=== PATIENT | male | born 1940 | race Caucasian/White ===

== ENCOUNTER → 2016-12-02 | Outpatient (CLI) | payer MEDICARE, OTHER ==
[2016-05-27 18:09] VITALS: BP 147/63
[~2016-12-02] MED LIST: ACET500T68 PO; AMLO5TAB2 PO; ASPI-482 PO; ASPI325T8 PO; ATOR10TA60 PO; CLOP75TA PO; CLOP75TA57 PO; COLON HELPER; DIPH25CA58 PO; DOCU-109 PO; FINA5TAB4 PO; FLUO10TA PO; GABA600T2 PO; GADOBUTROL 10 MMOL/10 ML VIAL IV ONE; HYDR12.53 PO; IRON1TAB30 PO; ISOS60TA2 PO; MULT-658 PO; OMEP40CA5 PO; PYRI100T PO; RANO500T2 PO; TAMS0.4C2 PO; ZOLP10TA4 PO
--- NOTE | 2016-12-02 12:33 | KCIC ---
MRI Cervical Spine Without Contrast History: Cervical and lumbar radiculopathy, involuntary spasms, neuropathy, ACDF, left radiculopathy for one year, chronic neck pain Technique: Multiplanar, multi sequential noncontrast MR imaging was performed of the cervical spine. Comparison: April 16, 2016 Findings: There is motion degradation, limits accurate evaluation of the neural foramina. As seen previously, there has been anterior cervical fusion at C5, C6, C7. Hardware is not accurately evaluated. Cervical vertebral body stature is unchanged, again superior height loss of C5. There is similar mild grade 1 anterior spondylolisthesis C4-5. There is no significant focal marrow edema. There is no new abnormality of the cervical medullary junction. C2-C3: Spinal canal is adequate. Neural foramina are not significantly narrowed. There is left facet degenerative change. C3-C4: There is again severe right and mild left facet degenerative change. There is uncovertebral degenerative change greater on the right. There is buckling of the ligamentum flavum. There is similar minimal posterior disc osteophyte complex. Central canal is borderline 10 mm. There is likely moderate to severe right and at least mild left neural foramina compromise. C4-C5: There is again fairly severe left and moderate right facet degenerative change. There is mild buckling of the ligamentum flavum. Central canal is minimally narrowed to approximately 9 mm. Right neural foramen is adequate, likely baln-jk-mwkdomxz narrowing of the left neural foramen. C5-C6: Spinal canal is adequate. There is bilateral facet hypertrophic change greater on the left. There is likely wirj-ze-mkjavedn narrowing of the left neural foramen, right neural foramen overall adequate. C6-C7: Spinal canal is adequate. Osteophytes again result in at least mild narrowing of the left neural foramen. Right neural foramen is not significantly narrowed. C7-T1: Spinal canal is adequate. There is facet degenerative change. There is likely mild narrowing of the left neural foramen, right neural foramen not significantly narrowed. Impression: 1. Exam is degraded by motion. Findings have not convincingly changed compared with the April 16, 2016 exam. There is mild spinal stenosis C4-5. There is suspected neural foramina compromise greatest on the right at C3-4, to a lesser degree at other levels. There has been anterior cervical fusion C5, C6, C7. Electronically signed by: Jordan Baker MD (12/02/2016 12:30 PM)
--- NOTE | 2016-12-02 13:00 | KCIC ---
MRI Lumbar Spine without contrast History: Cervical lumbar radiculopathy, involuntary spasms, previous surgeries, bilateral radiculopathy, chronic low back pain Technique: Multiplanar, multi sequential noncontrast MR imaging was performed of the lumbar spine. Contrast: None due to patient's renal function Comparison: March 25, 2016 Findings: There again has been multilevel posterolateral fusion L3, L4, L5, S1. Exam does not accurately evaluate integrity of hardware. Lumbar vertebral body stature is maintained. AP alignment is unchanged, similar minimal posterior subluxation of L5 relative S1. There is again fairly advanced degenerative disc disease at L1-2, similar associated endplate edema likely reactive/degenerative in etiology. There is again advanced degenerative disc disease at L4-5 and L5-S1, minimally at L2-3 and L3-4. Conus terminates at L1. There are T2 hyperintense foci of the bilateral kidneys, likely cysts. L1-L2: There is again disc osteophyte complex with superimposed bulge/protrusion greater in the far left lateral recess. There is mild/moderate buckling of the ligamentum flavum and moderate facet hypertrophic change. There is again moderate to severe left lateral recess stenosis, contact of the descending left L2 nerve root. There is mild/moderate narrowing of the central canal and mild right lateral recess stenosis. There is similar moderate to severe left and moderate right neural foramina compromise. L2-L3: There is vfzi-ke-hcdhiyex facet degenerative change and buckling of the ligamentum flavum. There is minimal disc osteophyte complex extending into the inferior neural foramina. There is mild neural foramina compromise bilaterally. There is minimal narrowing of the far right lateral recess as seen previously. L3-L4: There is again right laminectomy defect. There is facet hypertrophic change. Spinal canal is adequate. There is again mild narrowing of the neural foramina bilaterally in part by minimal disc osteophyte complex. L4-L5: There are again laminectomy defects. Posterior osteophytes slightly indent the ventral thecal sac greater in the left lateral recess, contact of the ventral surface descending left L5 nerve root. There is mild left lateral recess stenosis by osteophytes as seen previously. There is suspected mild bilateral neural foramina compromise greater on the left by osteophytes. L5-S1: There is fairly severe facet degenerative change. There is a broad right laminectomy defect. Spinal canal is overall adequate. There is again at least moderate narrowing of the left neural foramen by facet and disc osteophyte complex, also moderate narrowing on the right. Impression: 1. Findings are similar compared with the March 2016 exam. There again has been multilevel posterolateral fusion L3-S1.There is again multilevel lumbar degenerative disc disease, again endplate edema at L1-2 probably reactive/degenerative in etiology. There is again left lateral recess stenosis at L1-2 with contact descending left L2 nerve root, yeiu-kq-swfcipwk narrowing of the central canal at this level. 2. There is multilevel lumbar neural foramina compromise greatest bilaterally at L5-S1 and left greater than right at L1-2. Electronically signed by: Jordan Baker MD (12/02/2016 12:57 PM)
== END | disposition home or self-care (01) ==
LOC: KCIC MRI 10:29
PROVIDERS: ATTEND Neurological Surgery
DX: M51.36 Other intervertebral disc degeneration, lumbar region (principal); M25.78 Osteophyte, vertebrae; M48.06 Spinal stenosis, lumbar region
CPT/HCPCS: 72141; 72148; 82565

== ENCOUNTER → 2017-01-02 | Outpatient (CLI) | payer MEDICARE, OTHER ==
[2016-05-27 18:09] VITALS: BP 147/63
[~2017-01-02] MED LIST changes: -GADOBUTROL 10 MMOL/10 ML VIAL IV ONE; +IOHEXOL 180 MG/ML 10 ML VIAL. ONE; +methylPREDNISolone ACETATE 40 MG/ML VIAL. ONE; +methylPREDNISolone ACETATE 80 MG/ML VIAL. ONE
--- NOTE | 2017-01-03 01:22 | PAIN ---
DATE OF SERVICE: 01/02/2017 DIAGNOSES: 1. Lumbar radiculopathy with lumbar post-laminectomy syndrome. 2. Cervical radiculopathy with post-cervical laminectomy syndrome. 3. Right hip joint pain with osteoarthritis. HISTORY OF PRESENT ILLNESS: The patient is a 76-year-old male who returns for followup status post evaluation and holding his Plavix by clearance from his risk officer. He has been off of it for 10 days now by his reports. He reports significant pain still in low back, bilateral lower extremities, radiating anywhere from a 3-4 on a scale 10, currently is 3 today, worse with activity, standing, walking. It is a tingling pain that is becoming more constant and aching in the low back and lower extremity as well as the posterior gluteus, posterior thighs to the knees and the lower legs, occasionally in the calves bilaterally. The patient reports it awakens him at least twice at night. He is only sleeping about 3 hours at times. He has to reposition and get out of bed, and take pain medication to get some sleep. The patient reports no new motor or sensory deficits, no new bowel or bladder incontinence or other complaints. PHYSICAL EXAMINATION: VITAL SIGNS: Blood pressure is 120/68, pulse 67, respirations 18, temperature 97.4 degrees Fahrenheit, height is 5 feet 8 inches, weight is 189 pounds. GENERAL: The patient is awake, alert, oriented, appropriate, very pleasant demeanor. HEENT: Head shows normocephalic, atraumatic. Extraocular movements are intact, symmetrical. Oral cavity, mucous membranes are moist and pink. Dentition is intact. NECK: Shows anterior throat supple without palpable lymphadenopathy noted. Swallow reflex is symmetrical. CHEST: Shows normal on inspection. Breath sounds are clear to auscultation bilaterally. HEART: Shows S1 and S2 clear. ABDOMEN: Soft, nontender, nondistended. No palpable organomegaly, no rebound or guarding demonstrated. BACK: Shows spine grossly in midline with well-healed surgical scarring noted. The patient's lumbar paraspinous muscle shows some moderate tenderness to palpation, but only diffusely in the lower lumbar distribution. The patient shows good rotational motion with some limitation with extension, but not secondary to pain. No tenderness over the sacrum or sacroiliac regions. Lower extremities show deep tendon reflexes at 1+ in the patellar and tendo calcaneus tendons. Motor exam is strong with 5/5 dorsiflexion and extension as well as quadriceps and hamstring flexion equal. Peripheral pulses are 1+ and no edema bilaterally. Options were discussed with the patient and the patient's old chart was reviewed as his current medication regimen updated. Current review of systems updated today as well. I would like to proceed with a caudal approach epidural steroid injection. Risks were again discussed including, but not limited to bleeding, infection, possibility of epidural hematoma, subsequent neurologic compromise, dural puncture, headaches, spinal cord and/or nerve damage, side effects of steroid medication and poor results regarding pain control. The patient understands and wishes to proceed. The patient will return to clinic in approximately 2 weeks for followup, was counseled on return appointment, activity level and side effects to be aware of. The patient will start his Plavix again tonight as instructed with his risk officer and will follow up as scheduled. DIAGNOSES: Lumbar radiculopathy with post-lumbar laminectomy syndrome. PROCEDURE: Caudal approach epidural steroid injection using C-arm fluoroscopic guidance under sterile prep and drape using local anesthetic. Medications injected is 120 mg Depo-Medrol plus 10 mL of preservative-free normal saline and 2 mL Isovue for contrast. CONDITION AT DISCHARGE: Stable. The patient tolerated procedure well, had no complications. MARTIN RAMSAY MD DR: FARRAH/edmundo JOB#: [id number] / [id number]
== END | disposition home or self-care (01) ==
LOC: PNCL 09:27
PROVIDERS: ATTEND Anesthesiology
DX: M54.16 Radiculopathy, lumbar region (principal); M54.12 Radiculopathy, cervical region; M96.1 Postlaminectomy syndrome, not elsewhere classified; M16.11 Unilateral primary osteoarthritis, right hip; I25.10 Atherosclerotic heart disease of native coronary artery without angina pectoris; E78.00 Pure hypercholesterolemia, unspecified; I10 Essential (primary) hypertension; Z86.69 Personal history of other diseases of the nervous system and sense organs; Z86.14 Personal history of Methicillin resistant Staphylococcus aureus infection; Z88.6 Allergy status to analgesic agent
CPT/HCPCS: 62323; J1030; J1040

== ENCOUNTER → 2017-01-30 | Outpatient (CLI) | payer MEDICARE ==
[2016-05-27 18:09] VITALS: BP 147/63
--- NOTE | 2017-01-30 11:42 | PAIN ---
DATE OF SERVICE: 01/30/2017 PROGRESS NOTE FOR PAIN CLINIC DIAGNOSES: 1. Lumbar radiculopathy with post-lumbar laminectomy syndrome. 2. Cervical radiculopathy with post-cervical laminectomy syndrome. 3. Right hip joint pain with primary osteoarthritis, right hip joint. HISTORY OF PRESENT ILLNESS: The patient is a 76-year-old male who returns for followup status post caudal approach epidural steroid injection x 1, reports no significant improvement after the injection. Reports still significant pain in the low back, bilateral lower extremities, worse on the right than the left, radiating in to the posterior gluteus, posterior thighs, posterior lower legs, tingling, constant, aching, rates it as a 5 on a scale of 10 at its worse. Currently, a 3 on a scale of 10, which is at its least ____ average. The patient reports it is worse with walking, standing, change in positions, waking up from sleep about every 3-4 hours, has to reposition or take pain medication, get out of bed because of the pain. Also the right hip, he is scheduled to have a right total hip replacement in about 2 weeks. The patient reports he is off his Plavix now for 7 days, reports no new motor or sensory deficits, no new bowel or bladder incontinence or other complaints. PHYSICAL EXAMINATION: VITAL SIGNS: The patient's blood pressure is 141/78, pulse 61, respirations are 18, temperature is 98.1 degrees Fahrenheit. Height is 5 feet 8 inches, weighs 192 pounds. GENERAL: The patient is awake, alert, oriented, appropriate, very pleasant demeanor. HEENT: Head shows normocephalic, atraumatic. Extraocular movements are intact and symmetrical. Oral cavity, mucous membranes are moist and pink. Dentition is intact. NECK: Shows anterior throat is supple without palpable lymphadenopathy noted. Swallow reflex is symmetrical. CHEST: Shows normal on inspection. Breath sounds are clear to auscultation bilaterally. HEART: Shows S1 and S2 clear. No murmurs auscultated. ABDOMEN: Obese, soft, nontender, nondistended. BACK: Shows spine grossly in the midline. Flattening of lumbar lordotic curvature is noted with significant surgical scarring noted. The patient shows significant tenderness with palpation throughout the middle and lower distribution of paraspinous musculature with some limitation of motion both laterally as well as extension and flexion, but without significant pain, just limited rotation secondary to previous surgery. EXTREMITIES: Lower extremities show deep tendon reflexes 1+ in the patellar and tendo calcaneus tendons are equal. Motor exam is strong with 5/5 dorsiflexion, extension, quadriceps and hamstring flexion and symmetrical. Peripheral pulses are 1+ posterior tibial and equal bilaterally. Options were discussed with the patient and the patient's old chart was reviewed as his current medication regimen updated. Current review of systems updated today as well and we will proceed with the second in the series caudal epidural steroid injection with fluoroscopic guidance. Risks were again discussed including, but not limited to, bleeding, infection, possibility of epidural hematoma, subsequent neurologic compromise, dural puncture, headaches, spinal cord and/or nerve damage, side effects of steroid medication and poor results regarding pain control. The patient understands and wishes to proceed. The patient will return to clinic in approximately 2 weeks for followup. He was counseled to return appointment, activity level and side effects to be aware of. DIAGNOSES: Lumbar radiculopathy with post-lumbar laminectomy syndrome. PROCEDURE: Caudal approach epidural steroid injection using C-arm fluoroscopic guidance under sterile prep and drape using local anesthetic. MEDICATIONS INJECTED: A total of 120 mg Depo-Medrol plus 10 mL of preservative-free normal saline and 2 mL of Isovue for contrast. CONDITION AT DISCHARGE: Stable. The patient tolerated procedure well, had no complications. MARTIN RAMSAY MD DR: FARRAH/edmundo JOB#: [id number] / [id number]
== END | disposition home or self-care (01) ==
LOC: PNCL 09:20
PROVIDERS: ATTEND Anesthesiology
DX: M54.16 Radiculopathy, lumbar region (principal); M96.1 Postlaminectomy syndrome, not elsewhere classified; M54.12 Radiculopathy, cervical region; M16.11 Unilateral primary osteoarthritis, right hip; I25.10 Atherosclerotic heart disease of native coronary artery without angina pectoris; E78.00 Pure hypercholesterolemia, unspecified; I10 Essential (primary) hypertension; Z86.69 Personal history of other diseases of the nervous system and sense organs; Z86.14 Personal history of Methicillin resistant Staphylococcus aureus infection; Z88.8 Allergy status to other drugs, medicaments and biological substances
CPT/HCPCS: 62323; J1030; J1040

== ENCOUNTER 2017-03-27 12:18 | Emergency (ER) | payer MEDICARE ==
[~2017-03-27] VITALS: Ht 172.7 cm; Wt 86.2 kg
[~2017-03-27 12:18] MED LIST changes: -IOHEXOL 180 MG/ML 10 ML VIAL. ONE; -methylPREDNISolone ACETATE 40 MG/ML VIAL. ONE; -methylPREDNISolone ACETATE 80 MG/ML VIAL. ONE
[2017-03-27 13:05] VITALS: BP 162/79
[2017-03-27] MEDS ORDERED: ONDA4TAB12 PO (13:39)
[2017-03-27] MEDS ORDERED: PRED20TA PO (13:39)
--- NOTE | 2017-03-27 13:39 | PHYS DOC ---
Past Medical History Past Medical History: CAD, Hypertension, Other Additional Past Medical Histor: peripheral neuropathy, meningitis Past Surgical History: Coronary Bypass Surgery, Other Additional Past Surgical Histo: several back surgeries Alcohol Use: None Drug Use: None Adult General Chief Complaint Chief Complaint: KNEE PAIN HPI HPI Patient is a 76 year old male who presents ambulatory to the ED, using a cane, with the complaint of right knee pain. Patient states he had a right hip replacement about 6 weeks ago, done by Dr. Bradley Alvarez at [facility] orthopedics. He was back about 10 days ago for a checkup and a hip x-ray. They said his hip looked good. At that time his knee was hurting so he asked if they could x-ray his knee also. They told him he has arthritis in both of his knees, right greater than left. Since then, his pain has become progressively worse. His pain starts just above the knee and goes down the anteromedial aspect of his lower leg, and stops just above the medial malleolus. He does not have any pain or other sensation anywhere in his foot. He has not injured the knee. It does hurt worse when he weight bears and for that reason he's been using a cane which does help. He has been having some therapy for his hip. Patient states he has had 3 back surgeries, the last one was a lumbar fusion, in 2011. He does not have chronic radiculopathy pain. He does have a history of "neuropathy" in his feet. Orthopedics Dr. Contreras PCP Dr. Doug Mathew Review of Systems Review of Systems Constitutional: Denies fever or chills [] Musculoskeletal: Denies back pain or joint pain other than the right knee/leg pain as described in history of present illness Integument: Denies rash or skin lesions [] Allergies Allergies Allergies Coded Allergies Type Severity Reaction Last Updated Verified hydromorphone Allergy Mild combative 10/15/13 Yes Physical Exam Physical Exam Constitutional: Well developed, well nourished, no acute distress, non-toxic appearance. Alert, mentating normally, warm and dry. HENT: Normocephalic, atraumatic, bilateral external ears normal, nose normal. [] Eyes: conjunctiva normal, no discharge. [] Neck: Normal range of motion, no stridor. [] Skin: Warm, dry, no erythema, no rash. [] Extremities: No tenderness, no cyanosis, no clubbing, ROM intact, no edema. Right knee normal in appearance. No tenderness to palpation. No joint effusion, no swelling, no redness, no warmth. Right lower leg normal in appearance. No skin color change or skin abnormality. The calf is soft and nontender. There is trace pitting edema bilaterally pretibial and ankle. It is equal bilaterally. The patient describes the pain distribution as starting just above the patella and traveling down the anteromedial leg and ending an inch or 2 above the medial malleolus. There is some hyperesthesia to light touch just above the medial malleolus but no decreased or increased sensation anywhere else. She was able to actively lift his right leg off the bed and actively flex and extend at the knee repeatedly and states that is not causing any increase in pain or other symptoms. Neurologic: Alert and oriented X 3, normal motor function, no focal deficits noted. Dorsiflexion and plantar flexion of the great toes 5 over 5 without difficulty. EKG EKG [] Radiology/Procedures Radiology/Procedures [] Course & Med Decision Making Course & Med Decision Making Pertinent Labs and Imaging studies reviewed. (See chart for details) 76-year-old male presents with 10 days to 2 weeks of right leg pain that he initially complained of as right knee pain. I don't believe it's the knee joint that is painful. His knee joint is normal to inspection, nontender, not red or warm, and he has very normal and vigorous range of motion of his right knee without any complaint whatsoever. Due to the nature of the pain and the distribution, I believe it is radicular pain. I discussed this with the patient. We will treat for possible radiculopathy with a week long course of prednisone. The patient believes he was on prednisone once before, he can't remember for what, and thinks that it made him nauseated. We will try to mitigate this by swelling at the dose and to twice a day dosing, have him take it with meals, and I wrote him for some when necessary Zofran. He does have an appointment to see Dr. Contreras on Thursday for this complaint and I encouraged him to keep that appointment and see what he has to say about my theory. See instructions for plan. [] Dragon Disclaimer Dragon Disclaimer This electronic medical record was generated, in whole or in part, using a voice recognition dictation system. Departure Departure Impression: Primary Impression: Right leg pain Additional Impression: Radiculopathy of leg Disposition: 01 HOME, SELF-CARE Condition: STABLE Referrals: DOUG MATHEW MD (PCP) Patient Instructions: Radicular Pain Additional Instructions: As we discussed, I believe your pain is most likely nerve pain. We will try treating with 1 week of prednisone, which is an anti-inflammatory. Because you have had nausea with prednisone in the past, we will split the dose into 2 doses daily, one every 12 hours. Take the medication with a meal. I have prescribed a nausea medicine for you to have on hand in case it is needed. Follow-up as planned with Dr. Contreras for recheck and his opinion. Scripts Ondansetron (ONDANSETRON ODT) 4 Mg Tab.rapdis 1 TAB PO PRN Q6-8HRS for NAUSEA, #10 TAB Prov: LAST ROGERS MD 03/27/17 Prednisone (PREDNISONE) 20 Mg Tablet 20 MG PO BID for leg pain, pinched nerve for 7 Days, #14 TAB Prov: LAST ROGERS MD 03/27/17 Problem Qualifiers LAST ROGERS MD Mar 27, 2017 13:39
== END 2017-03-27 14:20 | disposition home or self-care (01) ==
LOC: ER 12:18
DX: M54.10 Radiculopathy, site unspecified (principal); M79.604 Pain in right leg; M25.561 Pain in right knee; I10 Essential (primary) hypertension; I25.10 Atherosclerotic heart disease of native coronary artery without angina pectoris; Z95.1 Presence of aortocoronary bypass graft; Z88.6 Allergy status to analgesic agent
CPT/HCPCS: 99283

== ENCOUNTER → 2017-04-07 | Outpatient (CLI) | payer MEDICARE ==
[2017-03-27 13:05] VITALS: BP 162/79
[~2017-04-07] MED LIST changes: +ONDA4TAB12 PO; +PRED20TA PO
--- NOTE | 2017-04-07 13:22 | KCIC ---
MR of the right knee Indication: Pain since March 18. No injury. Pain with weightbearing. Technique: The standard multiplanar sequences are obtained. Findings: Medial meniscus:Intact. Lateral meniscus: Intact. Anterior cruciate ligament: Intact Posterior cruciate ligament: Intact Medial collateral ligament: Intact. Iliotibial band: Intact. Posterolateral structures: Fibular collateral ligament, biceps tendon and popliteus tendon are intact. Extensor mechanism: Intact. Fluid: Trace joint fluid. Articular cartilage -patellofemoral joint: Severe chondromalacia at the weightbearing medial femoral condyle. -medial compartment: Severe chondromalacia at the medial femoral condyle. -lateral compartment:Intact Bones: No significant lesion or acute fracture. Soft tissue: Mild soft tissue edema. Impression: 1. No meniscal tear or internal derangement. 2. Severe primary osteoarthritis. Electronically signed by: Josué Salazar MD (04/07/2017 1:19 PM) [facility]
== END | disposition home or self-care (01) ==
LOC: KCIC MRI 11:55
PROVIDERS: ATTEND Orthopaedic Surgery
DX: M17.11 Unilateral primary osteoarthritis, right knee (principal); M94.261 Chondromalacia, right knee; Z98.890 Other specified postprocedural states
CPT/HCPCS: 73721

== ENCOUNTER → 2017-07-20 | Outpatient (CLI) | payer MEDICARE ==
[2017-07-20 09:19] LABS: ADD MAN DIFF? NO
[2017-07-20 09:32] LABS: BASO % 1 % (0-3); EOS # 0.2 x10^3/uL (0.0-0.7); EOS % 3 % (0-3); HEMATOCRIT 38.3 % (39.0-53.0); HEMOGLOBIN 12.6 g/dL (13.0-17.5); LYMPH # 1.2 x10^3/uL (1.0-4.8); LYMPH % 24 % (24-48); MEAN CORPUSCULAR HEMOGLOBIN 27 pg (25-35); MEAN CORPUSCULAR HGB CONC 33 g/dL (31-37); MEAN CORPUSCULAR VOLUME 83 fL (79-100); MONO # 0.5 x10^3/uL (0.0-1.1); MONO % 9 % (0-9); NEUT # 3.1 x10^3uL (1.8-7.7); NEUT % 63 % (31-73); PLATELET COUNT 192 x10^3/uL (140-400); RED BLOOD COUNT 4.63 x10^6/uL (4.30-5.70); RED CELL DISTRIBUTION WIDTH 23.6 % (11.5-14.5)
[2017-07-20 09:36] LABS: PARTIAL THROMBOPLASTIN TIME 29 SEC (24-38); PROTHROMBIN TIME PATIENT 12.8 SEC (11.7-14.0)
[2017-07-20 09:52] LABS: ALBUMIN 3.5 g/dL (3.4-5.0); ANION GAP 8 (6-14); BLOOD UREA NITROGEN 21 mg/dL (8-26); CALCIUM 9.6 mg/dL (8.5-10.1); CARBON DIOXIDE 32 mmol/L (21-32); CHLORIDE 103 mmol/L (98-107); CREATININE 1.6 mg/dL (0.7-1.3); GLUCOSE 120 mg/dL (70-99); POTASSIUM 4.2 mmol/L (3.5-5.1); SODIUM 143 mmol/L (136-145)
[2017-07-20 10:57] LABS: SEDIMENTATION RATE 5 (0-15)
[2017-07-20 11:43] LABS: ANISOCYTOSIS PRESENT; PLATELET CLUMP PRESENT; PLT ESTIMATE ADEQUATE (ADEQUATE)
[2017-07-20 14:00] LABS: BILIRUBIN,URINE NEGATIVE (NEG); CLARITY,URINE CLEAR; COLOR,URINE AMBER; GLUCOSE,URINE NEGATIVE (NEG); NITRITE,URINE NEGATIVE (NEG); PROTEIN,URINE 100 mg/dL (NEG-TRACE); UROBILINOGEN,URINE 0.2 mg/dL (0.2 mg/dL)
[2017-07-20 14:14] LABS: BACTERIA,URINE 0 /HPF (0-FEW); HYALINE CASTS, URINE MANY /HPF; RBC,URINE OCC /HPF (0-2)
[2017-07-20 22:13] LABS: MRSA BY PCR Negative (Negative)
== END | disposition home or self-care (01) ==
LOC: SURGPAT 13:33
DX: Z01.818 Encounter for other preprocedural examination (principal); M17.11 Unilateral primary osteoarthritis, right knee; I25.10 Atherosclerotic heart disease of native coronary artery without angina pectoris
CPT/HCPCS: 36415; 80048; 81001; 82040; 82306; 85025; 85610; 85651; 85730; 87086; 87641; 93005

== ENCOUNTER 2017-09-01 08:23 | Inpatient (IN) | payer MEDICARE ==
[~2017-09-01 08:23] MED LIST changes: -ACET500T68 PO; -AMLO5TAB2 PO; -ASPI-482 PO; -ASPI325T8 PO; -ATOR10TA60 PO; +CELECOXIB 200 MG CAPSULE. PO; -CLOP75TA PO; -CLOP75TA57 PO; -COLON HELPER; -DIPH25CA58 PO; -DOCU-109 PO; -FINA5TAB4 PO; -FLUO10TA PO; -GABA600T2 PO; -HYDR12.53 PO; -IRON1TAB30 PO; -ISOS60TA2 PO; +LIDOCAINE 1% PF 2 ML VIAL. ID; -MULT-658 PO; -OMEP40CA5 PO; -ONDA4TAB12 PO; +ONDANSETRON PF 4 MG/2 ML VIAL. IV; -PRED20TA PO; -PYRI100T PO; -RANO500T2 PO; -TAMS0.4C2 PO; -ZOLP10TA4 PO; +fentaNYL PF VIAL 100 MCG/2 ML VIAL IV
[2017-09-01] MEDS: IV RINGERS,LACTATED 1000ML 1,000 ML IV (09:23)
[2017-09-01] MEDS: ACETAMINOPHEN 500 MG TABLET PO (09:34)
[2017-09-01] MEDS ORDERED: LIDOCAINE 1% PF 5 ML VIAL. (09:51)
[2017-09-01] MEDS ORDERED: PROPOFOL 20 ML IV (09:51)
[2017-09-01] MEDS ORDERED: DEXAMETHASONE SOD PHOS 20 MG/5 ML VIAL. (09:51)
[2017-09-01] MEDS ORDERED: FAMOTIDINE 20 MG/2 ML VIAL (09:51)
[2017-09-01] MEDS ORDERED: ROCURONIUM 50 MG/5 ML VIAL. (09:51)
[2017-09-01] MEDS ORDERED: fentaNYL PF VIAL 100 MCG/2 ML VIAL (09:51)
[2017-09-01] MEDS ORDERED: ONDANSETRON PF 4 MG/2 ML VIAL. (09:51)
[2017-09-01] MEDS ORDERED: GLYCOPYRROLATE 1 MG/5 ML VIAL. (10:56)
[2017-09-01] MEDS: TRANEXAMIC ACID 1,000 MG in IV NS 50ML -- 1ST BAG INJ (11:08)
[2017-09-01] MEDS: TOBRAMYCIN POWDER 1.2 GM VIAL. (11:16)
[2017-09-01] MEDS: VANCOMYCIN 1 GM VIAL. (11:16)
[2017-09-01] MEDS ORDERED: hydrALAZINE 20 MG/ML VIAL. (11:24)
[2017-09-01] MEDS: MORPHINE SULFATE 5 MG, KETOROLAC 30 MG, ROPIVacaine 0.5% PF 60 ML, EPINEPHrine 0.5 MG i... INT ART (11:25)
[2017-09-01] MEDS: TRANEXAMIC ACID 1,000 MG in IV NS 50ML -- 2ND BAG INJ (12:00)
[2017-09-01] MEDS ORDERED: NEOSTIGMINE 10 MG/10 ML VIAL. (12:09)
[2017-09-01] MEDS ORDERED: DESFLURANE 61 TO 120 MINUTES IH (12:32)
[2017-09-01] MEDS: PROCHLORPERAZINE 10 MG/2 ML VIAL. IV (12:57)
[2017-09-01] MEDS: fentaNYL PF VIAL 100 MCG/2 ML VIAL IV ×2 (12:57→13:14)
[2017-09-01] MEDS ORDERED: fentaNYL PF VIAL 100 MCG/2 ML VIAL IV (13:00)
[2017-09-01] MEDS ORDERED: traMADol 50 MG TABLET PO ×2 (13:00)
[2017-09-01] MEDS ORDERED: oxyCODONE/APAP 7.5/325 1 TAB TABLET PO (13:00)
[2017-09-01] MEDS ORDERED: 0.9 % SODIUM CHLORIDE 10 ML DISP.SYRIN. IV (13:00)
[2017-09-01] MEDS ORDERED: CALCIUM CARBONATE 500 MG TAB.CHEW PO (13:00)
[2017-09-01] MEDS ORDERED: PROCHLORPERAZINE 5 MG TABLET. PO (13:00)
[2017-09-01] MEDS ORDERED: METOCLOPRAMIDE HCL 10 MG/2 ML VIAL. IV (13:00)
[2017-09-01] MEDS ORDERED: diphenhydrAMINE 50 MG/ML VIAL IV (13:00)
[2017-09-01] MEDS ORDERED: DEXTROSE 50% 25 GM / 50ML DISP.SYRIN. IV (13:00)
[2017-09-01] MEDS ORDERED: PROCHLORPERAZINE 10 MG/2 ML VIAL. IV (13:00)
[2017-09-01] MEDS: FERROUS SULFATE 325 MG TABLET. PO (17:09)
[2017-09-01] MEDS: IV DEXTROSE 5 %-0.45 % NACL 1,000 ML IV (17:11)
[2017-09-01] MEDS: KETOROLAC 30 MG, BUPIVACAINE MPF 0.25% 20 ML, EPINEPHrine 0.5 MG in TOTAL VOLUME SYRING... INT ART (17:20)
[2017-09-01] MEDS: ASPIRIN ENTERIC COATED 325 MG TABLET.DR. PO (21:12)
[2017-09-01] MEDS: TAMSULOSIN 0.4 MG CAP.ER.24H. PO (21:12)
[2017-09-01] MEDS: GABAPENTIN 300 MG CAPSULE. PO (21:13)
[2017-09-01] MEDS: RANOLAZINE 500 MG TAB.ER.12H PO (21:15)
[2017-09-01] MEDS: ZOLPIDEM 5 MG TABLET. PO (21:15)
[2017-09-02] MEDS: ACETAMINOPHEN 325 MG TABLET. PO ×2 (02:37→11:37)
[2017-09-02] MEDS: KETOROLAC 30 MG, BUPIVACAINE MPF 0.25% 20 ML, EPINEPHrine 0.5 MG in TOTAL VOLUME SYRING... INT ART (05:22)
[2017-09-02 05:49] LABS: HEMATOCRIT 33.6 % (39.0-53.0); HEMOGLOBIN 11.2 g/dL (13.0-17.5); MEAN CORPUSCULAR HGB CONC 33 g/dL (31-37)
[2017-09-02] MEDS: PANTOPRAZOLE 40 MG TABLET.DR. PO (07:02)
[2017-09-02] MEDS: FLUoxetine HCL 20 MG CAPSULE PO (08:10)
[2017-09-02] MEDS: GABAPENTIN 300 MG CAPSULE. PO ×2 (08:10→21:09)
[2017-09-02] MEDS: ATORVASTATIN CALCIUM 10 MG TABLET. PO (08:10)
[2017-09-02] MEDS: RANOLAZINE 500 MG TAB.ER.12H PO ×2 (08:13→21:09)
[2017-09-02] MEDS: ISOSORBIDE MONONITRATE ER 30 MG TAB.ER.24H PO (08:14)
[2017-09-02] MEDS: CELECOXIB 100 MG CAPSULE. PO (08:14)
[2017-09-02] MEDS: FINASTERIDE 5 MG TABLET. PO (08:14)
[2017-09-02] MEDS: CLOPIDOGREL BISULFATE 75 MG TABLET PO (08:14)
[2017-09-02] MEDS: ASPIRIN ENTERIC COATED 325 MG TABLET.DR. PO ×2 (08:14→21:09)
[2017-09-02] MEDS: SENNOSIDES/DOCUSATE 8.6/50MG TABLET. PO (08:14)
[2017-09-02] MEDS: MULTIVITAMIN with MINERAL TABLET. PO (08:14)
[2017-09-02] MEDS: FERROUS SULFATE 325 MG TABLET. PO ×2 (08:14→17:04)
[2017-09-02] MEDS: amLODIPine BESYLATE 5 MG TABLET PO (08:15)
[2017-09-02] MEDS: POLYETHYLENE GLYCOL 3350 17 GM PACKET. PO (08:18)
[2017-09-02] MEDS ORDERED: CELECOXIB 200 MG CAPSULE. PO (09:00)
[2017-09-02] MEDS ORDERED: BISACODYL 10 MG SUPP.RECT. PR (16:00)
[2017-09-02] MEDS: HYDROcodone/APAP 7.5/325MG 1 TAB TABLET PO ×2 (17:04→21:11)
[2017-09-02] MEDS: MAGNESIUM HYDROXIDE 2,400 MG/30 ML ORAL.SUSP. PO (20:16)
[2017-09-02] MEDS: TAMSULOSIN 0.4 MG CAP.ER.24H. PO (21:09)
[2017-09-03] MEDS: ZOLPIDEM 5 MG TABLET. PO ×2 (00:06→21:17)
[2017-09-03 06:09] LABS: HEMATOCRIT 30.7 % (39.0-53.0); HEMOGLOBIN 10.2 g/dL (13.0-17.5); MEAN CORPUSCULAR HGB CONC 33 g/dL (31-37)
[2017-09-03 06:24] LABS: ANION GAP 6 (6-14); BLOOD UREA NITROGEN 24 mg/dL (8-26); CALCIUM 8.4 mg/dL (8.5-10.1); CARBON DIOXIDE 31 mmol/L (21-32); CHLORIDE 104 mmol/L (98-107); CREATININE 1.7 mg/dL (0.7-1.3); GFR 39.2; GLUCOSE 121 mg/dL (70-99); POTASSIUM 4.4 mmol/L (3.5-5.1); SODIUM 141 mmol/L (136-145)
[2017-09-03] MEDS: PANTOPRAZOLE 40 MG TABLET.DR. PO (07:19)
[2017-09-03] MEDS: HYDROcodone/APAP 10/325 1 TAB TABLET PO (07:23)
[2017-09-03] MEDS: POLYETHYLENE GLYCOL 3350 17 GM PACKET. PO (08:35)
[2017-09-03] MEDS: CELECOXIB 100 MG CAPSULE. PO (08:36)
[2017-09-03] MEDS: ASPIRIN ENTERIC COATED 325 MG TABLET.DR. PO ×2 (08:36→21:06)
[2017-09-03] MEDS: SENNOSIDES/DOCUSATE 8.6/50MG TABLET. PO (08:36)
[2017-09-03] MEDS: CLOPIDOGREL BISULFATE 75 MG TABLET PO (08:36)
[2017-09-03] MEDS: FINASTERIDE 5 MG TABLET. PO (08:36)
[2017-09-03] MEDS: FERROUS SULFATE 325 MG TABLET. PO ×2 (08:36→17:08)
[2017-09-03] MEDS: FLUoxetine HCL 20 MG CAPSULE PO (08:36)
[2017-09-03] MEDS: GABAPENTIN 300 MG CAPSULE. PO ×2 (08:36→21:06)
[2017-09-03] MEDS: MULTIVITAMIN with MINERAL TABLET. PO (08:36)
[2017-09-03] MEDS: ATORVASTATIN CALCIUM 10 MG TABLET. PO (08:36)
[2017-09-03] MEDS: ISOSORBIDE MONONITRATE ER 30 MG TAB.ER.24H PO (08:41)
[2017-09-03] MEDS: RANOLAZINE 500 MG TAB.ER.12H PO ×2 (08:41→21:07)
[2017-09-03] MEDS: oxyCODONE/APAP 5/325 1 TAB TABLET PO ×2 (10:06→14:42)
[2017-09-03] MEDS: amLODIPine BESYLATE 5 MG TABLET PO (12:40)
[2017-09-03] MEDS: TAMSULOSIN 0.4 MG CAP.ER.24H. PO (21:06)
[2017-09-03] MEDS: HYDROcodone/APAP 7.5/325MG 1 TAB TABLET PO (21:17)
[2017-09-04] MEDS: HYDROcodone/APAP 7.5/325MG 1 TAB TABLET PO ×4 (04:39→16:10)
[2017-09-04] MEDS: PANTOPRAZOLE 40 MG TABLET.DR. PO (07:13)
[2017-09-04 07:19] LABS: HEMATOCRIT 30.7 % (39.0-53.0); HEMOGLOBIN 10.3 g/dL (13.0-17.5); MEAN CORPUSCULAR HGB CONC 34 g/dL (31-37)
[2017-09-04] MEDS: MULTIVITAMIN with MINERAL TABLET. PO (08:18)
[2017-09-04] MEDS: GABAPENTIN 300 MG CAPSULE. PO (08:18)
[2017-09-04] MEDS: CLOPIDOGREL BISULFATE 75 MG TABLET PO (08:18)
[2017-09-04] MEDS: SENNOSIDES/DOCUSATE 8.6/50MG TABLET. PO (08:19)
[2017-09-04] MEDS: FLUoxetine HCL 20 MG CAPSULE PO (08:19)
[2017-09-04] MEDS: ATORVASTATIN CALCIUM 10 MG TABLET. PO (08:19)
[2017-09-04] MEDS: ASPIRIN ENTERIC COATED 325 MG TABLET.DR. PO (08:19)
[2017-09-04] MEDS: FERROUS SULFATE 325 MG TABLET. PO (08:19)
[2017-09-04] MEDS: POLYETHYLENE GLYCOL 3350 17 GM PACKET. PO (08:19)
[2017-09-04] MEDS: FINASTERIDE 5 MG TABLET. PO (08:19)
[2017-09-04] MEDS: amLODIPine BESYLATE 5 MG TABLET PO (09:00)
[2017-09-04] MEDS: ISOSORBIDE MONONITRATE ER 30 MG TAB.ER.24H PO (09:00)
[2017-09-04] MEDS: RANOLAZINE 500 MG TAB.ER.12H PO (09:00)
== END 2017-09-04 16:30 | disposition home health service (06) | DRG 470 ==
LOC: OPSVCIP 08:23 → 4 SOUTHEST 14:25
PROC: 0SRC0J9 Replacement of Right Knee Joint with Synthetic Substitute, Cemented, Open Approach (ICD-10-PCS; principal; 2017-09-01 10:41)
DX: M17.11 Unilateral primary osteoarthritis, right knee (principal); G62.9 Polyneuropathy, unspecified; I10 Essential (primary) hypertension; I25.10 Atherosclerotic heart disease of native coronary artery without angina pectoris; M54.5 Low back pain; N40.0 Benign prostatic hyperplasia without lower urinary tract symptoms; Z96.641 Presence of right artificial hip joint; Z95.1 Presence of aortocoronary bypass graft; Z88.8 Allergy status to other drugs, medicaments and biological substances
CPT/HCPCS: 36415; 73560; 80048; 85014; 85018; 86850; 86900; 86901; 88305; 88311; 97110-GO; 97116-GP; 97150-GP; 97162-GP; 97165-GO; 97530-GP; 97535-GO; C1713; J0171; J0360; J0690; J0780; J1100; J1885; J2270; J2405; J2704; J2710; J2795; J3010; J3260; J3370; J3490; J7030; J7120; S0028

== ENCOUNTER 2017-09-15 11:17 | Inpatient (IN) | payer MEDICARE ==
[2017-09-15 12:03] LABS: ADD MAN DIFF? NO
[2017-09-15 12:11] LABS: BASO # 0.1 x10^3/uL (0.0-0.2); BASO % 1 % (0-3); EOS # 0.1 x10^3/uL (0.0-0.7); EOS % 1 % (0-3); HEMATOCRIT 29.6 % (39.0-53.0); HEMOGLOBIN 9.7 g/dL (13.0-17.5); LYMPH # 1.1 x10^3/uL (1.0-4.8); LYMPH % 13 % (24-48); MEAN CORPUSCULAR HEMOGLOBIN 29 pg (25-35); MEAN CORPUSCULAR HGB CONC 33 g/dL (31-37); MEAN CORPUSCULAR VOLUME 88 fL (79-100); MONO # 0.6 x10^3/uL (0.0-1.1); MONO % 7 % (0-9); NEUT # 6.6 x10^3uL (1.8-7.7); NEUT % 79 % (31-73); PLATELET COUNT 428 x10^3/uL (140-400); RED BLOOD COUNT 3.37 x10^6/uL (4.30-5.70); RED CELL DISTRIBUTION WIDTH 15.8 % (11.5-14.5); WHITE BLOOD COUNT 8.4 x10^3/uL (4.0-11.0)
[2017-09-15 12:17] LABS: ANION GAP 8 (6-14); BLOOD UREA NITROGEN 38 mg/dL (8-26); BUN/CREATININE RATIO 17 (6-20); CALCIUM 9.1 mg/dL (8.5-10.1); CARBON DIOXIDE 29 mmol/L (21-32); CHLORIDE 106 mmol/L (98-107); CREATININE 2.3 mg/dL (0.7-1.3); GFR 27.6; GLUCOSE 140 mg/dL (70-99); POTASSIUM 4.3 mmol/L (3.5-5.1); SODIUM 143 mmol/L (136-145)
[2017-09-15 12:23] LABS: ALBUMIN 2.7 g/dL (3.4-5.0); ALBUMIN/GLOBULIN RATIO 0.9 (1.0-1.7); ALK PHOS 64 U/L (46-116); ALT (SGPT) 12 U/L (16-63); AST (SGOT) 17 U/L (15-37); MAGNESIUM 2.2 mg/dL (1.8-2.4); TOTAL BILIRUBIN 0.5 mg/dL (0.2-1.0); TOTAL PROTEIN 5.7 g/dL (6.4-8.2)
[2017-09-15 12:27] LABS: TROPONINI 0.084 ng/mL (0.000-0.055)
[2017-09-15 12:29] LABS: NT-PRO BNP 2433 pg/mL (0-449)
[2017-09-15] MEDS ORDERED: ONDANSETRON PF 4 MG/2 ML VIAL. IV (15:30)
[2017-09-15] MEDS: IV NORMAL SALINE 500ML BAG 500 ML IV (16:00)
[2017-09-15] MEDS: IV NORMAL SALINE 1000ML BAG 1,000 ML IV (16:45)
[2017-09-15 19:16] LABS: TROPONINI 0.069 ng/mL (0.000-0.055)
[2017-09-15] MEDS: ATORVASTATIN CALCIUM 10 MG TABLET. PO (20:23)
[2017-09-15] MEDS: TAMSULOSIN 0.4 MG CAP.ER.24H. PO (20:23)
[2017-09-15] MEDS: ACETAMINOPHEN 325 MG TABLET. PO (20:23)
[2017-09-15] MEDS: GABAPENTIN 300 MG CAPSULE. PO (20:23)
[2017-09-15 22:49] LABS: TROPONINI 0.063 ng/mL (0.000-0.055)
[2017-09-16 05:16] LABS: ADD MAN DIFF? NO
[2017-09-16 05:35] LABS: ANION GAP 8 (6-14); BLOOD UREA NITROGEN 34 mg/dL (8-26); CALCIUM 8.6 mg/dL (8.5-10.1); CARBON DIOXIDE 29 mmol/L (21-32); CHLORIDE 108 mmol/L (98-107); GFR 32.5; GLUCOSE 115 mg/dL (70-99); POTASSIUM 3.7 mmol/L (3.5-5.1); SODIUM 145 mmol/L (136-145)
[2017-09-16 05:42] LABS: BASO # 0.1 x10^3/uL (0.0-0.2); BASO % 1 % (0-3); EOS # 0.1 x10^3/uL (0.0-0.7); EOS % 2 % (0-3); HEMATOCRIT 27.9 % (39.0-53.0); HEMOGLOBIN 9.2 g/dL (13.0-17.5); LYMPH # 1.4 x10^3/uL (1.0-4.8); LYMPH % 22 % (24-48); MEAN CORPUSCULAR HEMOGLOBIN 29 pg (25-35); MEAN CORPUSCULAR HGB CONC 33 g/dL (31-37); MEAN CORPUSCULAR VOLUME 87 fL (79-100); MONO # 0.5 x10^3/uL (0.0-1.1); MONO % 9 % (0-9); NEUT # 4.1 x10^3uL (1.8-7.7); NEUT % 66 % (31-73); PLATELET COUNT 398 x10^3/uL (140-400); RED BLOOD COUNT 3.19 x10^6/uL (4.30-5.70); RED CELL DISTRIBUTION WIDTH 15.2 % (11.5-14.5); WHITE BLOOD COUNT 6.1 x10^3/uL (4.0-11.0)
[2017-09-16] MEDS: ACETAMINOPHEN 325 MG TABLET. PO ×2 (05:54→13:11)
[2017-09-16] MEDS ORDERED: BENZOCAINE/MENTHOL LOZENGE. PO (09:00)
[2017-09-16] MEDS: POLYETHYLENE GLYCOL 3350 17 GM PACKET. PO (09:00)
[2017-09-16] MEDS ORDERED: LIDOCAINE 2% VISCOUS 15 ML SOLUTION. SWSW (09:00)
[2017-09-16] MEDS: CLOPIDOGREL BISULFATE 75 MG TABLET PO (09:06)
[2017-09-16] MEDS: GABAPENTIN 300 MG CAPSULE. PO (09:06)
[2017-09-16] MEDS: PANTOPRAZOLE 40 MG TABLET.DR. PO (09:06)
[2017-09-16] MEDS: PYRIDOXINE 50 MG TABLET. PO (09:06)
[2017-09-16] MEDS: FLUoxetine HCL 20 MG CAPSULE PO (09:06)
[2017-09-16] MEDS: ASCORBIC ACID 500 MG TABLET PO (09:06)
[2017-09-16] MEDS: FINASTERIDE 5 MG TABLET. PO (09:07)
[2017-09-16] MEDS: CYANOCOBALAMIN (VITAMIN B-12) 1,000 MCG TABLET. PO (09:07)
[2017-09-16] MEDS: ASPIRIN 325 MG TABLET PO (09:07)
[2017-09-16] MEDS: MULTIVITAMIN with MINERAL TABLET. PO (09:07)
[2017-09-16] MEDS: FERROUS SULFATE 325 MG TABLET. PO (09:14)
[2017-09-16] MEDS: NYSTATIN 100,000 UNITS/ML 5 ML ORAL.SUSP. SWSW ×2 (09:14→13:11)
== END 2017-09-16 16:30 | disposition home or self-care (01) | DRG 683 ==
LOC: ER 11:17 → 2 SOUTH 12:35
DX: N17.9 Acute kidney failure, unspecified (principal); I13.0 Hypertensive heart and chronic kidney disease with heart failure and stage 1 through stage 4 chronic kidney disease, or unspecified chronic kidney disease; G62.9 Polyneuropathy, unspecified; I95.9 Hypotension, unspecified; I50.9 Heart failure, unspecified; E86.0 Dehydration; F03.90 Unspecified dementia, unspecified severity, without behavioral disturbance, psychotic disturbance, mood disturbance, and anxiety; G47.30 Sleep apnea, unspecified; I25.10 Atherosclerotic heart disease of native coronary artery without angina pectoris; I95.1 Orthostatic hypotension; K21.9 Gastro-esophageal reflux disease without esophagitis; N18.3 Chronic kidney disease, stage 3 (moderate); Z96.649 Presence of unspecified artificial hip joint; Z96.651 Presence of right artificial knee joint; N40.1 Benign prostatic hyperplasia with lower urinary tract symptoms; R33.8 Other retention of urine; E78.5 Hyperlipidemia, unspecified; G47.00 Insomnia, unspecified; F32.9 Major depressive disorder, single episode, unspecified; Z95.5 Presence of coronary angioplasty implant and graft; Z95.1 Presence of aortocoronary bypass graft; Z86.61 Personal history of infections of the central nervous system
CPT/HCPCS: 36415; 71045; 80048; 80053; 83735; 83880; 84484; 85025; 87040; 93005; 99285; 99285-25; J7030

== ENCOUNTER → 2017-11-23 | Outpatient (CLI) | payer MEDICARE ==
[2017-11-23] MEDS: ZOLPIDEM 5 MG TABLET. PO (22:26)
[2017-11-24] MEDS: OXYMETAZOLINE 0.05% NASAL SPRAY 30ML BOTTLE. NS (01:30)
== END | disposition home or self-care (01) ==
LOC: RT 18:21
DX: G47.33 Obstructive sleep apnea (adult) (pediatric) (principal); I13.0 Hypertensive heart and chronic kidney disease with heart failure and stage 1 through stage 4 chronic kidney disease, or unspecified chronic kidney disease; I50.9 Heart failure, unspecified; N18.3 Chronic kidney disease, stage 3 (moderate); E78.5 Hyperlipidemia, unspecified
CPT/HCPCS: 95810

== ENCOUNTER → 2017-12-23 | Outpatient (CLI) | payer MEDICARE ==
[2017-12-23 08:53] LABS: ISTAT CREATININE 1.5 mg/dL (0.7-1.3)
== END | disposition home or self-care (01) ==
LOC: KCIC MRI 08:13
DX: M51.16 Intervertebral disc disorders with radiculopathy, lumbar region (principal); M48.061 Spinal stenosis, lumbar region without neurogenic claudication; M25.78 Osteophyte, vertebrae; I13.0 Hypertensive heart and chronic kidney disease with heart failure and stage 1 through stage 4 chronic kidney disease, or unspecified chronic kidney disease; I50.9 Heart failure, unspecified; N18.3 Chronic kidney disease, stage 3 (moderate); E78.5 Hyperlipidemia, unspecified; E78.00 Pure hypercholesterolemia, unspecified; Z79.01 Long term (current) use of anticoagulants
CPT/HCPCS: 72148; 82565

== ENCOUNTER → 2018-01-19 | Outpatient (CLI) | payer MEDICARE ==
[2017-09-16 14:56] VITALS: BP 132/53
[~2018-01-19] MED LIST changes: +ACET500T68 PO; +AMLO5TAB2 PO; +ASCO500T2 PO; +ASPI-482 PO; +ASPI325T8 PO; +ATOR10TA60 PO; +CELE200C PO; -CELECOXIB 200 MG CAPSULE. PO; +CLOP75TA PO; +CLOP75TA57 PO; +COLON HELPER; +CYAN10005 PO; +DIPH25CA58 PO; +DIPH50CA25 PO; +DOCU-109 PO; +FERR325T14 PO; +FINA5TAB4 PO; +FLUO10TA PO; +FURO20TA3 PO; +GABA600T2 PO; +HYDR-2762 PO; +HYDR12.53 PO; +IRON1TAB30 PO; +ISOS60TA2 PO; -LIDOCAINE 1% PF 2 ML VIAL. ID; +MIRT15TA3 PO; +MULT-658 PO; +OMEP40CA5 PO; +ONDA4TAB12 PO; -ONDANSETRON PF 4 MG/2 ML VIAL. IV; +POLY17PO29 PO; +POTA20TA82 PO; +PRED20TA PO; +PYRI100T PO; +RANO500T2 PO; +SENN1TAB70 PO; +TAMS0.4C2 PO; +ZOLP10TA4 PO; -fentaNYL PF VIAL 100 MCG/2 ML VIAL IV
[2018-01-19 14:19] LABS: BASO # 0.1 x10^3/uL (0.0-0.2); BASO % 1 % (0-3); EOS # 0.2 x10^3/uL (0.0-0.7); EOS % 3 % (0-3); HEMATOCRIT 37.2 % (39.0-53.0); HEMOGLOBIN 12.6 g/dL (13.0-17.5); LYMPH # 1.5 x10^3/uL (1.0-4.8); LYMPH % 26 % (24-48); MEAN CORPUSCULAR HEMOGLOBIN 30 pg (25-35); MEAN CORPUSCULAR HGB CONC 34 g/dL (31-37); MEAN CORPUSCULAR VOLUME 89 fL (79-100); MONO # 0.6 x10^3/uL (0.0-1.1); MONO % 10 % (0-9); NEUT # 3.4 x10^3uL (1.8-7.7); NEUT % 60 % (31-73); PLATELET COUNT 184 x10^3/uL (140-400); RED CELL DISTRIBUTION WIDTH 13.6 % (11.5-14.5); WHITE BLOOD COUNT 5.7 x10^3/uL (4.0-11.0)
[2018-01-19 14:33] LABS: ALBUMIN 3.5 g/dL (3.4-5.0); ALBUMIN/GLOBULIN RATIO 1.2 (1.0-1.7); CALCIUM 8.6 mg/dL (8.5-10.1); GFR 32.4; POTASSIUM 4.6 mmol/L (3.5-5.1); TOTAL BILIRUBIN 0.4 mg/dL (0.2-1.0); TOTAL PROTEIN 6.4 g/dL (6.4-8.2)
--- NOTE | 2018-01-20 15:07 | PREOP HP ---
DATE OF SERVICE: 01/19/2018 Humberto Conrad RN dictating for Dr. Ramirez Alcantar. HISTORY OF PRESENT ILLNESS: The patient is a pleasant 77-year-old who has developed increasing lower back pain, which is more severe on the right side with right posterior thigh and leg weakness and a left posterior thigh pain. The problems he state has been ongoing for years with regard to pain in his lower back, but has become much worse recently. He says he now has a constant 4/10 pain. Lifting and walking increases his pain. If he walks for any distance, he has difficulty and must sit. He takes Aleve and gabapentin. He was in physical therapy last summer as well as had epidural steroid injections recently, which have not given him lasting relief. PAST MEDICAL HISTORY: Arthritis, heart disease, hypertension, MRSA infection, ulcers, headaches, peripheral neuropathy. PAST SURGICAL HISTORY: Previous lumbar surgeries, ACDF, CABG x 6 in 2000, sinus surgery in 2010. FAMILY HISTORY: The patient has a family history of cancer, heart disease and hypertension. SOCIAL HISTORY: The patient is retired and . He has a past history of smoking more than 40 years ago. He would smoke 1 pack per day. He denies alcohol consumption. ALLERGIES: HE HAS ALLERGIES TO DILAUDID. CURRENT MEDICATIONS: Iron, centrum silver, gabapentin, Ambien, clopidogrel, tamsulosin, amlodipine, fluoxetine, omeprazole, isosorbide, vitamin B6, cream, atorvastatin and Aleve. REVIEW OF SYSTEMS: A 12-point review of systems was obtained and is noncontributory except for that mentioned above. PHYSICAL EXAMINATION: NEUROSURGERY EXAMINATION: GENERAL APPEARANCE: Alert, pleasant, in no acute distress. HEAD: Normocephalic, atraumatic. SKIN: Warm and dry. Well-healed lumbar incision. MUSCULOSKELETAL: Lumbar paraspinal muscle bulk is normal, restricted range of motion of lumbar spine, [id number] tenderness of lower lumbar spine with palpation, normal range of motion of the lower extremities bilaterally. EXTREMITIES: No clubbing, cyanosis, or edema. NEUROLOGIC: Alert and oriented x 3, normal recent and remote memory. Strength 5/5 in bilateral lower extremities, sensory was intact to light touch in bilateral lower extremities except for diffuse decrease in sensation involving both of his legs and feet, reflexes are trace and symmetric in the lower extremities bilaterally, negative straight leg raising bilaterally, forward stooped antalgic gait. IMAGING: Reviewed. I reviewed a recent lumbar MRI scan. On that study, he has instrumented fusion which extends from L3-S1 is again visualized. Importantly at L1-L2, he has developed moderately severe lumbar spinal stenosis, which is increased when compared to previous images. 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 PLAN: I believe the stenosis at L1-L2 is contributing to his overall pain. The problem has been a progressive one. My recommendation at this point is that he has failed conservative measures including epidural steroid injections and physical therapy, is to recommend a bilateral lumbar microdecompression at this level. I spoke with him about the surgery and the risks involved. I explained the rationale for surgery. He understands. He would like to go ahead. We will make the arrangements. RAMIREZ ALCANTAR MD DR: LUCERO/edmundo JOB#: [id number] / [id number]
== END | disposition home or self-care (01) ==
LOC: SURGPAT 13:19
PROVIDERS: ATTEND Neurological Surgery
DX: Z01.818 Encounter for other preprocedural examination (principal); M48.062 Spinal stenosis, lumbar region with neurogenic claudication; I13.0 Hypertensive heart and chronic kidney disease with heart failure and stage 1 through stage 4 chronic kidney disease, or unspecified chronic kidney disease; I50.9 Heart failure, unspecified; N18.3 Chronic kidney disease, stage 3 (moderate); E78.5 Hyperlipidemia, unspecified; E78.00 Pure hypercholesterolemia, unspecified; K21.9 Gastro-esophageal reflux disease without esophagitis; Z79.01 Long term (current) use of anticoagulants; Z96.651 Presence of right artificial knee joint; Z96.641 Presence of right artificial hip joint; Z95.5 Presence of coronary angioplasty implant and graft; Z87.891 Personal history of nicotine dependence; Z68.35 Body mass index [BMI] 35.0-35.9, adult
CPT/HCPCS: 36415; 80053; 85025; 87641

== ENCOUNTER → 2018-01-22 | Day surgery (SDC) | payer MEDICARE ==
[~2018-01-22] VITALS: Ht 165.1 cm; Wt 81.2 kg
[~2018-01-22] MED LIST changes: +ACETAMINOPHEN 325 MG TABLET. PO PRN; +BACITRACIN 50,000 UNIT in IV NORMAL SALINE 1000ML BAG 1,000 ML IRR ONE; +BUPIVAC MPF-EPI 0.5%-1:200000 30 ML VIAL. INJ ONE; +DEXAMETHASONE SOD PHOS 20 MG/5 ML VIAL. ONE; +GELATIN SPONGE SIZE 100. ONE; +GLYCOPYRROLATE 1 MG/5 ML VIAL. ONE; +IV RINGERS,LACTATED 1000ML 1,000 ML IV SCH; +KETOROLAC 60 MG/2 ML INJ FOR OR. ONE; +LIDOCAINE 1% PF 2 ML VIAL. ID PRN; +LIDOCAINE 2% PF Vial for OR 5 ML VIAL. ONE; +MORPHINE SULFATE 2 MG/ML VIAL. IV PRN; +NEOSTIGMINE METHYLSULFATE 5 MG/5 ML SYRINGE. ONE; +ONDANSETRON PF 4 MG/2 ML VIAL. IV PRN; +PHENYLEPHRINE 10 MG/ML VIAL. ONE; +PROCHLORPERAZINE 10 MG/2 ML VIAL. IV PRN; +PROPOFOL 20 ML IV ONE; +PROPOFOL 50 ML IV ONE; +REMIFENTANIL 2 MG VIAL. IV ONE; +ROCURONIUM 50 MG/5 ML VIAL. ONE; +SUCCINYLCHOLINE 200 MG/10 ML VIAL. ONE; +THROMBIN TOPICAL 20,000 UNIT SPRAY.SYRN KIT TP ONE; +ceFAZolin 2GM PREMIX 2 GM/50 ML BAG IV ONE; +ePHEDrine PF IN SALINE 50 MG/5 ML DISP.SYRIN IV ONE; +fentaNYL PF VIAL 100 MCG/2 ML VIAL IV PRN; +fentaNYL PF VIAL 100 MCG/2 ML VIAL ONE
--- NOTE | 2018-01-22 07:02 | PREOP HP ---
DATE OF SERVICE: 01/22/2018 HISTORY OF PRESENT ILLNESS: The patient is a pleasant 77-year-old who has developed increasing lower back pain, which is more severe on the right side with right posterior thigh and leg weakness and a left posterior thigh pain. The problems have been ongoing for years with regard to pain in his lower back, but has become much worse recently. He says he now has a constant 4/10 pain. Lifting and walking increases his pain. If he walks for any distance, he has difficulty and must sit. He takes Aleve and gabapentin. He was in physical therapy last summer as well as had epidural steroid injections recently, which have not given him lasting relief. PAST MEDICAL HISTORY: Arthritis, heart disease, hypertension, MRSA infection, ulcers, headaches, peripheral neuropathy. PAST SURGICAL HISTORY: Previous lumbar surgeries, ACDF, CABG x 6 in 2000, sinus surgery in 2010. FAMILY HISTORY: The patient has a family history of cancer, heart disease and hypertension. SOCIAL HISTORY: The patient is retired and . He has a past history of smoking more than 40 years ago. He would smoke 1 pack per day. He denies alcohol consumption. ALLERGIES: HE HAS ALLERGIES TO DILAUDID. CURRENT MEDICATIONS: Iron, centrum silver, gabapentin, Ambien, clopidogrel, tamsulosin, amlodipine, fluoxetine, omeprazole, isosorbide, vitamin B6, atorvastatin and Aleve. REVIEW OF SYSTEMS: A 12-point review of systems was obtained and is noncontributory except for that mentioned above. PHYSICAL EXAMINATION: NEUROSURGERY EXAMINATION: GENERAL APPEARANCE: Alert, pleasant, in no acute distress. HEAD: Normocephalic, atraumatic. SKIN: Warm and dry. Well-healed lumbar incision. MUSCULOSKELETAL: Lumbar paraspinal muscle bulk is normal, restricted range of motion of lumbar spine, [id number] tenderness of lower lumbar spine with palpation, normal range of motion of the lower extremities bilaterally. EXTREMITIES: No clubbing, cyanosis, or edema. NEUROLOGIC: Alert and oriented x 3, normal recent and remote memory. Strength 5/5 in bilateral lower extremities, sensory was intact to light touch in bilateral lower extremities except for diffuse decrease in sensation involving both of his legs and feet, reflexes are trace and symmetric in the lower extremities bilaterally, negative straight leg raising bilaterally, forward stooped antalgic gait. IMAGING: I reviewed a recent lumbar MRI scan. On that study, he has instrumented fusion which extends from L3-S1 which is again visualized. Importantly at L1-L2, he has developed moderately severe lumbar spinal stenosis, which is increased when compared to previous images. ASSESSMENT/PLAN: I believe the stenosis at L1-L2 is contributing to his overall pain. The problem has been a progressive one. My recommendation at this point is that he has failed conservative measures including epidural steroid injections and physical therapy, is a bilateral lumbar microdecompression at this level. I spoke with him about the surgery and the risks involved. I explained the rationale for surgery. He understands. He would like to go ahead. We will make the arrangements. JEANETH ALCANTAR MD DR: LUCERO/edmundo JOB#: [id number] / [id number] TAURUS
--- NOTE | 2018-01-22 11:53 | DISCH ---
DISCHARGE INSTRUCTIONS Condition on Discharge Condition on Discharge: Stable Activity After Discharge Activity Instructions for Disc: Activity as tolerated, Avoid exertion Other activity instructions: no driving for a week Bathing Instructions: Shower-keep dressing dry Lifting Instructions after Dis: No heavy lifting, No pulling or pushing, Do not lift >10 pounds Exercise Instruction after Dis: Progress as tolerated Driving Instructions after Dis: Other, see below Diet after Discharge Diet after Discharge: Cardiac Wound Incision Care Wound/Incision Care: Ice to area for comfort Other wound/incision instructi: may remove dressing in 48 hrs if dry then may shower, no soaking Checks after Discharge Checks after discharge: Check blood press - daily, Check your Temp as needed, Weigh Yourself Daily Contacting the DRJulieth after DC Call your doctor for: Concerns you may have Follow-Up Follow up with: Dr. Alcantar's nurse in 2 weeks [phone] JEANETH ALCANTAR MD Jan 22, 2018 11:53
[2018-01-22] MEDS: fentaNYL PF VIAL 100 MCG/2 ML VIAL IV PRN ×2 (12:07→13:10)
[2018-01-22 13:14] VITALS: BP 141/67
--- NOTE | 2018-01-27 09:13 | PATHOLOGY ---
[facility] Accession Number: [id number] . 01 Material submitted: . LUMBAR DECOMPRESSION AND DISC . 01 Clinical history: . Lumbar stenosis with neurogenic claudication . 02 Diagnosis: Segments of fibrocartilaginous, fibroadipose, and skeletal muscle tissue and bone, lumbar decompression and disc: - Degenerative changes of fibrocartilaginous tissue. (JPM:elpidio; 01/26/2018) QMS/01/26/2018 . 02 Comment: There is no evidence of an acute inflammatory process or malignancy. . 02 Electronically signed: . William Robledo MD, Pathologist NPI- [id number] . 01 Gross description: . The specimen is received in formalin, labeled "Mann Puri and lumbar decompression and disc", are multiple irregular fragments of jimenez rubbery gritty tissue admixed with bone measuring 3.2 x 2.7 x 1.0 cm in aggregate. [employer] sections are submitted in A1 after decalcification. ([facility]; 01/22/2018) SHS/SHS . 02 Pathologist provided ICD-10: M51.36 . 02 CPT . 144298, [id number] Performed at: [facility] [address], [place] [id number] MD Raheem Etienne MD Phone: [phone] Performed at: 02 [facility] [address], [place] [id number] MD William Robledo MD Phone: [phone]
--- NOTE | 2018-02-01 17:02 | OP ---
DATE OF SURGERY: 01/22/2018 PREOPERATIVE DIAGNOSIS: Lumbar spinal stenosis, L1-L2. POSTOPERATIVE DIAGNOSIS: Lumbar spinal stenosis, L1-L2. OPERATION PERFORMED: Bilateral hemilaminotomies L1-L2 with decompression of dura and nerve root along with lumbar microdiskectomy, left L1-L2. The operation was done with EMG monitoring, fluoroscopy, microscopic dissection. SURGEON: Ramirez Alcantar M.D. DISPENSING OPTICIAN: RAO Rene assisted with the surgery. She assisted with the decompression as well as the closure. OPERATIVE INDICATIONS: The patient is a very pleasant 77-year-old man who has undergone a number of surgeries on his spine in the past. He has an instrumented fusion, which extends from L3 through the sacrum. Recently, he has noted increasing lower back pain along with pains in his lower extremities and feelings of weakness in his legs, combined with unsteadiness. On imaging studies, he had the above-mentioned findings with stenosis at L1-L2, which appears to have progressed when compared to previous images and I recommended bilateral lumbar micro hemilaminotomies. I spoke with him about the surgery and the risks. He understood and he wished to go ahead. DESCRIPTION OF PROCEDURE: Following general endotracheal anesthesia, the patient was positioned prone on the Matthew table. His lumbar region was prepped and draped in standard fashion. TYRELL hose and AV impulse boots were applied for DVT prophylaxis. Microscope was draped. Fluoroscopy was draped and brought into the field. Monitoring was established. Ancef 2 grams was given less than 1 hour prior to the initiation of the surgery. Using fluoroscopic guidance, an incision was made over the L1-L2 interspace that was taken down through skin and subcutaneous tissue, reflected the paraspinal muscles and placed the [place] micro disc retractor. I began on the right side and burred down a very generous hemilaminotomy. I trimmed away thickened ligamentum flavum. I gently reflected the dura and nerve root medially and palpated the disc, which was flat, no discectomy was warranted. I did perform a generous partial foraminotomy and fully decompressed the right side. I then went to the left side in a similar fashion, created an exposure. I burred down a very generous hemilaminotomy again using the microscope with microscopic technique. Again, I performed a generous partial foraminotomy. When I retracted the dura and nerve root medially, there was significant disc bulging and I incised the annulus and ligament and performed a discectomy with pituitary rongeurs. A portion of the disc was calcified and portions were softer and as I worked, I was able to obtain an excellent decompression of the entire region. Following this, I irrigated copiously with antibiotic solution. I did use small amounts of bone wax for any bone bleeding as well as the bipolar cautery where necessary. I irrigated and closed the wound in layers with absorbable suture after obtaining perfect hemostasis. The skin was closed with 4-0 subcuticular stitch. The operation went very well and the patient was awakened uneventfully. I was quite pleased with the surgery. RAMIREZ ALCANTAR MD DR: LUCERO/edmundo JOB#: [id number] / [id number] TAURUS
== END | disposition home or self-care (01) ==
LOC: SURG 06:56
PROVIDERS: ATTEND Neurological Surgery
DX: M48.061 Spinal stenosis, lumbar region without neurogenic claudication (principal); M51.36 Other intervertebral disc degeneration, lumbar region; I11.9 Hypertensive heart disease without heart failure; Z86.14 Personal history of Methicillin resistant Staphylococcus aureus infection; G62.9 Polyneuropathy, unspecified; Z98.1 Arthrodesis status; Z95.1 Presence of aortocoronary bypass graft; M19.90 Unspecified osteoarthritis, unspecified site; Z98.890 Other specified postprocedural states; Z82.49 Family history of ischemic heart disease and other diseases of the circulatory system; Z88.5 Allergy status to narcotic agent; Z87.891 Personal history of nicotine dependence; Z79.899 Other long term (current) drug therapy
CPT/HCPCS: 63030; 88304; 88311; 97162; 97530; G8978; G8979; G8980; J0330; J0690; J1100; J1885; J2001; J2704; J2710; J3010; J3490; J7030; 76000; A7015; J2270

== ENCOUNTER → 2018-08-04 | Outpatient (CLI) | payer MEDICARE ==
[2018-01-22 13:14] VITALS: BP 141/67
[~2018-08-04] MED LIST changes: -ACETAMINOPHEN 325 MG TABLET. PO PRN; +AMLO5TAB10 PO; -AMLO5TAB2 PO; -BACITRACIN 50,000 UNIT in IV NORMAL SALINE 1000ML BAG 1,000 ML IRR ONE; -BUPIVAC MPF-EPI 0.5%-1:200000 30 ML VIAL. INJ ONE; +CYAN-25 PO; -CYAN10005 PO; -DEXAMETHASONE SOD PHOS 20 MG/5 ML VIAL. ONE; -GABA600T2 PO; +GABA600T7 PO; -GELATIN SPONGE SIZE 100. ONE; -GLYCOPYRROLATE 1 MG/5 ML VIAL. ONE; -HYDR-2762 PO; +HYDR-2765 PO; -HYDR12.53 PO; +HYDR12.575 PO; -IV RINGERS,LACTATED 1000ML 1,000 ML IV SCH; -KETOROLAC 60 MG/2 ML INJ FOR OR. ONE; -LIDOCAINE 1% PF 2 ML VIAL. ID PRN; -LIDOCAINE 2% PF Vial for OR 5 ML VIAL. ONE; -MORPHINE SULFATE 2 MG/ML VIAL. IV PRN; -NEOSTIGMINE METHYLSULFATE 5 MG/5 ML SYRINGE. ONE; -ONDANSETRON PF 4 MG/2 ML VIAL. IV PRN; -PHENYLEPHRINE 10 MG/ML VIAL. ONE; -PROCHLORPERAZINE 10 MG/2 ML VIAL. IV PRN; -PROPOFOL 20 ML IV ONE; -PROPOFOL 50 ML IV ONE; -REMIFENTANIL 2 MG VIAL. IV ONE; -ROCURONIUM 50 MG/5 ML VIAL. ONE; -SUCCINYLCHOLINE 200 MG/10 ML VIAL. ONE; -THROMBIN TOPICAL 20,000 UNIT SPRAY.SYRN KIT TP ONE; -ceFAZolin 2GM PREMIX 2 GM/50 ML BAG IV ONE; -ePHEDrine PF IN SALINE 50 MG/5 ML DISP.SYRIN IV ONE; -fentaNYL PF VIAL 100 MCG/2 ML VIAL IV PRN; -fentaNYL PF VIAL 100 MCG/2 ML VIAL ONE
--- NOTE | 2018-08-04 11:23 | RAD ---
Left clavicle, 2 views, 08/04/2018: HISTORY: Fall, pain The bony structures are demineralized. There is a nondisplaced fracture of the distal clavicle. Left shoulder, 3 views, 08/04/2018: No additional fracture or dislocation is identified. There is mild degenerative change at the glenohumeral articulation. A surgical plate and screws is evident in the lower cervical spine. IMPRESSION: 1. Demineralization. 2. Mild degenerative change at the left shoulder. 3. Nondisplaced distal left clavicular fracture. Electronically signed by: Agus Estrada MD (08/04/2018 11:20 AM) [facility]
--- NOTE | 2018-08-04 11:23 | RAD ---
Left clavicle, 2 views, 08/04/2018: HISTORY: Fall, pain The bony structures are demineralized. There is a nondisplaced fracture of the distal clavicle. Left shoulder, 3 views, 08/04/2018: No additional fracture or dislocation is identified. There is mild degenerative change at the glenohumeral articulation. A surgical plate and screws is evident in the lower cervical spine. IMPRESSION: 1. Demineralization. 2. Mild degenerative change at the left shoulder. 3. Nondisplaced distal left clavicular fracture. Electronically signed by: Agus Estrada MD (08/04/2018 11:20 AM) [facility]
== END | disposition home or self-care (01) ==
LOC: RAD 09:53
PROVIDERS: ATTEND Family Medicine
DX: S42.035A Nondisplaced fracture of lateral end of left clavicle, initial encounter for closed fracture (principal); M19.012 Primary osteoarthritis, left shoulder; W06.XXXA Fall from bed, initial encounter; Y93.89 Activity, other specified; Y92.89 Other specified places as the place of occurrence of the external cause; Y99.8 Other external cause status
CPT/HCPCS: 73000; 73030

== ENCOUNTER 2019-07-21 06:38 | Inpatient (IN) | payer MEDICARE ==
[~2019-07-21] VITALS: Ht 172.7 cm; Wt 85.3 kg
[2019-07-21] VITALS (8 sets, daily range): BP systolic 113–162; BP diastolic 69–87
[~2019-07-21 06:38] MED LIST changes: +OMEP40CA45 PO; -OMEP40CA5 PO; +POTA20TA4 PO; -POTA20TA82 PO; -PYRI100T PO; +PYRI100T9 PO
[2019-07-21] MEDS ORDERED: IPRATRPIUM/ALBUTEROL 0.5/2.5MG 3 ML NEBU. NEB ONE (07:00)
[2019-07-21] MEDS ORDERED: ASPIRIN CHEWABLE 81 MG TABLET. PO ONE (07:00)
[2019-07-21 07:30] LABS: BASO # 0.1 x10^3/uL (0.0-0.2); BASO % 1 % (0-3); EOS # 0.2 x10^3/uL (0.0-0.7); EOS % 2 % (0-3); HEMATOCRIT 35.3 % (39.0-53.0); HEMOGLOBIN 11.4 g/dL (13.0-17.5); LYMPH # 1.1 x10^3/uL (1.0-4.8); LYMPH % 14 % (24-48); MEAN CORPUSCULAR HEMOGLOBIN 28 pg (25-35); MEAN CORPUSCULAR HGB CONC 32 g/dL (31-37); MEAN CORPUSCULAR VOLUME 85 fL (79-100); MONO # 0.6 x10^3/uL (0.0-1.1); MONO % 8 % (0-9); NEUT # 5.9 x10^3/uL (1.8-7.7); NEUT % 75 % (31-73); PLATELET COUNT 203 x10^3/uL (140-400); RED BLOOD COUNT 4.15 x10^6/uL (4.30-5.70); RED CELL DISTRIBUTION WIDTH 14.5 % (11.5-14.5); WHITE BLOOD COUNT 7.9 x10^3/uL (4.0-11.0)
--- NOTE | 2019-07-21 07:36 | RAD ---
EXAM: PORTABLE CHEST 1V INDICATION: Shortness of breath. TECHNIQUE: Single AP view COMPARISON: 09/15/2017 FINDINGS: ACDF surgical changes in the lower cervical spine and post CABG surgical changes are redemonstrated. Heart size is borderline enlarged The great vessels appear unremarkable. There is no hilar or mediastinal mass. Lungs show interval decrease in volume with ill-defined opacities in the peripheral inferior lungs. Blunting of right costophrenic angle is newly present, possibly reflecting small pleural effusion. There are no significant osseous abnormalities. IMPRESSION: Findings suspicious for developing CHF. Electronically signed by: Paul Valerio MD (07/21/2019 7:33 AM) [facility]
[2019-07-21 07:37] LABS: CALCIUM 9.4 mg/dL (8.5-10.1); CREATININE 1.9 mg/dL (0.7-1.3); GFR 34.3; POTASSIUM 4.6 mmol/L (3.5-5.1)
[2019-07-21 07:41] LABS: BASE EXCESS ABG 1 mmol/L (-3-3); HCO3 ABG 26 mmol/L (21-28); PCO2 ABG 44 mmHg (35-46); PO2 ABG 60 mmHg (65-108); SAT O2 ABG 90 % (92-99)
[2019-07-21 07:43] LABS: FIO2 ABG 32
[2019-07-21 07:43] LABS: ALBUMIN 3.8 g/dL (3.4-5.0); ALBUMIN/GLOBULIN RATIO 1.4 (1.0-1.7); MAGNESIUM 2.5 mg/dL (1.8-2.4); TOTAL BILIRUBIN 0.6 mg/dL (0.2-1.0); TOTAL PROTEIN 6.5 g/dL (6.4-8.2)
--- NOTE | 2019-07-21 07:44 | PHYS DOC ---
Past Medical History Past Medical History: CAD, Hypertension, Renal Disease, Other Additional Past Medical Histor: peripheral neuropathy, meningitis, sleep apnea,urinary retention Past Surgical History: Angioplasty, Coronary Bypass Surgery, Hip Replacement, Knee Replacement, Other Additional Past Surgical Histo: several back surgeries,HEMORRHOID,SINUS,NECK,CARDIAC STENTS Smoking Status: Former Smoker Alcohol Use: None Drug Use: None Adult General Chief Complaint Chief Complaint: SHORTNESS OF BREATH [facility] HPI Patient is a 78 year old male with history of hypertension, dyslipidemia, coronary artery disease status post CABG, CHF on nightly home oxygen, peripheral vascular disease, meningitis, sleep apnea who presents with complaint of shortness of breath. Patient complaining of intermittent episodes of exertional shortness of breath and chest tightness for the last 2 weeks that usually last about 20 minutes and repeated several times a day and gradually getting worse. Patient states the pain is in bilateral chest and radiated to bilateral shoulder and rated his pain one or 2/10. Patient complaining of increasing dry cough and generalized weakness without fever, nausea and vomiting, diarrhea and constipation, urinary symptom. Patient had to increase his home oxygen from 2 L to 3 L and had O2 sats of 86% on 3 L of oxygen at arrival to ER. Review of Systems Review of Systems Constitutional: Denies fever or chills [] Eyes: Denies change in visual acuity, redness, or eye pain [] HENT: Denies nasal congestion or sore throat [] Respiratory: Reports cough and shortness of breath Cardiovascular: No additional information not addressed in HPI [] GI: Denies abdominal pain, nausea, vomiting, bloody stools or diarrhea [] : Denies dysuria or hematuria [] Musculoskeletal: Denies back pain or joint pain [] Integument: Denies rash or skin lesions [] Neurologic: Denies headache, focal weakness or sensory changes [] Endocrine: Denies polyuria or polydipsia [] All other systems were reviewed and found to be within normal limits, except as documented in this note. Current Medications Current Medications Current Medications Medications (Trade) Dose Ordered Sig/Holden Start Time Stop Time Status Last Admin Dose Admin Albuterol/ Ipratropium (Duoneb) 3 ml 1X ONCE 07/21/19 07:00 07/21/19 07:01 DC 07/21/19 07:26 3 ML Aspirin (Children'S Aspirin) 324 mg 1X ONCE 07/21/19 07:00 07/21/19 07:01 DC 07/21/19 08:23 324 MG Furosemide (Lasix) 20 mg 1X ONCE 07/21/19 08:15 07/21/19 08:18 DC 07/21/19 08:24 20 MG Allergies Allergies Allergies Coded Allergies Type Severity Reaction Last Updated Verified hydromorphone Adverse Reaction Mild combative 01/22/18 Yes Physical Exam Physical Exam Constitutional: Well developed, well nourished, mild distress, non-toxic appearance. [] HENT: Normocephalic, atraumatic, moist oral mucosa. Eyes: PERRLA, EOMI, conjunctiva normal, no discharge. [] Neck: Normal range of motion, no tenderness, supple, no stridor. [] Cardiovascular:Heart rate regular rhythm, heart murmur is present.[] Lungs & Thorax: No respiratory distress, bibasilar rales with expiratory wheezing . Abdomen: Bowel sounds normal, soft, no tenderness, no masses, no pulsatile masses. [] Skin: Warm, dry, no erythema, no rash. [] Back: No tenderness, no CVA tenderness. [] Extremities: No tenderness, no cyanosis, no clubbing, ROM intact, no edema. [] Neurologic: Alert and oriented X 3, no focal deficits noted. [] Psychologic: Affect normal, judgement normal, mood normal. [] Current Patient Data Vital Signs Vital Signs Date Time Temp Pulse Resp B/P (MAP) Pulse Ox O2 Delivery O2 Flow Rate FiO2 07/21/19 07:47 64 18 168/77 (107) 93 Nasal Cannula 3.0 07/21/19 06:40 97.7 97.7 Lab Values Laboratory Tests Test 07/21/19 06:40 07/21/19 07:42 07/21/19 07:59 White Blood Count 7.9 x10^3/uL (4.0-11.0) Red Blood Count 4.15 x10^6/uL (4.30-5.70) L Hemoglobin 11.4 g/dL (13.0-17.5) L Hematocrit 35.3 % (39.0-53.0) L Mean Corpuscular Volume 85 fL (79-100) Mean Corpuscular Hemoglobin 28 pg (25-35) Mean Corpuscular Hemoglobin Concent 32 g/dL (31-37) Red Cell Distribution Width 14.5 % (11.5-14.5) Platelet Count 203 x10^3/uL (140-400) Neutrophils (%) (Auto) 75 % (31-73) H Lymphocytes (%) (Auto) 14 % (24-48) L Monocytes (%) (Auto) 8 % (0-9) Eosinophils (%) (Auto) 2 % (0-3) Basophils (%) (Auto) 1 % (0-3) Neutrophils # (Auto) 5.9 x10^3/uL (1.8-7.7) Lymphocytes # (Auto) 1.1 x10^3/uL (1.0-4.8) Monocytes # (Auto) 0.6 x10^3/uL (0.0-1.1) Eosinophils # (Auto) 0.2 x10^3/uL (0.0-0.7) Basophils # (Auto) 0.1 x10^3/uL (0.0-0.2) Prothrombin Time 12.8 SEC (11.7-14.0) Prothrombin Time INR 1.0 (0.8-1.1) D-Dimer (Tracy) 0.82 ug/mlFEU (0.00-0.50) H Sodium Level 144 mmol/L (136-145) Potassium Level 4.6 mmol/L (3.5-5.1) Chloride Level 105 mmol/L (98-107) Carbon Dioxide Level 30 mmol/L (21-32) Anion Gap 9 (6-14) Blood Urea Nitrogen 34 mg/dL (8-26) H Creatinine 1.9 mg/dL (0.7-1.3) H Estimated GFR (Cockcroft-Gault) 34.3 BUN/Creatinine Ratio 18 (6-20) Glucose Level 125 mg/dL (70-99) H Lactic Acid Level 0.8 mmol/L (0.4-2.0) Calcium Level 9.4 mg/dL (8.5-10.1) Magnesium Level 2.5 mg/dL (1.8-2.4) H Total Bilirubin 0.6 mg/dL (0.2-1.0) Aspartate Amino Transferase (AST) 25 U/L (15-37) Alanine Aminotransferase (ALT) 19 U/L (16-63) Alkaline Phosphatase 79 U/L (46-116) Creatine Kinase 79 U/L (39-308) Troponin I Quantitative 0.201 ng/mL (0.000-0.055) FW-Ivv-F-Type Natriuretic Peptide 3849 pg/mL (0-449) H Total Protein 6.5 g/dL (6.4-8.2) Albumin 3.8 g/dL (3.4-5.0) Albumin/Globulin Ratio 1.4 (1.0-1.7) Triglycerides Level 90 mg/dL (0-150) Cholesterol Level 152 mg/dL (0-200) LDL Cholesterol, Calculated 72 mg/dL (0-100) VLDL Cholesterol, Calculated 18 mg/dL (0-40) Non-HDL Cholesterol Calculated 90 mg/dL (0-129) HDL Cholesterol 62 mg/dL (40-60) H Cholesterol/HDL Ratio 2.5 Lipase 185 U/L (73-393) O2 Saturation 90 % (92-99) L Arterial Blood pH 7.39 (7.35-7.45) Arterial Blood pCO2 at Patient Temp 44 mmHg (35-46) Arterial Blood pO2 at Patient Temp 60 mmHg (65-108) L Arterial Blood HCO3 26 mmol/L (21-28) Arterial Blood Base Excess 1 mmol/L (-3-3) FiO2 32 Influenza Type A Antigen Positive (NEGATIVE) Influenza Type B Antigen Positive (NEGATIVE) Laboratory Tests 07/21/19 06:40 Laboratory Tests 07/21/19 06:40 EKG EKG EKG interpreted by me. EKG at 0638 showed normal sinus rhythm at rate of 64, normal ND and QT intervals, no acute ST and T-wave elevation. Radiology/Procedures Radiology/Procedures [facility] [address] [place], [place] [id number] IMAGING REPORT Signed PATIENT: STALIN SUAREZ ACCOUNT: [id number] : 1940 LOCATION: ER AGE: 78 SEX: M EXAM STATUS: REG ER ORD. PHYSICIAN: AJ FRANKLIN MD REASON: shortness of breath PROCEDURE: PORTABLE CHEST 1V EXAM: PORTABLE CHEST 1V INDICATION: Shortness of breath. TECHNIQUE: Single AP view COMPARISON: 09/15/2017 FINDINGS: ACDF surgical changes in the lower cervical spine and post CABG surgical changes are redemonstrated. Heart size is borderline enlarged The great vessels appear unremarkable. There is no hilar or mediastinal mass. Lungs show interval decrease in volume with ill-defined opacities in the peripheral inferior lungs. Blunting of right costophrenic angle is newly present, possibly reflecting small pleural effusion. There are no significant osseous abnormalities. IMPRESSION: Findings suspicious for developing CHF. Electronically signed by: Анна Valerio MD (07/21/2019 7:33 AM) [facility] DICTATED and SIGNED BY: АННА VALERIO MD DATE: 07/21/1913 Course & Med Decision Making Course & Med Decision Making Pertinent Labs and Imaging studies reviewed. (See chart for details) Evaluation of patient in ER showed 78-year-old male patient with complaining of generalized weakness and intermittent shortness of breath for 2 weeks that getting worse for the last few days. Patient had O2 sats of 86% on 2 L of oxygen at arrival to ER and improved with 4 L of oxygen. Patient did not have fever or hypotension old tachycardia. Patient had positive flu a and flu B and on-call infectious disease doctor Dr Gaytan consulted at 0850 and recommended respiratory viral panel and starting Tamiflu.Patient requiring admission for further evaluation and treatment. Discussed with Dr. Murphy who is in agreement with admission. Discussed findings and plan with patient and family, who acknowledge understanding and agreement. Dragon Disclaimer Dragon Disclaimer This electronic medical record was generated, in whole or in part, using a voice recognition dictation system. Departure Departure Impression: Primary Impression: Acute exacerbation of CHF (congestive heart failure) Additional Impressions: Renal insufficiency Elevated troponin Chronic anemia Hypoxia Dyspnea Influenza A Influenza B Disposition: ADMITTED INPATIENT (at 0 835) Admitting Physician: Jordan Murphy (accepted admission at 0 834) Condition: GUARDED Referrals: LAVONNE MATHEW MD (PCP) Problem Qualifiers Primary Impression: Acute exacerbation of CHF (congestive heart failure) Heart failure type: unspecified Qualified Codes: I50.9 - Heart failure, unspecified Additional Impressions: Dyspnea Dyspnea type: unspecified Qualified Codes: R06.00 - Dyspnea, unspecified AJ FRANKLIN MD Jul 21, 2019 07:44
[2019-07-21 07:46] LABS: PROTHROMBIN TIME PATIENT 12.8 SEC (11.7-14.0)
--- NOTE | 2019-07-21 08:01 | EKG ---
[facility] [address] [place] [address] Test Date: 2019-07-21 Test Time: 06:46:05 Pat Name: STALIN SUAREZ Department: Room: Gender: M Scaffold Worker: : 1940 Requested By: AJ FRANKLIN Order Number: [id number] Reading MD: Measurements Intervals [place] Rate: 64 P: 38 WA: 166 QRS: 26 QRSD: 82 T: 38 QT: 408 QTc: 425 Interpretive Statements SINUS RHYTHM NO SPECIFIC ECG ABNORMALITIES RI6.01 No previous ECG available for comparison
[2019-07-21] MEDS ORDERED: FUROSEMIDE 20 MG/2 ML VIAL. IVP ONE (08:15)
[2019-07-21 08:39] LABS: INFLUENZA A PATIENT POSITIVE (NEGATIVE)
[2019-07-21 08:40] LABS: INFLUENZA B PATIENT POSITIVE (NEGATIVE)
[2019-07-21] MEDS ORDERED: OSELTAMIVIR 75 MG CAPSULE PO SCH (09:00)
--- NOTE | 2019-07-21 10:27 | PDOC2 ---
CARDIAC CONSULT DATE OF CONSULT Date of Consult DATE: 07/21/19 TIME: 10:13 REASON FOR CONSULT Reason for Consult: CHF REFERRING PHYSICIAN Referring Physician: Pepe SOURCE Source: Chart review, Patient HISTORY OF PRESENT ILLNESS HISTORY OF PRESENT ILLNESS This is a pleasant 78 yo male admitted for complains of chest pain and SOA. Reports that he has been having some neck and jaw discomfort in the last month and was told that this maybe his neck as he has cervical stenosis and had fusion in the past. The discomfort is more to the right and is actually tender to right neck region along the cervical lymph node chain. No difficulty or pain with swallowing. In addition he also has intermittent shoulder discomfort. No coughing, fever or chills. Upon further check he was noted with flu A and B but has not been having cold symptoms and no mylagia. He does feel tired. Although no recent falls or any injury. He has been feeling midchest tightness in the last 2 weeks as well as exertional dyspnea. To add also with indigestion feeling. Denies any palpitations. Reports that at times his chest tightness last for 30 minutes before getting better. He does take his cardiac meds as he has hx of CAD and CBAG and stenting in the past. He does not take anymore ranxea. [facility] and has seen Dr. Gonzáles about 2-3 months ago. He denies any recent MPI but his told me that he has had stress test last yr. He could not understand where he got the flu. Presently his SOA is better which is the primary reason he came in. No leg edema. PAST MEDICAL HISTORY Past Medical History Cardiovascular: CAD, CHF, HTN, DE, HLP Pulmonary: Bronchitis, respiratory failure with previously Intubated, COPD? CENTRAL NERVOUS SYSTEM: Dementia, Peripheral neuropathy, meningitis GI: GERD MSK: OA, low back pain, cervical stenosis Rheumatologic: No pertinent hx Infectious disease: MRSA ENT: sinusitis, cataract Renal/: Chronic renal insuff, BPH Endocrine: No pertinent hx Dermatology: No pertinent hx PAST SURGICAL HISTORY Past Surgical History: CABG (2000), Cataract Removal, Total hip replacement, Total knee replacement, Other (PCI stent placement; oral and sinus surgery; low back fusion) FAMILY HISTORY Family History noncontributory SOCIAL HISTORY Smoke: Quit ALCOHOL: none Drugs: None Lives: with Family CURRENT MEDICATIONS CURRENT MEDICATIONS Current Medications Medications (Trade) Dose Ordered Sig/Holden Route PRN Reason Start Time Stop Time Status Last Admin Dose Admin Aspirin (Children'S Aspirin) 324 mg 1X ONCE PO 07/21/19 07:00 07/21/19 07:01 DC 07/21/19 08:23 Albuterol/ Ipratropium (Duoneb) 3 ml 1X ONCE NEB 07/21/19 07:00 07/21/19 07:01 DC 07/21/19 07:26 Furosemide (Lasix) 20 mg 1X ONCE IVP 07/21/19 08:15 07/21/19 08:18 DC 07/21/19 08:24 ALLERGIES ALLERGIES: Coded Allergies: hydromorphone (Verified Adverse Reaction, Mild, combative, 01/22/18) ROS Review of System 14 point ROS evlaluated with pertinent positives noted per HPI PHYSICAL EXAM General: Alert, Oriented X3, Cooperative, No acute distress HEENT: Atraumatic, Mucous membr. moist/pink Lungs: Other (basilar crackles with faint wheeze through out. ) Heart: Regular rate (SR), Normal S1, Normal S2, Other (3/6 systolic murmur to JORGE LUIS border) Abdomen: Soft, No tenderness Extremities: No cyanosis, No edema Skin: No breakdown, No significant lesion Neuro: Normal speech, Sensation intact Psych/Mental Status: Mental status NL, Mood NL MUSCULOSKELETAL: Osteoarthritic changes both hands VITALS/I&O VITALS/I&O: Vital Signs Date Time Temp Pulse Resp B/P (MAP) Pulse Ox O2 Delivery O2 Flow Rate FiO2 07/21/19 09:17 68 18 170/78 (108) 94 Nasal Cannula 3.0 07/21/19 06:40 97.7 97.7 LABS Lab: Laboratory Tests Test 07/21/19 06:40 07/21/19 07:42 07/21/19 07:59 White Blood Count 7.9 x10^3/uL (4.0-11.0) Red Blood Count 4.15 x10^6/uL (4.30-5.70) L Hemoglobin 11.4 g/dL (13.0-17.5) L Hematocrit 35.3 % (39.0-53.0) L Mean Corpuscular Volume 85 fL (79-100) Mean Corpuscular Hemoglobin 28 pg (25-35) Mean Corpuscular Hemoglobin Concent 32 g/dL (31-37) Red Cell Distribution Width 14.5 % (11.5-14.5) Platelet Count 203 x10^3/uL (140-400) Neutrophils (%) (Auto) 75 % (31-73) H Lymphocytes (%) (Auto) 14 % (24-48) L Monocytes (%) (Auto) 8 % (0-9) Eosinophils (%) (Auto) 2 % (0-3) Basophils (%) (Auto) 1 % (0-3) Neutrophils # (Auto) 5.9 x10^3/uL (1.8-7.7) Lymphocytes # (Auto) 1.1 x10^3/uL (1.0-4.8) Monocytes # (Auto) 0.6 x10^3/uL (0.0-1.1) Eosinophils # (Auto) 0.2 x10^3/uL (0.0-0.7) Basophils # (Auto) 0.1 x10^3/uL (0.0-0.2) Prothrombin Time 12.8 SEC (11.7-14.0) Prothrombin Time INR 1.0 (0.8-1.1) D-Dimer (Tracy) 0.82 ug/mlFEU (0.00-0.50) H Sodium Level 144 mmol/L (136-145) Potassium Level 4.6 mmol/L (3.5-5.1) Chloride Level 105 mmol/L (98-107) Carbon Dioxide Level 30 mmol/L (21-32) Anion Gap 9 (6-14) Blood Urea Nitrogen 34 mg/dL (8-26) H Creatinine 1.9 mg/dL (0.7-1.3) H Estimated GFR (Cockcroft-Gault) 34.3 BUN/Creatinine Ratio 18 (6-20) Glucose Level 125 mg/dL (70-99) H Lactic Acid Level 0.8 mmol/L (0.4-2.0) Calcium Level 9.4 mg/dL (8.5-10.1) Magnesium Level 2.5 mg/dL (1.8-2.4) H Total Bilirubin 0.6 mg/dL (0.2-1.0) Aspartate Amino Transferase (AST) 25 U/L (15-37) Alanine Aminotransferase (ALT) 19 U/L (16-63) Alkaline Phosphatase 79 U/L (46-116) Creatine Kinase 79 U/L (39-308) Troponin I Quantitative 0.201 ng/mL (0.000-0.055) XA-Gzk-X-Type Natriuretic Peptide 3849 pg/mL (0-449) H Total Protein 6.5 g/dL (6.4-8.2) Albumin 3.8 g/dL (3.4-5.0) Albumin/Globulin Ratio 1.4 (1.0-1.7) Lipase 185 U/L (73-393) O2 Saturation 90 % (92-99) L Arterial Blood pH 7.39 (7.35-7.45) Arterial Blood pCO2 at Patient Temp 44 mmHg (35-46) Arterial Blood pO2 at Patient Temp 60 mmHg (65-108) L Arterial Blood HCO3 26 mmol/L (21-28) Arterial Blood Base Excess 1 mmol/L (-3-3) FiO2 32 Influenza Type A Antigen Positive (NEGATIVE) Influenza Type B Antigen Positive (NEGATIVE) Laboratory Tests 07/21/19 06:40 Laboratory Tests 07/21/19 06:40 ECHOCARDIOGRAM ECHOCARDIOGRAM <Conclusion> There is moderate concentric left ventricular hypertrophy. The left ventricular systolic function is mildly decreased and the ejection fraction is 45%. Transmitral Doppler flow pattern is Grade II-pseudonormal filling dynamics. The right ventricle is mildly dilated. The left atrium is mildly dilated. The right atrium size is normal. The aortic valve is mildly thickened. The mitral valve is mildly thickened. Doppler and Color-flow revealed mild mitral regurgitation. Doppler and Color Flow revealed trace tricuspid regurgitation. The pulmonic valve is not well visualized. Doppler and Color Flow revealed mild pulmonic valvular regurgitation. There is no evidence of significant pericardial effusion. DATE: 09/08/171854 HEART CATH HEART CATH Findings: Coronaries: Left main has about 50% area of stenosis. The LAD is 100% occluded in the midsegment. The circumflex has diffuse 90% disease and the obtuse marginal is 100% occluded no distal circumflex was actually seen and it is a very small vessel. The RCA has an ulcerated plaque in proximal and there is diffuse 40-99% disease below that point to the distal part of the RCA. Saphenous vein graft to the obtuse marginal is 100% occluded. Saphenous vein graft to the LAD is open and normal. Saphenous vein graft to the distal RCA is large and has a proximal 70% stenosis and a tendon 80% stenosis and distal to that there is a rupture plaque with a flap that is occluding about 90% of the graft. Ventriculogram: The left ventricular function is normal with a global ejection fractionestimated to be about 60%. After this was evaluated I decided to proceed with stenting of the graft to the RCA. The patient received a loading dose of Plavix, received a bolus of Aggrastat and started on a drip and also received a bolus of heparin and was started on a drip. A guiding catheter was then utilized to engage the ostium of the saphenous vein graft to the RCA and a guidewire was advanced all the way to the distal part of the graft and into the chenega RCA. Following that a 4.0 mm x 23 mm drug-eluting stent was advanced over the guidewire to the distal lesion with a flap to cover that area and then the stent was deployed high-pressure inflations were done in that area. Another 4.0 mm x 23 mm drug-eluting stent was advanced over the guidewire and placed just proximal to the previous stent with about a 2 mm overlapping. The stent was deployed and multiple high-pressure inflations were then done. Views were then done and then I could see that the graft is now open with excellent flow to the stent work covering all of the lesion areas and the patient was not having any chest pain and in stable condition. ACT's were checked and the sheath was pulled and an Angio-Seal collagen plug was placed after which appeared to be no active bleeding. The patient was transferred to his room in satisfactory condition after tolerating the procedure rather well. Conclusion This patient had significant disease of the graft to the RCA and also has diffuse disease of the chenega coronaries. I stented the graft to the RCA and I would recommend medical treatment for the patient depending on his progression we will then decide what changes need to be made to the medications. I would like to give the patient at least 24 hours of IV anticoagulation with the Aggrastat and heparin. Patient will be started on Ranexa 500 mg by mouth twice a day DATE: 05/26/16 3225 ASSESSMENT/PLAN ASSESSMENT/PLAN 1. FLU A and B 2. Acute on chronic diastolic CHF 3. BARRY vs underlying CKD3: unclear baseline. 4. Elevated troponin: peaked at 0.2. EKG SR without acute changes. underlying ischemia could not be ruled out. 5. CAD: past CABG with stent to graft to RCA in 2016 6. HTN: labile 7. HLP 8. Chest pain: concerning for unstable angina features Recommendations 1. O2 to titrate 2. TTE 3. Tamiflu 4. Lasix therapy. Monitor renal function 5. Restart home norvasc and imdur. Also resume home ASA and plavix. and statin. Hydralazine IV PRN. 6. Will request cardiac records and labs and possible stress test from last yr at the OR. 7. Ultimately he may need a LHC given his symptomatology and significant risk factors after sufficient flu therapy. TAHMINA LINDO APRN Jul 21, 2019 10:27
[2019-07-21 11:23] LABS: CHOLESTEROL/HDL RATIO 2.5
[2019-07-21] MEDS: OSELTAMIVIR 30 MG CAPSULE PO SCH ×2 (12:01→20:46)
[2019-07-21] MEDS ORDERED: hydrALAZINE 20 MG/ML VIAL. IVP PRN (12:45)
--- NOTE | 2019-07-21 12:48 | EKG ---
[facility] [address] [place] [address] Test Date: 2019-07-21 Test Time: 12:42:41 Pat Name: STALIN SUAREZ Department: Room: 108 1 Gender: M Network Program Manager: CAMILLE : 1940 Requested By: TAHMINA LINDO Order Number: [id number] Reading MD: Measurements Intervals [place] Rate: 102 P: [place]: QRS: 40 QRSD: 76 T: 30 QT: 282 QTc: 371 Interpretive Statements IRREGULAR RHYTHM, NO P-WAVE FOUND NO SPECIFIC ECG ABNORMALITIES RI6.02 Compared to ECG 09/15/2017 11:50:07 Sinus rhythm no longer present
[2019-07-21] MEDS: ASPIRIN ENTERIC COATED 81 MG TABLET.DR. PO SCH (13:00)
--- NOTE | 2019-07-21 13:05 | NUR ---
aspirin 81mg nonadministered because patient received 324 mg aspirin today 07/21/19 in the emergency room.
--- NOTE | 2019-07-21 13:12 | CARD ---
MR#: [id number] Date of Study: 07/21/2019 Ordering Physician: TAHMINA LINDO, Referring Physician: TAHMINA LINDO, Tech: Serena Veliz APPROVED REPORT EXAM: Two-dimensional and M-mode echocardiogram with Doppler and color Doppler. Other Information Quality : AverageHR: 117bpm INDICATION Dyspnea Cardiac Disease: CAD Chest Pain Congestive Heart Failure RISK FACTORS Hypertension Hyperlipidemia 2D DIMENSIONS Left Atrium(2D)3.6 (1.6-4.0cm)IVSd1.2 (0.7-1.1cm) Aortic Root(2D)3.1 (2.0-3.7cm)LVDd5.1 (3.9-5.9cm) LVOT Diameter2.2 (1.8-2.4cm)PWd1.2 (0.7-1.1cm) LVDs2.8 (2.5-4.0cm)FS (%) 44.4 % SV93.7 ml Aortic Valve AoV Peak Simon.185.1cm/sAoV VTI32.7cm AO Peak GR.13.7mmHgLVOT VTI 17.95cm AO Mean GR.8mmHg Mitral Valve MV E Peak Gr.108mmHgMV E Mean Gr.2mmHg TDI Lateral E' P. V9.62cm/sMedial E' P. V8.15cm/s Tricuspid Valve TR P. Gatldjkv887en/sRAP [id number] TR Peak Gr.69onQsSSEN25tiAm LEFT VENTRICLE The left ventricle is normal size. There is mild concentric left ventricular hypertrophy. The systoli c function is mildly impaired. The Ejection Fraction is 45-50%. There is mild global hypokinesis of t he left ventricle. Diastology indeterminate. RIGHT VENTRICLE The right ventricle is normal size. There is normal right ventricular wall thickness. The right ventr icular systolic function is normal. ATRIA The left atrium is mildly dilated. The right atrium size is normal. The interatrial septum is intact with no evidence for an atrial septal defect or patent foramen ovale as noted on 2-D or Doppler imagi ng. AORTIC VALVE The aortic valve is calcified but opens well. Doppler and Color Flow revealed no significant aortic r egurgitation. There is no significant aortic valvular stenosis. MITRAL VALVE The mitral valve is mildly thickened. There is no evidence of mitral valve prolapse. There is no mitr al valve stenosis. Doppler and Color-flow revealed trace to mild mitral regurgitation. TRICUSPID VALVE The tricuspid valve is normal in structure and function. Doppler and Color Flow revealed mild tricusp id regurgitation with an estimated PAP of 46 mmHg. There is no tricuspid valve stenosis. PULMONIC VALVE The pulmonic valve is not well visualized. Doppler and Color Flow revealed trace pulmonic valvular re gurgitation. GREAT VESSELS The aortic root is normal in size. The IVC is dilated and collapses >50% with inspiration. PERICARDIAL EFFUSION There is a trace circumferential pericardial effusion with no hemodynamic significance. Critical Notification Critical Value: No <Conclusion> The left ventricle is normal size. The systolic function is mildly impaired. The Ejection Fraction is 45-50%. There is mild global hypokinesis of the left ventricle. There is mild concentric left ventricular hypertrophy. Doppler and Color Flow revealed no significant aortic regurgitation. There is no significant aortic valvular stenosis. Doppler and Color-flow revealed trace to mild mitral regurgitation. Doppler and Color Flow revealed mild tricuspid regurgitation with an estimated PAP of 46 mmHg. Signed by : Enoc Avelar MD Electronically Approved : 07/21/2019 13:12:35
[2019-07-21] MEDS: CLOPIDOGREL BISULFATE 75 MG TABLET PO SCH (13:59)
[2019-07-21] MEDS: amLODIPine BESYLATE 10 MG TABLET PO SCH (14:01)
[2019-07-21] MEDS: ISOSORBIDE MONONITRATE ER 30 MG TAB.ER.24H PO SCH (14:01)
[2019-07-21] MEDS: ATORVASTATIN CALCIUM 10 MG TABLET. PO SCH (14:02)
--- NOTE | 2019-07-21 19:30 | NUR ---
Assessment completed vss poc explained pt denied pain at time of assessment call light in reach will resume care and continue to monitor pt.
--- NOTE | 2019-07-21 19:47 | HP ---
ADMIT DATE: 07/21/2019 CHIEF COMPLAINT AND HISTORY OF PRESENT ILLNESS: This 78-year-old white male, patient of Dr. Doug Renner, presented to the Emergency Room on the morning of admission due to shortness of breath. The patient states he has had at least 2 weeks of a dry cough with increasing shortness of breath. The patient had increased his home oxygen from 2-3 liters and had O2 sats of 86% on 3 liters of oxygen on arrival to the Emergency Room. He has had some pain in both sides of his chest radiating into his shoulders. He complains of generalized weakness. Denies fevers, chills, sweats. The patient in the Emergency Room was positive for influenza A and influenza B, was felt to have an exacerbation of congestive heart failure. In addition ____ Tamiflu as well as Cardiology consultation. I saw him in the Emergency Room on the morning of admission. PAST MEDICAL HISTORY: Extensive includes coronary artery disease, renal disease, hypertension, meningitis, peripheral neuropathy, sleep apnea, urinary retention. PAST SURGICAL HISTORY: Remarkable for hip replacement, knee replacement, CABG, several back surgeries, hemorrhoid surgery and ____ neck surgery. SOCIAL HISTORY: He is a former smoker, does not use alcohol or drugs. FAMILY HISTORY: Noncontributory. ALLERGIES: INCLUDE HYDROMORPHONE. MEDICATIONS: Listed on the computer and have been addressed. REVIEW OF SYSTEMS: As mentioned in history of present illness. LABORATORY DATA: Initial laboratory is remarkable for some fairly unremarkable CBC, pO2 of 60 on 32% FiO2 with abnormal CO2 and pH. INR is normal. D-dimer is slightly elevated at 0.82. Chemistries reveal an elevated troponin in the 0.2 range, but has fallen since admission and Cardiology has been consulted. BUN is 34, creatinine 1.9. BNP was 3849. Imaging in the Emergency Room included a chest x-ray with findings showing suspicious for congestive heart failure. IMPRESSION: 1. Acute exacerbation of congestive heart failure. 2. Elevated troponin. 3. Renal insufficiency. 4. Chronic anemia. 5. Acute hypoxic respiratory failure. 6. Shortness of breath. 7. Positive influenza A and B. PLAN: The patient has been admitted. Cardiology has been consulted. ID has also been consulted because of the positive A and B. I am also going to ask Pulmonary to see him in addition and the patient will be monitored, managed and treated appropriately. TIMOTEO RAO MD DR: Eduard JOB#: [id number] / [id number]
--- NOTE | 2019-07-21 21:01 | CONS ---
DATE OF CONSULTATION: 07/21/2019 REFERRING PHYSICIAN: Jordan Murphy M.D. REASON FOR CONSULTATION: Influenza A and B. HISTORY OF PRESENT ILLNESS: An 78-year-old male with history of hypertension; hyperlipidemia; coronary artery disease, status post coronary artery bypass graft; DJD; peripheral vascular disease; CHF; sleep apnea, presented with complaints of worsening shortness of breath over the last couple of days. Certainly, he had chest tightness last night, which lasted about 20 minutes and gradually got worse. He also had pain in the chest going up both shoulders. He had dry cough, generalized weakness, had associated headache. No fevers, chills, nausea, vomiting, diarrhea, constipation, or urinary symptoms. His O2 needs from home went up from 2 liters to 3 liters. He was hypoxic in the ER at 86%. Influenza screen was positive for influenza A and B, repeat was also positive for influenza A and B. White count was normal. Creatinine was high at 1.9 with normal lactate and lipase. Troponin was elevated. BNP was around 4000. Chest x-ray showed changes suggestive of developing CHF. Echocardiogram done this morning showed ejection fraction of 45-50%, mild global hypokinesis, mild concentric left ventricular hypertrophy. No significant valvular stenosis. The patient was started on Tamiflu. The patient has been admitted to ICU, started on diuresis. ID consult has been requested for further evaluation and treatment. The patient feels tired, shortness of breath has improved. He denies any fevers, chills, or chest pain. Still has headache. He has dry cough. He denies any sick contact. PAST MEDICAL HISTORY: Coronary artery disease, status post bypass; CHF; hypertension; NH; hyperlipidemia; COPD; bronchitis; history of respiratory failure; dementia; peripheral neuropathy; history of meningitis; GERD; low back pain; cervical stenosis; history of MRSA; sinusitis; cataracts; chronic renal insufficiency; and BPH. PAST SURGICAL HISTORY: CABG; cataract surgery; total hip replacement; total knee replacement, both on the right side; PCI; oral and sinus surgery; and low back fusion. FAMILY HISTORY: As per HPI. SOCIAL HISTORY: Quit smoking. ETOH: None. No drugs. Lives with . No sick contact. CURRENT MEDICATIONS: Tamiflu. Other medications reviewed in medication list. ALLERGIES: HYDROMORPHONE. REVIEW OF SYSTEMS: Negative except for above in HPI. PHYSICAL EXAMINATION: VITAL SIGNS: Temperature 97.7, pulse 115, respiratory rate 18, blood pressure 132/85, and oxygen saturation 94% on 3 L by nasal cannula. GENERAL: Alert, oriented x 3 male in no acute distress, pleasant, cooperative. HEENT: Normocephalic, atraumatic, anicteric. No oropharyngeal exudate. No pharyngeal erythema. NECK: Supple. LUNGS: Decreased breath sounds at the bases. HEART: S1, S2. ABDOMEN: Soft, nontender, nondistended. EXTREMITIES: No edema, no cyanosis. DERMATOLOGIC: Warm, dry. No generalized rash. NEUROLOGIC: Alert and oriented x 3, grossly nonfocal. PSYCHIATRIC: Cooperative, appropriate mood and affect. MUSCULOSKELETAL: Changes of DJD. Previous scars over right knee and hip, well healed. LABORATORY DATA: WBC 7.9, hemoglobin 11.4, hematocrit 35.3, platelets 203, neutrophils 75, and troponin 2.01. BNP 3849. Sodium 144, potassium 4.6, chloride 105, bicarbonate 30, BUN 34, creatinine 1.9, glucose 125, and magnesium 2.5. Lactate normal. LFTs within normal limits. Influenza A and B serology is positive by screen done twice per ER. IMAGING: Chest x-ray finding suggestive of early CHF. IMPRESSION: 1. Influenza A and B on rapid screen. Could be false negative. RVP pending 2. Acute hypoxic respiratory failure from congestive heart failure. 3. Elevated troponin and BNP. 4. Coronary artery disease, status post coronary artery bypass graft and stent. 5. Acute kidney injury with underlying chronic kidney disease. 6. Chest pain. Await routine workup for ruling out unstable angina. 7. History of degenerative joint disease. RECOMMENDATIONS: 1. Continue Tamiflu. 2. Follow up labs and cultures. 3. Supportive care. 4. Cardiology is evaluating the patient. Thank you for consulting Infectious Disease to participate in this patient's care. If you have any questions, do not hesitate to contact me. Critical care time spent 35 minutes. VLAD ALEMAN MD DR: EDUARDO/edmundo JOB#: [id number] / [id number] TAURUS
--- NOTE | 2019-07-21 21:44 | NUR ---
Call placed to cardiology re:Pt in afib with no noted history.
--- NOTE | 2019-07-21 22:27 | NUR ---
Call placed to Dr.Appl chew sleep aide.
[2019-07-21] MEDS ORDERED: diphenhydrAMINE HCL 25 MG CAPSULE PO PRN (22:45)
[2019-07-21] MEDS ORDERED: ACETAMINOPHEN 500 MG TABLET PO PRN (22:45)
--- NOTE | 2019-07-22 00:45 | NUR ---
Pt converted to SR at 0025 will continue to monitor pt.
[2019-07-22 02:54] VITALS: BP 155/76
[2019-07-22 07:00] VITALS: BP 167/74
[2019-07-22] MEDS: ISOSORBIDE MONONITRATE ER 30 MG TAB.ER.24H PO SCH (08:33)
[2019-07-22] MEDS: CLOPIDOGREL BISULFATE 75 MG TABLET PO SCH (08:33)
[2019-07-22] MEDS: ASPIRIN ENTERIC COATED 81 MG TABLET.DR. PO SCH (08:34)
[2019-07-22] MEDS: OSELTAMIVIR 30 MG CAPSULE PO SCH ×2 (08:34→20:53)
[2019-07-22] MEDS: amLODIPine BESYLATE 10 MG TABLET PO SCH (08:34)
--- NOTE | 2019-07-22 08:35 | PDOC ---
Infectious Disease Note Subjective: Subjective pt feels better no f/c/n/v/d/chestpain some headache,sore throat some sob and cough but not worse ambulating in hallway Vital Signs: Vital Signs Vital Signs Date Time Temp Pulse Resp B/P (MAP) Pulse Ox O2 Delivery O2 Flow Rate FiO2 07/22/19 07:00 97.4 68 18 167/74 (105) 92 Room Air 97.4 07/21/19 22:23 2.0 Physical Exam: PHYSICAL EXAM GENERAL: Alert, oriented x 3 male in no acute distress, pleasant, cooperative. HEENT: Normocephalic, atraumatic, anicteric. No oropharyngeal exudate. No pharyngeal erythema. NECK: Supple. LUNGS: Decreased breath sounds at the bases. HEART: S1, S2. ABDOMEN: Soft, nontender, nondistended. EXTREMITIES: No edema, no cyanosis. DERMATOLOGIC: Warm, dry. No generalized rash. NEUROLOGIC: Alert and oriented x 3, grossly nonfocal. PSYCHIATRIC: Cooperative, appropriate mood and affect. MUSCULOSKELETAL: Changes of DJD. Previous scars over right knee and hip, well healed. Medications: Inpatient Meds: Current Medications Medications (Trade) Dose Ordered Sig/Holden Start Time Stop Time Status Last Admin Dose Admin Acetaminophen (Tylenol) 500 mg PRN QHS PRN 07/21/19 22:45 07/21/19 22:56 500 MG Albuterol/ Ipratropium (Duoneb) 3 ml 1X ONCE 07/21/19 07:00 07/21/19 07:01 DC 07/21/19 07:26 3 ML Amlodipine Besylate (Norvasc) 10 mg DAILY 07/21/19 13:00 07/21/19 14:01 10 MG Aspirin (Children'S Aspirin) 324 mg 1X ONCE 07/21/19 07:00 07/21/19 07:01 DC 07/21/19 08:23 324 MG Aspirin (Ecotrin) 81 mg DAILYWBKFT 07/21/19 13:00 Atorvastatin Calcium (Lipitor) 10 mg DAILY 07/21/19 13:00 07/21/19 14:02 10 MG Clopidogrel Bisulfate (Plavix) 75 mg DAILY 07/21/19 13:00 07/21/19 13:59 75 MG Diphenhydramine HCl (Benadryl) 25 mg PRN QHS PRN 07/21/19 22:45 07/21/19 22:56 25 MG Furosemide (Lasix) 20 mg 1X ONCE 07/21/19 08:15 07/21/19 08:18 DC 07/21/19 08:24 20 MG Hydralazine HCl (Apresoline Inj) 10 mg PRN Q4HRS PRN 07/21/19 12:45 Isosorbide Mononitrate (Imdur) 60 mg DAILY 07/21/19 13:00 07/21/19 14:01 60 MG Oseltamivir Phosphate (Tamiflu) 30 mg BID 07/21/19 10:00 07/26/19 09:59 07/21/19 20:46 30 MG Labs: Lab Laboratory Tests Test 07/21/19 11:35 07/21/19 14:40 Troponin I Quantitative 0.165 ng/mL (0.000-0.055) 0.163 ng/mL (0.000-0.055) Objective: Assessment: 1. Influenza A and B on rapid screen. Could be false positive 2. Acute hypoxic respiratory failure likely from congestive heart failure. 3. Elevated troponin and BNP. 4. Coronary artery disease, status post coronary artery bypass graft and stent. 5. Acute kidney injury with underlying chronic kidney disease. 6. Chest pain. Await routine workup for ruling out unstable angina. 7. History of degenerative joint disease. Plan: Plan of Care Continue Tamiflu. Follow up labs and cultures. Supportive care. VLAD ALEMAN MD Jul 22, 2019 08:35
[2019-07-22] MEDS: ATORVASTATIN CALCIUM 10 MG TABLET. PO SCH (08:38)
--- NOTE | 2019-07-22 09:46 | NUR ---
IP: Pt is influenza + requiring droplet precautions for 7 days and 24 hours without a fever, whichever is longest.
[2019-07-22 11:00] VITALS: BP 123/67
[2019-07-22] MEDS ORDERED: FUROSEMIDE 40 MG/4 ML VIAL. IVP ONE (11:00)
--- NOTE | 2019-07-22 11:32 | CONS ---
DATE OF CONSULTATION: PULMONARY CONSULTATION ATTENDING PHYSICIAN: Jordan Murphy MD REASON FOR CONSULTATION: Dyspnea. HISTORY OF PRESENT ILLNESS: The patient is an 78-year-old male who has no significant tobacco history. He came into the hospital with shortness of breath. He had a mild dry cough. No chest pain. No headaches, no nausea, vomiting or diarrhea. He uses oxygen at nighttime. His saturations were 86% on 3 liters. The patient was seen in the Emergency Room, a chest x-ray was performed, which showed evidence of interstitial infiltrates and small right pleural effusion, favoring congestive heart failure. The patient did not complain of any fever and he has been afebrile since in the hospital, however. His influenza screen was positive for both influenza A and B. His EF is 45% and he has hypokinesis of left ventricle. I have been asked to see him for further evaluation. PAST MEDICAL HISTORY: History of extensive coronary artery disease, history of renal disease, history of hypertension, meningitis, peripheral neuropathy, sleep apnea and urinary retention. PAST SURGICAL HISTORY: Remarkable for hip replacement, knee replacement, CABG and several back surgeries. SOCIAL HISTORY: He states he does not smoke cigarettes and does not drink alcohol. FAMILY HISTORY: Noncontributory to lungs. ALLERGIES: HYDROMORPHONE. MEDICATIONS: Reviewed as listed in the MRAD. REVIEW OF SYSTEMS: Twelve-point system obtained. Pertinent positives discussed in my history of present illness, otherwise noncontributory. All systems that were negative were reviewed as well. PHYSICAL EXAMINATION: VITAL SIGNS: Reviewed. Blood pressure stable, pulse ox 96% on room air. NECK: Supple. LUNGS: With slightly diminished breath sounds at right base. CARDIOVASCULAR: With a regular rate. ABDOMEN: Soft, nontender. EXTREMITIES: With no pitting edema. LABORATORY DATA: Labs are reviewed. ABGs with a pH of 7.39, pCO2 of 44 and pO2 of 60 on 32% FiO2. His troponin is 0.2. His BUN is 34 and creatinine of 0.9. ProBNP is 3849. IMPRESSION: 1. Acute hypoxic respiratory failure, likely secondary to acute on chronic systolic heart failure. 2. Abnormal chest x-ray with prominent interstitial markings, suggesting interstitial edema. 3. Influenza A and B positive, but no fever and no significant cough. Clinically less likely influenza pneumonia. 4. No significant tobacco history. 5. Chronic kidney disease. 6. Mildly elevated troponin level. RECOMMENDATIONS: 1. Continue with present oxygen, with gradual wean to keep saturation 92 and above. 2. Would recommend p.r.n. Lasix and watching renal function closely. 3. Once he clinically feels better, follow up chest x-ray. 4. Continue isolation for influenza. 5. Continue Tamiflu. 6. Follow cardiology recommendations. 7. Discussed with RN and we will follow along with you. KHRIS UMANZOR MD DR: YOVANNY/edmundo JOB#: [id number] / [id number]
[2019-07-22] MEDS ORDERED: HYDROcodone/APAP 7.5/325MG 1 TAB TABLET PO PRN (11:45)
[2019-07-22 11:52] LABS: CALCIUM 8.8 mg/dL (8.5-10.1); CREATININE 1.8 mg/dL (0.7-1.3); GFR 36.5; MAGNESIUM 2.3 mg/dL (1.8-2.4); POTASSIUM 4.3 mmol/L (3.5-5.1)
[2019-07-22] MEDS: GABAPENTIN 300 MG CAPSULE. PO SCH ×2 (12:05→20:53)
[2019-07-22] MEDS: FLUoxetine HCL 20 MG CAPSULE PO SCH (12:06)
[2019-07-22] MEDS: PYRIDOXINE 50 MG TABLET. PO SCH (12:06)
[2019-07-22] MEDS: CYANOCOBALAMIN (VITAMIN B-12) 1,000 MCG TABLET. PO SCH (12:06)
[2019-07-22] MEDS: PANTOPRAZOLE 40 MG TABLET.DR. PO SCH (12:06)
[2019-07-22] MEDS: FINASTERIDE 5 MG TABLET. PO SCH (12:06)
[2019-07-22] MEDS: ASCORBIC ACID 500 MG TABLET PO SCH (12:06)
[2019-07-22] MEDS: POTASSIUM CHLORIDE 20 MEQ TABLET.ER. PO SCH ×2 (12:07→17:29)
[2019-07-22] MEDS ORDERED: DOCUSATE SODIUM 100 MG CAPSULE. PO PRN (13:00)
[2019-07-22] MEDS ORDERED: POLYETHYLENE GLYCOL 3350 17 GM PACKET. PO PRN (13:00)
[2019-07-22] MEDS ORDERED: POLYETHYLENE GLYCOL 3350 17 GM PACKET. PO SCH (13:00)
[2019-07-22] MEDS ORDERED: DOCUSATE SODIUM 100 MG CAPSULE. PO SCH (13:00)
--- NOTE | 2019-07-22 13:25 | PDOC ---
CARDIO Progress Notes Date and Time Date of Service 07/22/2019 Time of Evaluation 1300 Subjective Subjective: No Chest Pain, No Palpitations, Other (SOA better) Vitals Vitals Vital Signs Date Time Temp Pulse Resp B/P (MAP) Pulse Ox O2 Delivery O2 Flow Rate FiO2 07/22/19 08:34 68 167/74 07/22/19 08:00 Nasal Cannula 2.0 07/22/19 07:00 97.4 18 92 97.4 Weight Weight [ ] Input and Output Intake and Output Intake and Output 07/22/19 07:00 Intake Total 1330 ml Output Total 900 ml Balance 430 ml Intake Oral 1330 ml Output Urine Total 900 ml # Voids 1 Laboratory Labs Laboratory Tests Test 07/21/19 14:40 07/22/19 09:28 Troponin I Quantitative 0.163 ng/mL (0.000-0.055) Sodium Level 143 mmol/L (136-145) Potassium Level 4.3 mmol/L (3.5-5.1) Chloride Level 105 mmol/L (98-107) Carbon Dioxide Level 29 mmol/L (21-32) Anion Gap 9 (6-14) Blood Urea Nitrogen 27 mg/dL (8-26) Creatinine 1.8 mg/dL (0.7-1.3) Estimated GFR (Cockcroft-Gault) 36.5 Glucose Level 167 mg/dL (70-99) Calcium Level 8.8 mg/dL (8.5-10.1) Magnesium Level 2.3 mg/dL (1.8-2.4) Physical Exam HEENT: Neck Supple W Full Motion Chest: Symmetric LUNGS: Other (basilar crackles) Heart: RRR (SR) Abdomen: Soft N/T Extremities: No Edema, No Calf Tenderness Neurology: alert, oriented, follow commands Assessment Assessment 1. FLU A and B 2. Acute on chronic diastolic CHF 3. BARRY vs underlying CKD3: unclear baseline. 4. Elevated troponin: peaked at 0.2. EKG SR without acute changes. underlying ischemia could not be ruled out. Multifactorial as enumerated 5. CAD: past CABG with stent to graft to RCA in 2016 6. HTN: labile 7. HLP 8. Chest pain: concerning for unstable angina features 9. Mild cardiomyopathy: EF at 45-50% 10. PAFIB: new. Long episodes yesterday with spontaneous conversion. Currently SR. Recommendations 1. O2 to titrate, Tamiflu 2. MPI appears to be summer 2018 noted with 54% EF with no reversible defects per chart review. EF at 45% Ultimately he may need a LHC given his sympto matology and significant risk factors after sufficient flu therapy and renal function trend 3. Continue ASA and plavix. Will need MCOT and note burden for NOAC consideration 4. Lasix therapy. Monitor renal function 5. Unable to start on ACEi or ARB due to renal insufficeincy. Will start on metoprolol and hydralazine. . Continue with norvasc and imdur. . . TAHMINA LINDO APRN Jul 22, 2019 13:25
[2019-07-22] MEDS: FUROSEMIDE 20 MG TABLET PO SCH (13:30)
[2019-07-22] MEDS: hydrALAZINE 25 MG TABLET PO SCH ×2 (14:26→20:54)
--- NOTE | 2019-07-22 14:59 | NUR ---
SS following for discharge planning. SS reviewed pt chart. Pt is from home with spouse and is currently on room air. SS will continue to follow for discharge planning.
[2019-07-22 15:00] VITALS: BP 149/70
[2019-07-22] MEDS ORDERED: CARVEDILOL 6.25 MG TABLET. PO SCH (17:00)
--- NOTE | 2019-07-22 17:00 | PDOC ---
GENERAL General: vss and afebrile. awake and alert and definitely less sob and orthopnea prior to admission resolved. had lots urine output with iv lasix in ER. chest clear, heart regular, abdomen benign. episode of paroxysmal a-fib during night that spontaneously resolved. continue present care. back on home po lasix dose and will defer to cardiology as to whether he needs more. renal insufficiency precludes use of KARLA which would good for blood pressure and chf. VITAL SIGNS/I&O Vital Signs/I&O: Vital Signs Date Time Temp Pulse Resp B/P (MAP) Pulse Ox O2 Delivery O2 Flow Rate FiO2 07/22/19 15:00 97.6 66 18 149/70 (96) 94 Nasal Cannula 2.0 97.6 I & O 07/21/19 07/21/19 07/22/19 14:59 22:59 06:59 Intake Total 500 ml 490 ml 340 ml Output Total 700 ml 200 ml Balance -200 ml 290 ml 340 ml ALLERGIES Allergies: Allergies Coded Allergies Type Severity Reaction Last Updated Verified hydromorphone Adverse Reaction Mild combative 01/22/18 Yes MEDS Medications: Current Medications Medications (Trade) Dose Ordered Sig/Holden Route PRN Reason Start Time Stop Time Status Last Admin Dose Admin Acetaminophen (Tylenol) 500 mg PRN QHS PRN PO MILD PAIN / TEMP 07/21/19 22:45 07/21/19 22:56 Diphenhydramine HCl (Benadryl) 25 mg PRN QHS PRN PO INSOMNIA 07/21/19 22:45 07/21/19 22:56 Furosemide (Lasix) 40 mg 1X ONCE IVP 07/22/19 11:00 07/22/19 11:08 DC 07/22/19 12:05 Ascorbic Acid (Vitamin C) 500 mg DAILY PO 07/22/19 13:00 07/22/19 12:06 Cyanocobalamin (Vitamin B-12) 500 mcg DAILY PO 07/22/19 13:00 07/22/19 12:06 Finasteride (Proscar) 5 mg DAILY PO 07/22/19 13:00 07/22/19 12:06 Potassium Chloride (Klor-Con) 20 meq BIDWMEALS PO 07/22/19 13:00 07/22/19 12:07 Fluoxetine HCl (PROzac) 20 mg DAILY PO 07/22/19 13:00 07/22/19 12:06 Pantoprazole Sodium (Protonix) 40 mg DAILYAC PO 07/22/19 13:00 07/22/19 12:06 Pyridoxine HCl (Vitamin B-6) 100 mg DAILY PO 07/22/19 13:00 07/22/19 12:06 Gabapentin (Neurontin) 600 mg BID PO 07/22/19 13:00 07/22/19 12:05 Hydralazine HCl (Apresoline) 25 mg TID PO 07/22/19 14:00 07/22/19 14:26 LAB Lab: Laboratory Tests Test 07/22/19 09:28 Sodium Level 143 mmol/L (136-145) Potassium Level 4.3 mmol/L (3.5-5.1) Chloride Level 105 mmol/L (98-107) Carbon Dioxide Level 29 mmol/L (21-32) Anion Gap 9 (6-14) Blood Urea Nitrogen 27 mg/dL (8-26) H Creatinine 1.8 mg/dL (0.7-1.3) H Estimated GFR (Cockcroft-Gault) 36.5 Glucose Level 167 mg/dL (70-99) H Calcium Level 8.8 mg/dL (8.5-10.1) Magnesium Level 2.3 mg/dL (1.8-2.4) Laboratory Tests 07/22/19 09:28 TIMOTEO RAO MD Jul 22, 2019 17:00
--- NOTE | 2019-07-22 17:03 | PDOC ---
GENERAL General: addendum: patient's creatinine was 2.0 in 2018 on preoperative testing done here. would make CKD likely and currently at his baseline. VITAL SIGNS/I&O Vital Signs/I&O: Vital Signs Date Time Temp Pulse Resp B/P (MAP) Pulse Ox O2 Delivery O2 Flow Rate FiO2 07/22/19 15:00 97.6 66 18 149/70 (96) 94 Nasal Cannula 2.0 97.6 I & O 07/21/19 07/21/19 07/22/19 15:00 23:00 07:00 Intake Total 500 ml 490 ml 340 ml Output Total 700 ml 200 ml Balance -200 ml 290 ml 340 ml ALLERGIES Allergies: Allergies Coded Allergies Type Severity Reaction Last Updated Verified hydromorphone Adverse Reaction Mild combative 01/22/18 Yes MEDS Medications: Current Medications Medications (Trade) Dose Ordered Sig/Holden Route PRN Reason Start Time Stop Time Status Last Admin Dose Admin Acetaminophen (Tylenol) 500 mg PRN QHS PRN PO MILD PAIN / TEMP 07/21/19 22:45 07/21/19 22:56 Diphenhydramine HCl (Benadryl) 25 mg PRN QHS PRN PO INSOMNIA 07/21/19 22:45 07/21/19 22:56 Furosemide (Lasix) 40 mg 1X ONCE IVP 07/22/19 11:00 07/22/19 11:08 DC 07/22/19 12:05 Ascorbic Acid (Vitamin C) 500 mg DAILY PO 07/22/19 13:00 07/22/19 12:06 Cyanocobalamin (Vitamin B-12) 500 mcg DAILY PO 07/22/19 13:00 07/22/19 12:06 Finasteride (Proscar) 5 mg DAILY PO 07/22/19 13:00 07/22/19 12:06 Potassium Chloride (Klor-Con) 20 meq BIDWMEALS PO 07/22/19 13:00 07/22/19 12:07 Fluoxetine HCl (PROzac) 20 mg DAILY PO 07/22/19 13:00 07/22/19 12:06 Pantoprazole Sodium (Protonix) 40 mg DAILYAC PO 07/22/19 13:00 07/22/19 12:06 Pyridoxine HCl (Vitamin B-6) 100 mg DAILY PO 07/22/19 13:00 07/22/19 12:06 Gabapentin (Neurontin) 600 mg BID PO 07/22/19 13:00 07/22/19 12:05 Hydralazine HCl (Apresoline) 25 mg TID PO 07/22/19 14:00 07/22/19 14:26 LAB Lab: Laboratory Tests Test 07/22/19 09:28 Sodium Level 143 mmol/L (136-145) Potassium Level 4.3 mmol/L (3.5-5.1) Chloride Level 105 mmol/L (98-107) Carbon Dioxide Level 29 mmol/L (21-32) Anion Gap 9 (6-14) Blood Urea Nitrogen 27 mg/dL (8-26) H Creatinine 1.8 mg/dL (0.7-1.3) H Estimated GFR (Cockcroft-Gault) 36.5 Glucose Level 167 mg/dL (70-99) H Calcium Level 8.8 mg/dL (8.5-10.1) Magnesium Level 2.3 mg/dL (1.8-2.4) Laboratory Tests 07/22/19 09:28 TIMOTEO RAO MD Jul 22, 2019 17:03
[2019-07-22 19:09] VITALS: BP 138/65
--- NOTE | 2019-07-22 19:10 | NUR ---
Assessment completed vss poc explained pt [id number] pain at this time call light in reach will resume care and continue to monitor pt.
[2019-07-22] MEDS: TAMSULOSIN 0.4 MG CAP.ER.24H. PO SCH (20:53)
[2019-07-22] MEDS: METOPROLOL TART IMMED RELEASE 25 MG TABLET. PO SCH (20:53)
[2019-07-22 23:00] VITALS: BP 126/58
[2019-07-23 02:18] VITALS: BP 125/69
[2019-07-23 04:51] LABS: CALCIUM 9.1 mg/dL (8.5-10.1); CREATININE 1.8 mg/dL (0.7-1.3); GFR 36.5; POTASSIUM 3.9 mmol/L (3.5-5.1)
[2019-07-23] MEDS: PANTOPRAZOLE 40 MG TABLET.DR. PO SCH (05:45)
--- NOTE | 2019-07-23 06:50 | PDOC ---
PULMONARY PROGRESS NOTES Subjective sob better, has occ cough, at home is on nocturnal 02 Vitals Vital Signs Date Time Temp Pulse Resp B/P (MAP) Pulse Ox O2 Delivery O2 Flow Rate FiO2 07/23/19 02:18 98.4 52 18 125/69 (87) 95 Nasal Cannula 2.0 98.4 ROS: No Nausea General: Alert HEENT: Other (nc at perrl nose throat clear) Lungs: Clear Cardiovascular: S1, S2 Abdomen: Soft Neuro Exam: Alert Extremities: No Edema Skin: Warm Labs Laboratory Tests Test 07/21/19 07:42 07/21/19 07:59 07/21/19 11:35 07/21/19 14:40 O2 Saturation 90 % (92-99) Arterial Blood pH 7.39 (7.35-7.45) Arterial Blood pCO2 at Patient Temp 44 mmHg (35-46) Arterial Blood pO2 at Patient Temp 60 mmHg (65-108) Arterial Blood HCO3 26 mmol/L (21-28) Arterial Blood Base Excess 1 mmol/L (-3-3) FiO2 32 Influenza Type A Antigen Positive (NEGATIVE) Influenza Type B Antigen Positive (NEGATIVE) Troponin I Quantitative 0.165 ng/mL (0.000-0.055) 0.163 ng/mL (0.000-0.055) Test 07/22/19 09:28 07/23/19 03:10 Sodium Level 143 mmol/L (136-145) 144 mmol/L (136-145) Potassium Level 4.3 mmol/L (3.5-5.1) 3.9 mmol/L (3.5-5.1) Chloride Level 105 mmol/L (98-107) 106 mmol/L (98-107) Carbon Dioxide Level 29 mmol/L (21-32) 29 mmol/L (21-32) Anion Gap 9 (6-14) 9 (6-14) Blood Urea Nitrogen 27 mg/dL (8-26) 32 mg/dL (8-26) Creatinine 1.8 mg/dL (0.7-1.3) 1.8 mg/dL (0.7-1.3) Estimated GFR (Cockcroft-Gault) 36.5 36.5 Glucose Level 167 mg/dL (70-99) 115 mg/dL (70-99) Calcium Level 8.8 mg/dL (8.5-10.1) 9.1 mg/dL (8.5-10.1) Magnesium Level 2.3 mg/dL (1.8-2.4) Laboratory Tests Test 07/22/19 09:28 07/23/19 03:10 Sodium Level 143 mmol/L (136-145) 144 mmol/L (136-145) Potassium Level 4.3 mmol/L (3.5-5.1) 3.9 mmol/L (3.5-5.1) Chloride Level 105 mmol/L (98-107) 106 mmol/L (98-107) Carbon Dioxide Level 29 mmol/L (21-32) 29 mmol/L (21-32) Anion Gap 9 (6-14) 9 (6-14) Blood Urea Nitrogen 27 mg/dL (8-26) 32 mg/dL (8-26) Creatinine 1.8 mg/dL (0.7-1.3) 1.8 mg/dL (0.7-1.3) Estimated GFR (Cockcroft-Gault) 36.5 36.5 Glucose Level 167 mg/dL (70-99) 115 mg/dL (70-99) Calcium Level 8.8 mg/dL (8.5-10.1) 9.1 mg/dL (8.5-10.1) Magnesium Level 2.3 mg/dL (1.8-2.4) Medications Active Scripts Medications Dose Route/Sig Max Daily Dose Days Date Category Colace (Docusate Sodium) 100 Mg Capsule 100 Mg PO BID 30 01/22/18 Rx Hydrocodone-Apap 7.5-325 (Hydrocodone Bit/Acetaminophen) 1 Each Tablet 1 Tab PO PRN Q6HRS PRN 01/22/18 Rx Potassium Chloride (Potassium Chloride) 20 Meq Tablet.er 20 Meq PO BID 01/20/18 Reported Furosemide 20 Mg Tablet 20 Mg PO DAILY 01/20/18 Reported Miralax (Polyethylene Glycol 3350) 17 Gm Powd.pack 1 Pkt PO DAILY 07/20/17 Reported Vitamin C (Ascorbic Acid) 500 Mg Tablet 500 Mg PO DAILY 07/20/17 Reported Vitamin B-6 (Pyridoxine Hcl) 100 Mg Tablet 100 Mg PO DAILY 07/20/17 Reported Vitamin B-12 (Cyanocobalamin (Vitamin B-12)) 1,000 Mcg Tablet 500 Mcg PO DAILY 07/20/17 Reported Clopidogrel (Clopidogrel Bisulfate) 75 Mg Tablet 1 Tab PO DAILY 05/27/16 Reported Gabapentin 600 Mg Tablet 600 Mg PO BID 05/25/16 Reported Finasteride 5 Mg Tablet 1 Tab PO DAILY 05/25/16 Reported Centrum Silver Tablet (Multivits-Min/Fa/Lycopene/Lut) 1 Each Tablet 1 Each PO DAILY 01/19/15 Reported Isosorbide Mononitrate Er (Isosorbide Mononitrate) 60 Mg Tab.er.24h 1 Tab PO DAILY 01/19/15 Reported Omeprazole 40 Mg Capsule.dr 40 Mg PO DAILY 10/14/13 Reported Fluoxetine Hcl 10 Mg Tablet 20 Mg PO DAILY 10/14/13 Reported Amlodipine Besylate 5 Mg Tablet 10 Mg PO DAILY 10/14/13 Reported Atorvastatin Calcium 10 Mg Tablet 10 Mg PO DAILY 10/14/13 Reported Tamsulosin Hcl 0.4 Mg Cap.er.24h 0.4 Mg PO HS 10/14/13 Reported Impression . IMPRESSION: 1. Acute hypoxic respiratory failure, likely secondary to acute on chronic systolic heart failure. 2. Abnormal chest x-ray with prominent interstitial markings, suggesting interstitial edema. 3. Influenza A and B positive, but no fever and no significant cough. Clinically less likely influenza pneumonia. 4. No significant tobacco history. 5. Chronic kidney disease. 6. Mildly elevated troponin level. Plan . RECOMMENDATIONS: 1. Continue with present oxygen, with gradual wean to keep saturation 92 and above. he is on nocturnal 02 at home 2. Would recommend p.r.n. Lasix and monitor renal function closely. 3. clinically improved, follow up chest x-ray. 4. Continue isolation for influenza. 5. Continue Tamiflu. 6. Follow cardiology recommendations. 7. Discussed with RN, pt and we will follow along with you. JUDITH MCQUEEN MD Jul 23, 2019 06:50
[2019-07-23 07:00] VITALS: BP 119/58
[2019-07-23] MEDS: PYRIDOXINE 50 MG TABLET. PO SCH (09:32)
[2019-07-23] MEDS: ASCORBIC ACID 500 MG TABLET PO SCH (09:32)
[2019-07-23] MEDS: amLODIPine BESYLATE 10 MG TABLET PO SCH (09:32)
[2019-07-23] MEDS: FUROSEMIDE 20 MG TABLET PO SCH (09:32)
[2019-07-23] MEDS: FLUoxetine HCL 20 MG CAPSULE PO SCH (09:33)
[2019-07-23] MEDS: POTASSIUM CHLORIDE 20 MEQ TABLET.ER. PO SCH ×2 (09:33→17:15)
[2019-07-23] MEDS: CLOPIDOGREL BISULFATE 75 MG TABLET PO SCH (09:33)
[2019-07-23] MEDS: FINASTERIDE 5 MG TABLET. PO SCH (09:33)
[2019-07-23] MEDS: CYANOCOBALAMIN (VITAMIN B-12) 1,000 MCG TABLET. PO SCH (09:33)
[2019-07-23] MEDS: OSELTAMIVIR 30 MG CAPSULE PO SCH ×2 (09:34→21:55)
[2019-07-23] MEDS: hydrALAZINE 25 MG TABLET PO SCH ×3 (09:34→21:57)
[2019-07-23] MEDS: METOPROLOL TART IMMED RELEASE 25 MG TABLET. PO SCH ×2 (09:34→21:56)
[2019-07-23] MEDS: GABAPENTIN 300 MG CAPSULE. PO SCH ×2 (09:34→21:55)
[2019-07-23] MEDS: ASPIRIN ENTERIC COATED 81 MG TABLET.DR. PO SCH (09:34)
[2019-07-23] MEDS: ISOSORBIDE MONONITRATE ER 30 MG TAB.ER.24H PO SCH (09:35)
[2019-07-23] MEDS: ATORVASTATIN CALCIUM 10 MG TABLET. PO SCH (09:38)
--- NOTE | 2019-07-23 09:38 | PDOC ---
Infectious Disease Note Subjective: Subjective pt feels better no f/c/n/v/d/chestpain/headache,sore throat some sob and cough but not worse eager for dc home today Vital Signs: Vital Signs Vital Signs Date Time Temp Pulse Resp B/P (MAP) Pulse Ox O2 Delivery O2 Flow Rate FiO2 07/23/19 07:00 97.6 54 18 119/58 (78) 94 Nasal Cannula 2.0 97.6 Physical Exam: PHYSICAL EXAM GENERAL: Alert, oriented x 3 male in no acute distress, pleasant, cooperative. HEENT: Normocephalic, atraumatic, anicteric. No oropharyngeal exudate. No pharyngeal erythema. NECK: Supple. LUNGS: Decreased breath sounds at the bases. HEART: S1, S2. ABDOMEN: Soft, nontender, nondistended. EXTREMITIES: No edema, no cyanosis. DERMATOLOGIC: Warm, dry. No generalized rash. NEUROLOGIC: Alert and oriented x 3, grossly nonfocal. PSYCHIATRIC: Cooperative, appropriate mood and affect. MUSCULOSKELETAL: Changes of DJD. Previous scars over right knee and hip, well healed. Medications: Inpatient Meds: Current Medications Medications (Trade) Dose Ordered Sig/Holden Start Time Stop Time Status Last Admin Dose Admin Acetaminophen (Tylenol) 500 mg PRN QHS PRN 07/21/19 22:45 07/21/19 22:56 500 MG Acetaminophen/ Hydrocodone Bitart (Lortab 7.5/325) 1 tab PRN Q6HRS PRN 07/22/19 11:45 Albuterol/ Ipratropium (Duoneb) 3 ml 1X ONCE 07/21/19 07:00 07/21/19 07:01 DC 07/21/19 07:26 3 ML Amlodipine Besylate (Norvasc) 10 mg DAILY 07/21/19 13:00 07/22/19 08:34 10 MG Ascorbic Acid (Vitamin C) 500 mg DAILY 07/22/19 13:00 07/22/19 12:06 500 MG Aspirin (Children'S Aspirin) 324 mg 1X ONCE 07/21/19 07:00 07/21/19 07:01 DC 07/21/19 08:23 324 MG Aspirin (Ecotrin) 81 mg DAILYWBKFT 07/21/19 13:00 07/22/19 08:34 81 MG Atorvastatin Calcium (Lipitor) 10 mg DAILY 07/21/19 13:00 07/22/19 08:38 10 MG Carvedilol (Coreg) 3.125 mg BIDWMEALS 07/22/19 17:00 07/22/19 13:22 DC Clopidogrel Bisulfate (Plavix) 75 mg DAILY 07/21/19 13:00 07/22/19 08:33 75 MG Cyanocobalamin (Vitamin B-12) 500 mcg DAILY 07/22/19 13:00 07/22/19 12:06 500 MCG Diphenhydramine HCl (Benadryl) 25 mg PRN QHS PRN 07/21/19 22:45 07/21/19 22:56 25 MG Docusate Sodium (Colace) 100 mg PRN BID PRN 07/22/19 13:00 Finasteride (Proscar) 5 mg DAILY 07/22/19 13:00 07/22/19 12:06 5 MG Fluoxetine HCl (PROzac) 20 mg DAILY 07/22/19 13:00 07/22/19 12:06 20 MG Furosemide (Lasix) 20 mg DAILY 07/22/19 13:30 Gabapentin (Neurontin) 600 mg BID 07/22/19 13:00 07/22/19 20:53 600 MG Hydralazine HCl (Apresoline Inj) 10 mg PRN Q4HRS PRN 07/21/19 12:45 Hydralazine HCl (Apresoline) 25 mg TID 07/22/19 14:00 07/22/19 20:54 25 MG Isosorbide Mononitrate (Imdur) 60 mg DAILY 07/21/19 13:00 07/22/19 08:33 60 MG Metoprolol Tartrate (Lopressor) 25 mg BID 07/22/19 21:00 07/22/19 20:53 25 MG Oseltamivir Phosphate (Tamiflu) 30 mg BID 07/21/19 10:00 07/26/19 09:59 07/22/19 20:53 30 MG Pantoprazole Sodium (Protonix) 40 mg DAILYAC 07/22/19 13:00 07/23/19 05:45 40 MG Polyethylene Glycol (miraLAX PACKET) 17 gm PRN DAILY PRN 07/22/19 13:00 Potassium Chloride (Klor-Con) 20 meq BIDWMEALS 07/22/19 13:00 07/22/19 17:29 20 MEQ Pyridoxine HCl (Vitamin B-6) 100 mg DAILY 07/22/19 13:00 07/22/19 12:06 100 MG Tamsulosin HCl (Flomax) 0.4 mg HS 07/22/19 21:00 07/22/19 20:53 0.4 MG Labs: Lab Laboratory Tests Test 07/23/19 03:10 Sodium Level 144 mmol/L (136-145) Potassium Level 3.9 mmol/L (3.5-5.1) Chloride Level 106 mmol/L (98-107) Carbon Dioxide Level 29 mmol/L (21-32) Anion Gap 9 (6-14) Blood Urea Nitrogen 32 mg/dL (8-26) Creatinine 1.8 mg/dL (0.7-1.3) Estimated GFR (Cockcroft-Gault) 36.5 Glucose Level 115 mg/dL (70-99) Calcium Level 9.1 mg/dL (8.5-10.1) Objective: Assessment: 1. Influenza A and B on rapid screen. Could be false positive 2. Acute hypoxic respiratory failure likely from congestive heart failure. 3. Elevated troponin and BNP. 4. Coronary artery disease, status post coronary artery bypass graft and stent. 5. Acute kidney injury with underlying chronic kidney disease. 6. Chest pain. Await routine workup for ruling out unstable angina. 7. History of degenerative joint disease. Plan: Plan of Care Continue Tamiflu for total 5 days. f/u cults Supportive care. d/w VLAD Lopez MD Jul 23, 2019 09:38
[2019-07-23 11:00] VITALS: BP 114/54
--- NOTE | 2019-07-23 11:17 | PDOC ---
Provider Note Provider Note feels good, no temp , bp lower and rate 45-50- still some RLL crackles, will repeat cxr re R pleural effusion on admit- cv considering heart cath, meds same for now LAVONNE MATHEW MD Jul 23, 2019 11:17
[2019-07-23 15:00] VITALS: BP 123/58
[2019-07-23 19:00] VITALS: BP 113/54
--- NOTE | 2019-07-23 19:15 | NUR ---
Pt sitting up in chair assessment completed vss poc explained ,pt denies pain will resume care and continue to monitor pt.
[2019-07-23] MEDS: TAMSULOSIN 0.4 MG CAP.ER.24H. PO SCH (21:55)
[2019-07-23 23:00] VITALS: BP 121/60
[2019-07-24 03:21] VITALS: BP 119/57
[2019-07-24] MEDS: PANTOPRAZOLE 40 MG TABLET.DR. PO SCH (05:31)
--- NOTE | 2019-07-24 06:55 | PDOC ---
PULMONARY PROGRESS NOTES Subjective denies sob, has occ cough, at home is on nocturnal 02, wants to go home Vitals Vital Signs Date Time Temp Pulse Resp B/P (MAP) Pulse Ox O2 Delivery O2 Flow Rate FiO2 07/24/19 03:21 97.7 56 18 119/57 (77) 97 Nasal Cannula 2.0 97.7 ROS: No Nausea, No Chest Pain General: Alert HEENT: Other (nc at perrl nose throat clear) Lungs: Clear Cardiovascular: S1, S2 Abdomen: Soft Neuro Exam: Alert Extremities: No Edema Skin: Warm Labs Laboratory Tests Test 07/22/19 09:28 07/23/19 03:10 Sodium Level 143 mmol/L (136-145) 144 mmol/L (136-145) Potassium Level 4.3 mmol/L (3.5-5.1) 3.9 mmol/L (3.5-5.1) Chloride Level 105 mmol/L (98-107) 106 mmol/L (98-107) Carbon Dioxide Level 29 mmol/L (21-32) 29 mmol/L (21-32) Anion Gap 9 (6-14) 9 (6-14) Blood Urea Nitrogen 27 mg/dL (8-26) 32 mg/dL (8-26) Creatinine 1.8 mg/dL (0.7-1.3) 1.8 mg/dL (0.7-1.3) Estimated GFR (Cockcroft-Gault) 36.5 36.5 Glucose Level 167 mg/dL (70-99) 115 mg/dL (70-99) Calcium Level 8.8 mg/dL (8.5-10.1) 9.1 mg/dL (8.5-10.1) Magnesium Level 2.3 mg/dL (1.8-2.4) Medications Active Scripts Medications Dose Route/Sig Max Daily Dose Days Date Category Colace (Docusate Sodium) 100 Mg Capsule 100 Mg PO BID 30 01/22/18 Rx Hydrocodone-Apap 7.5-325 (Hydrocodone Bit/Acetaminophen) 1 Each Tablet 1 Tab PO PRN Q6HRS PRN 01/22/18 Rx Potassium Chloride (Potassium Chloride) 20 Meq Tablet.er 20 Meq PO BID 01/20/18 Reported Furosemide 20 Mg Tablet 20 Mg PO DAILY 01/20/18 Reported Miralax (Polyethylene Glycol 3350) 17 Gm Powd.pack 1 Pkt PO DAILY 07/20/17 Reported Vitamin C (Ascorbic Acid) 500 Mg Tablet 500 Mg PO DAILY 07/20/17 Reported Vitamin B-6 (Pyridoxine Hcl) 100 Mg Tablet 100 Mg PO DAILY 07/20/17 Reported Vitamin B-12 (Cyanocobalamin (Vitamin B-12)) 1,000 Mcg Tablet 500 Mcg PO DAILY 07/20/17 Reported Clopidogrel (Clopidogrel Bisulfate) 75 Mg Tablet 1 Tab PO DAILY 05/27/16 Reported Gabapentin 600 Mg Tablet 600 Mg PO BID 05/25/16 Reported Finasteride 5 Mg Tablet 1 Tab PO DAILY 05/25/16 Reported Centrum Silver Tablet (Multivits-Min/Fa/Lycopene/Lut) 1 Each Tablet 1 Each PO DAILY 01/19/15 Reported Isosorbide Mononitrate Er (Isosorbide Mononitrate) 60 Mg Tab.er.24h 1 Tab PO DAILY 01/19/15 Reported Omeprazole 40 Mg Capsule.dr 40 Mg PO DAILY 10/14/13 Reported Fluoxetine Hcl 10 Mg Tablet 20 Mg PO DAILY 10/14/13 Reported Amlodipine Besylate 5 Mg Tablet 10 Mg PO DAILY 10/14/13 Reported Atorvastatin Calcium 10 Mg Tablet 10 Mg PO DAILY 10/14/13 Reported Tamsulosin Hcl 0.4 Mg Cap.er.24h 0.4 Mg PO HS 10/14/13 Reported Impression . IMPRESSION: 1. Acute hypoxic respiratory failure, likely secondary to acute on chronic systolic heart failure. 2. Abnormal chest x-ray with prominent interstitial markings, suggesting interstitial edema. 3. Influenza A and B positive, but no fever and no significant cough. Clinically less likely influenza pneumonia. 4. No significant tobacco history. 5. Chronic kidney disease. 6. Mildly elevated troponin level. Plan . RECOMMENDATIONS: 1. cont nocturnal 02 at home. titrate fi02 to keep sat 90%. 6 min walk at [place] 2. Would recommend p.r.n. Lasix and monitor renal function closely. 3. clinically improved, 4. Continue isolation for influenza. 5. Continue Tamiflu. 6. Follow cardiology recommendations. 7. Discussed with RN, pt. ok to ma from pulm standpoint JUDITH MCQUEEN MD Jul 24, 2019 06:55
[2019-07-24 07:00] VITALS: BP 141/60
--- NOTE | 2019-07-24 08:43 | PDOC ---
Infectious Disease Note Subjective: Subjective pt feels better no f/c/n/v/d/chestpain/headache,sore throat no cough or sob Vital Signs: Vital Signs Vital Signs Date Time Temp Pulse Resp B/P (MAP) Pulse Ox O2 Delivery O2 Flow Rate FiO2 07/24/19 03:21 97.7 56 18 119/57 (77) 97 Nasal Cannula 2.0 97.7 Physical Exam: PHYSICAL EXAM GENERAL: Alert, oriented x 3 male in no acute distress, pleasant, cooperative. HEENT: Normocephalic, atraumatic, anicteric. No oropharyngeal exudate. No pharyngeal erythema. NECK: Supple. LUNGS: Decreased breath sounds at the bases. HEART: S1, S2. ABDOMEN: Soft, nontender, nondistended. EXTREMITIES: No edema, no cyanosis. DERMATOLOGIC: Warm, dry. No generalized rash. NEUROLOGIC: Alert and oriented x 3, grossly nonfocal. PSYCHIATRIC: Cooperative, appropriate mood and affect. MUSCULOSKELETAL: Changes of DJD. Previous scars over right knee and hip, well healed. Medications: Inpatient Meds: Current Medications Medications (Trade) Dose Ordered Sig/Holden Start Time Stop Time Status Last Admin Dose Admin Acetaminophen (Tylenol) 500 mg PRN QHS PRN 07/21/19 22:45 07/21/19 22:56 500 MG Acetaminophen/ Hydrocodone Bitart (Lortab 7.5/325) 1 tab PRN Q6HRS PRN 07/22/19 11:45 Albuterol/ Ipratropium (Duoneb) 3 ml 1X ONCE 07/21/19 07:00 07/21/19 07:01 DC 07/21/19 07:26 3 ML Amlodipine Besylate (Norvasc) 10 mg DAILY 07/21/19 13:00 07/23/19 09:32 10 MG Ascorbic Acid (Vitamin C) 500 mg DAILY 07/22/19 13:00 07/23/19 09:32 500 MG Aspirin (Children'S Aspirin) 324 mg 1X ONCE 07/21/19 07:00 07/21/19 07:01 DC 07/21/19 08:23 324 MG Aspirin (Ecotrin) 81 mg DAILYWBKFT 07/21/19 13:00 07/23/19 09:34 81 MG Atorvastatin Calcium (Lipitor) 10 mg DAILY 07/21/19 13:00 07/23/19 09:38 10 MG Carvedilol (Coreg) 3.125 mg BIDWMEALS 07/22/19 17:00 07/22/19 13:22 DC Clopidogrel Bisulfate (Plavix) 75 mg DAILY 07/21/19 13:00 07/23/19 09:33 75 MG Cyanocobalamin (Vitamin B-12) 500 mcg DAILY 07/22/19 13:00 07/23/19 09:33 500 MCG Diphenhydramine HCl (Benadryl) 25 mg PRN QHS PRN 07/21/19 22:45 07/21/19 22:56 25 MG Docusate Sodium (Colace) 100 mg PRN BID PRN 07/22/19 13:00 Finasteride (Proscar) 5 mg DAILY 07/22/19 13:00 07/23/19 09:33 5 MG Fluoxetine HCl (PROzac) 20 mg DAILY 07/22/19 13:00 07/23/19 09:33 20 MG Furosemide (Lasix) 20 mg DAILY 07/22/19 13:30 07/23/19 09:32 20 MG Gabapentin (Neurontin) 600 mg BID 07/22/19 13:00 07/23/19 21:55 600 MG Hydralazine HCl (Apresoline Inj) 10 mg PRN Q4HRS PRN 07/21/19 12:45 Hydralazine HCl (Apresoline) 25 mg TID 07/22/19 14:00 07/23/19 21:57 25 MG Isosorbide Mononitrate (Imdur) 60 mg DAILY 07/21/19 13:00 07/23/19 09:35 60 MG Metoprolol Tartrate (Lopressor) 25 mg BID 07/22/19 21:00 07/23/19 09:34 25 MG Oseltamivir Phosphate (Tamiflu) 30 mg BID 07/21/19 10:00 07/26/19 09:59 07/23/19 21:55 30 MG Pantoprazole Sodium (Protonix) 40 mg DAILYAC 07/22/19 13:00 07/24/19 05:31 40 MG Polyethylene Glycol (miraLAX PACKET) 17 gm PRN DAILY PRN 07/22/19 13:00 Potassium Chloride (Klor-Con) 20 meq BIDWMEALS 07/22/19 13:00 2/8/20 17:15 20 MEQ Pyridoxine HCl (Vitamin B-6) 100 mg DAILY 07/22/19 13:00 07/23/19 09:32 100 MG Tamsulosin HCl (Flomax) 0.4 mg HS 07/22/19 21:00 07/23/19 21:55 0.4 MG Objective: Assessment: 1. Influenza A and B on rapid screen. Could be false positive 2. Acute hypoxic respiratory failure likely from congestive heart failure. 3. Elevated troponin and BNP. 4. Coronary artery disease, status post coronary artery bypass graft and stent. 5. Acute kidney injury with underlying chronic kidney disease. 6. Chest pain. Await routine workup for ruling out unstable angina. 7. History of degenerative joint disease. Plan: Plan of Care Continue Tamiflu for total 5 days. f/u RVP awaiting cardiology w/u f/u cults Supportive care. d/w VLAD Lopez MD Jul 24, 2019 08:43
[2019-07-24] MEDS: POTASSIUM CHLORIDE 20 MEQ TABLET.ER. PO SCH (08:48)
[2019-07-24] MEDS: FINASTERIDE 5 MG TABLET. PO SCH (08:48)
[2019-07-24] MEDS: ISOSORBIDE MONONITRATE ER 30 MG TAB.ER.24H PO SCH (08:49)
[2019-07-24] MEDS: CLOPIDOGREL BISULFATE 75 MG TABLET PO SCH (08:49)
[2019-07-24] MEDS: PYRIDOXINE 50 MG TABLET. PO SCH (08:49)
[2019-07-24] MEDS: amLODIPine BESYLATE 10 MG TABLET PO SCH (08:49)
[2019-07-24] MEDS: OSELTAMIVIR 30 MG CAPSULE PO SCH (08:49)
[2019-07-24] MEDS: FLUoxetine HCL 20 MG CAPSULE PO SCH (08:49)
[2019-07-24] MEDS: ASCORBIC ACID 500 MG TABLET PO SCH (08:49)
[2019-07-24] MEDS: ASPIRIN ENTERIC COATED 81 MG TABLET.DR. PO SCH (08:49)
[2019-07-24] MEDS: FUROSEMIDE 20 MG TABLET PO SCH (08:50)
[2019-07-24] MEDS: ATORVASTATIN CALCIUM 10 MG TABLET. PO SCH (08:50)
[2019-07-24] MEDS: GABAPENTIN 300 MG CAPSULE. PO SCH (08:50)
[2019-07-24] MEDS: CYANOCOBALAMIN (VITAMIN B-12) 1,000 MCG TABLET. PO SCH (08:50)
[2019-07-24] MEDS: hydrALAZINE 25 MG TABLET PO SCH (08:50)
[2019-07-24] MEDS: METOPROLOL TART IMMED RELEASE 25 MG TABLET. PO SCH (09:00)
--- NOTE | 2019-07-24 09:07 | NUR ---
RN NOTE patient and does not want to take metoprolol at the ordered dosage and refused morning dose due to low HR. will continue to monitor and notify primary and cardiology
[2019-07-24 11:28] VITALS: BP 126/88
[2019-07-24] MEDS ORDERED: ASPI-612 PO (11:28)
[2019-07-24] MEDS ORDERED: HYDR-2868 PO (11:28)
[2019-07-24] MEDS ORDERED: OSEL30CA PO (11:28)
[2019-07-24] MEDS ORDERED: METO25TA4 PO (11:28)
--- NOTE | 2019-07-24 11:31 | PDOC3 ---
Discharge Summary Date of Admission: Jul 21, 2019 Date of Discharge: Jul 24, 2019 Follow-Up: 3-5 days (with Dr. Renner or myself, pt will also call to schedule f/u with Dr. Gonzáles) Admitting Diagnosis comment: Acute CHF exacerbation Influenza A/B FINAL DIAGNOSIS Problems Medical Problems: (1) Acute exacerbation of CHF (congestive heart failure) Status: Acute (2) Chronic anemia Status: Acute (3) Dyspnea Status: Acute (4) Elevated troponin Status: Acute (5) Hypoxia Status: Acute (6) Influenza A Status: Acute (7) Influenza B Status: Acute (8) Renal insufficiency Status: Acute Brief Hospital Course Mr. Puri is a 78 year old male with PMH of CAD s/p CABG and stenting, HTN who presented to ED for cough and shortness of breath increasing over 2 weeks prior to admission as well as malaise and generalized weakness. He denied fevers and myalgias. He was found to have Influenza A and B on rapid testing, elevated BNP at 3849 and troponin at 0.02 but decreased on subsequent checks. He was sat'ing 86% on 3L O2 in the ED. He has a baseline requirement of O2 at night only. He was admitted for likely acute CHF exacerbation d/t Influenza. He was treated with Tamiflu and continued to improve during admission. He did have a couple periods of Afib that spontaneously resolved with no previous history of Afib. Cardiology recommended follow up for possible repeat MPI as outpt with surveillance system monitor to evaluate Afib burden after influenza was sufficiently treated. He follows with Dr. Gonzáles at the [facility], so he was encouraged to call to schedule an appt as soon as possible. For heart rate management, he was started on metoprolol 25mg BID, but this was decreased to 12.5mg BID as his heart rate was commonly in the 50s. He was also started on hydralazine for HTN control. He will follow up with Dr. Renner or myself within 1 week to follow up. No other changes to medications were made. CONDITION AT DISCHARGE: Improved, Stable Discharge Medications Potassium Chloride (Potassium Chloride) 20 Meq Tablet.er 20 Meq PO BID Furosemide 20 Mg Tablet 20 Mg PO DAILY Miralax (Polyethylene Glycol 3350) 17 Gm Powd.pack 1 Pkt PO DAILY Vitamin C (Ascorbic Acid) 500 Mg Tablet 500 Mg PO DAILY Vitamin B-6 (Pyridoxine Hcl) 100 Mg Tablet 100 Mg PO DAILY Vitamin B-12 (Cyanocobalamin (Vitamin B-12)) 1,000 Mcg Tablet 500 Mcg PO DAILY Clopidogrel (Clopidogrel Bisulfate) 75 Mg Tablet 1 Tab PO DAILY Gabapentin 600 Mg Tablet 600 Mg PO BID Finasteride 5 Mg Tablet 1 Tab PO DAILY Centrum Silver Tablet (Multivits-Min/Fa/Lycopene/Lut) 1 Each Tablet 1 Each PO DAILY Isosorbide Mononitrate Er (Isosorbide Mononitrate) 60 Mg Tab.er.24h 1 Tab PO DAILY Omeprazole 40 Mg Capsule.dr 40 Mg PO DAILY Fluoxetine Hcl 10 Mg Tablet 20 Mg PO DAILY Amlodipine Besylate 5 Mg Tablet 10 Mg PO DAILY Atorvastatin Calcium 10 Mg Tablet 10 Mg PO DAILY Tamsulosin Hcl 0.4 Mg Cap.er.24h 0.4 Mg PO HS Tamiflu PO BID to complete 5 days Metoprolol 12.5mg PO BID if HR >60 Hydralazine 25mg PO TID Vital Signs Vital Signs Date Time Temp Pulse Resp B/P (MAP) Pulse Ox O2 Delivery O2 Flow Rate FiO2 07/24/19 08:50 52 141/60 07/24/19 08:30 Room Air 07/24/19 07:00 97.6 18 96 2.0 97.6 Labs Laboratory Tests Test 07/23/19 03:10 Sodium Level 144 mmol/L (136-145) Potassium Level 3.9 mmol/L (3.5-5.1) Chloride Level 106 mmol/L (98-107) Carbon Dioxide Level 29 mmol/L (21-32) Anion Gap 9 (6-14) Blood Urea Nitrogen 32 mg/dL (8-26) Creatinine 1.8 mg/dL (0.7-1.3) Estimated GFR (Cockcroft-Gault) 36.5 Glucose Level 115 mg/dL (70-99) Calcium Level 9.1 mg/dL (8.5-10.1) Allergies Allergies Coded Allergies Type Severity Reaction Last Updated Verified hydromorphone Adverse Reaction Mild combative 01/22/18 Yes Disposition/Orders: D/C to Home ROOSEVELT CEDILLO MD Jul 24, 2019 11:31
--- NOTE | 2019-07-24 16:50 | NUR ---
Discharge Note: STALIN SUAREZ Discharge instructions and discharge home medications reviewed with Patient and Spouse and a copy given. All questions have been answered and understanding verbalized. The following instructions and handouts were given: influenza, heart failure Discontinued lines and drains: Peripheral IV intact. Patient discharged to Home or Self Care with Spouse via Wheelchair
[2019-07-26 11:10] LABS: RVP ADENOVIRUS Negative (Negative); RVP INFLUENZA A Negative (Negative); RVP INFLUENZA B Negative (Negative); RVP METAPNEUMOVIRUS Negative (Negative); RVP PARAINFLUENZA 1 Negative (Negative); RVP PARAINFLUENZA 2 Negative (Negative); RVP PARAINFLUENZA 3 Negative (Negative); RVP RHINOVIRUS Negative (Negative); RVP RSV A Negative (Negative); RVP RSV B Negative (Negative)
== END 2019-07-24 16:52 | disposition home or self-care (01) | DRG 291 ==
LOC: ER 06:38 → 1 WEST ICU 08:17 → 2 NORTH 16:52
PROVIDERS: ADMIT Family Medicine; ATTEND Family Medicine
DX: I13.0 Hypertensive heart and chronic kidney disease with heart failure and stage 1 through stage 4 chronic kidney disease, or unspecified chronic kidney disease (principal); J10.00 Influenza due to other identified influenza virus with unspecified type of pneumonia; I50.43 Acute on chronic combined systolic (congestive) and diastolic (congestive) heart failure; J96.01 Acute respiratory failure with hypoxia; N17.9 Acute kidney failure, unspecified; J44.0 Chronic obstructive pulmonary disease with (acute) lower respiratory infection; I24.8 Other forms of acute ischemic heart disease; I42.9 Cardiomyopathy, unspecified; D64.9 Anemia, unspecified; E78.5 Hyperlipidemia, unspecified; F03.90 Unspecified dementia, unspecified severity, without behavioral disturbance, psychotic disturbance, mood disturbance, and anxiety; I25.10 Atherosclerotic heart disease of native coronary artery without angina pectoris; I48.0 Paroxysmal atrial fibrillation; I73.9 Peripheral vascular disease, unspecified; N18.9 Chronic kidney disease, unspecified; N40.0 Benign prostatic hyperplasia without lower urinary tract symptoms; Z86.14 Personal history of Methicillin resistant Staphylococcus aureus infection; Z86.61 Personal history of infections of the central nervous system; Z87.891 Personal history of nicotine dependence; Z95.1 Presence of aortocoronary bypass graft; Z95.5 Presence of coronary angioplasty implant and graft; Z96.649 Presence of unspecified artificial hip joint; Z96.659 Presence of unspecified artificial knee joint; Z98.1 Arthrodesis status; K21.9 Gastro-esophageal reflux disease without esophagitis; M19.90 Unspecified osteoarthritis, unspecified site; Z88.8 Allergy status to other drugs, medicaments and biological substances
CPT/HCPCS: 36415; 36600; 71045; 80048; 80053; 80061; 82550; 82805; 83605; 83690; 83735; 83880; 84484; 85025; 85379; 85610; 87633; 87804; 93005; 93306; 94618; 94640; 96374; J1940; J7620; Q0163; 99285-25; G0378

== ENCOUNTER → 2019-08-22 | Outpatient (CLI) | payer MEDICARE ==
[2019-08-06 11:37] VITALS: BP 137/59
[~2019-08-22] MED LIST changes: +ASPI-612 PO; +HYDR-2868 PO; +METO25TA4 PO; +OSEL30CA PO
--- NOTE | 2019-08-22 16:09 | KCIC ---
EXAM: Cervical spine MRI without contrast. HISTORY: Cervical radiculopathy. TECHNIQUE: Multiplanar, multisequence magnetic resonance imaging of the cervical spine was performed without contrast. COMPARISON: 01/14/2019 FINDINGS: There is instrumented intraspinal fusion and interbody fusion at C5-C7. There is mild anterolisthesis of C4 on C5. There is degenerative endplate remodeling at all levels. There is disc space narrowing at T1-T2. There is deformation of the cervical spinal cord at multiple levels due to central canal stenosis, described in further detail below. 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 There is no fracture. There is no suspicious osseous lesion. There are suspected large bilateral pleural effusions. At C2-C3, there is a left paracentral disc protrusion. There is moderate left facet arthropathy. There is left uncovertebral arthropathy. There is moderate left foraminal stenosis. At C3-C4, there is a disc bulge and endplate osteophytosis. There is moderate bilateral facet arthropathy. There is bilateral uncovertebral arthropathy. There is severe right and moderate left foraminal stenosis. There is buckling of the ligamentum flavum. There is mild central canal stenosis measuring 8.6 mm and mild deformation of the spinal cord. At C4-C5, there is a disc bulge and endplate remodeling. There is moderate bilateral facet arthropathy. There is bilateral uncovertebral arthropathy. There is moderate bilateral foraminal stenosis. At C5-C6, there is instrumented fusion. There is bilateral posterior lateral endplate osteophytosis. There is moderate bilateral facet arthropathy. There is bilateral uncovertebral arthropathy. There is severe right and moderate to severe left foraminal stenosis. There is no central canal stenosis. At C6-C7, there is instrumented fusion. There is mild bilateral facet arthropathy. There is no stenosis. At C7-T1, there is a disc bulge. There is no stenosis. At T1-T2, there is a disc bulge and endplate osteophytosis. There is bilateral facet arthropathy. There is mild right and moderate left foraminal stenosis. IMPRESSION: 1. Instrumented fusion at C5-C7. 2. Multilevel degenerative change involving the cervical spine, described in detail above. These findings are not signally changed compared to the prior exam and contributing to foraminal and central canal stenosis at the aforementioned levels. 3. Suspected large bilateral pleural effusions. Electronically signed by: Beatrice Mcclelland MD (08/22/2019 4:06 PM) [id number]
== END ==
LOC: KCIC MRI 14:06
PROVIDERS: ATTEND Neurological Surgery
DX: M47.23 Other spondylosis with radiculopathy, cervicothoracic region (principal); M48.03 Spinal stenosis, cervicothoracic region; M43.22 Fusion of spine, cervical region
CPT/HCPCS: 72141

== ENCOUNTER → 2019-09-21 | Outpatient (CLI) | payer MEDICARE ==
[2019-08-30 11:10] VITALS: BP 121/78
[~2019-09-21] MED LIST changes: +FURO40TA4 PO; +METO-239 PO
--- NOTE | 2019-09-21 09:52 | PAIN ---
DATE OF SERVICE: 09/21/2019 PROGRESS NOTE FOR PAIN CLINIC DIAGNOSES: 1. Lumbar radiculopathy with lumbar degenerative disk disease and lumbar post-laminectomy syndrome. 2. Cervical radiculopathy with cervical degenerative disk disease with cervical spinal stenosis and post-cervical laminectomy syndrome. HISTORY OF PRESENT ILLNESS: The patient is an 78-year-old male who returns for followup status post previous caudal epidural steroid injections, last seen in 01/2017. The patient did very well with the injections, but his main complaint now is neck and bilateral shoulder and upper extremity pain. The patient has recently seen his neurosurgeon recommending conservative therapy at this time and no further surgeries. Had an anterior fusion in the past. The patient reports the pain in the base of neck and shoulders, upper extremities, right and left essentially equal, becoming more constant pain, worse with repetitive motions, lifting items. The patient reports no loss of complete strength, but very often has fatigability in the upper extremity. He has been dropping some items, especially with his left hand. The patient reports it generally does not awaken him from sleep, but can sometimes, most nights he sleeps about 8 hours at a time. He needs to reposition and get back to sleep without difficulty. The patient reports no other complaints, rates his pain as 7 on a scale of 10 at its worst in the past week, 3 on average, 3 at its least and is a 3 today. The patient reports it is becoming more constant, aching, shooting, sharp and dull across the shoulders and arms into the elbows and more into the forearm on the right hand than the left. The patient reports no other changes. PHYSICAL EXAMINATION: VITAL SIGNS: The patient's blood pressure 110/60, pulse 55, respirations 18, temperature 97.6 degrees Fahrenheit, height is 5 feet 8 inches, weight is 172 pounds. GENERAL: The patient is awake, alert, oriented, appropriate, very pleasant demeanor. HEENT: Head shows normocephalic, atraumatic. Extraocular movements are intact and symmetrical. Oral cavity: Mucous membranes moist and pink. NECK: Shows anterior throat supple. CHEST: Shows normal on inspection. Breath sounds are clear bilaterally. HEART: Shows S1, S2 clear. ABDOMEN: Obese, soft, nontender, nondistended. BACK: Shows spine grossly in the midline, slight flattening of cervical lordotic curvature, normal thoracic kyphotic curvature and some flattening of lumbar lordotic curvature. Well-healed surgical scar noted in the lumbar distribution. Cervical paraspinous muscle shows symmetrical on inspection, with palpation some moderate tenderness diffusely in the middle and lower distributions of the cervical paraspinous musculature into the superior medial trapezius, slightly more on the left than the right, but present bilaterally. No specific trigger points, no radiation. The patient has good rotational motion of cervical spine, both laterally greater than 45 degrees right and left as well as extension and forward flexion without significant increase in pain. EXTREMITIES: Upper extremities show deep tendon reflexes at 2+ in the biceps and triceps tendons. Motor exam is 5/5 with mill dresser strength, bicep and tricep flexion. Shoulder shrug is strong and intact without loss of strength on resistance bilaterally. The patient's peripheral pulses are 2+ radial. No peripheral edema is noted bilaterally. The patient also had an MRI scan dated 08/22/2019 showing instrumented fusion at C5 through C7. Multilevel degenerative change involving the cervical spine, not significantly changed compared to the prior exam of 01/2019 with severe right and [id number] left neural foraminal stenosis at C5-C6 and moderate bilateral foraminal stenosis at C4-C5 as well as severe right and moderate left foraminal stenosis at C3-C4. PLAN: Options were discussed with the patient. The patient's old chart was reviewed as his current medication regimen updated. Current review of systems updated today as well. We will check with the patient's regulatory internship to clear of holding his Plavix for 7 days as he has done in the past. This seems to be deemed safe and appropriate, we will have him return after holding it for a cervical epidural steroid injection. We described the procedure using description as well as anatomical models. The patient is interested in proceeding. I will check with regulatory internship regarding holding his Plavix and have him return at that time. MARTIN RAMSAY MD DR: FARRAH/edmundo JOB#: [id number] / [id number]
== END ==
LOC: PNCL 08:45
PROVIDERS: ATTEND Anesthesiology
DX: M51.16 Intervertebral disc disorders with radiculopathy, lumbar region (principal); M50.10 Cervical disc disorder with radiculopathy, unspecified cervical region; M96.1 Postlaminectomy syndrome, not elsewhere classified; M48.02 Spinal stenosis, cervical region
CPT/HCPCS: G0463

== ENCOUNTER → 2019-10-05 | Outpatient (CLI) | payer MEDICARE ==
[2019-08-30 11:10] VITALS: BP 121/78
[~2019-10-05] MED LIST changes: +IOHEXOL 180 MG/ML 10 ML VIAL. ONE; +methylPREDNISolone ACETATE 40 MG/ML VIAL. ONE; +methylPREDNISolone ACETATE 80 MG/ML VIAL. ONE
--- NOTE | 2019-10-05 09:56 | PAIN ---
DATE OF SERVICE: 10/05/2019 PROGRESS NOTE FOR PAIN CLINIC DIAGNOSES: 1. Cervical radiculopathy with cervical degenerative disk disease and cervical spinal stenosis and cervical post-laminectomy syndrome. 2. Lumbar radiculopathy with lumbar degenerative disk disease and lumbar post-laminectomy syndrome. 3. Right hip joint pain with primary osteoarthritis. HISTORY OF PRESENT ILLNESS: The patient is an 79-year-old male who returns for followup status post evaluation and preauthorization to hold his Plavix. The patient has achieved this permission from his associate pastor and has been off his Plavix now for 7 days. The patient reports still significant pain in the base of the neck and shoulders, upper extremities, essentially right equal to left. No new motor or sensory deficits, no new changes, but still significant pain with walking, standing, changing positions, using his arms over his head, repetitive motions, lifting items with his arms, driving a car. The patient reports it is a 5 on a scale of 10 at its worst over the past week, 3 on average, 3 at its least and is a 3 today. The patient describes the pain as tingling, burning, aching, shooting and becoming more constant in the upper extremity as well as the base of the neck, disturbing his sleep about every 3 hours. The patient reports no new motor or sensory deficits, no new changes. PHYSICAL EXAMINATION: VITAL SIGNS: The patient's blood pressure 119/61, pulse 57, respirations 18, temperature 98.1 degrees Fahrenheit, height is 5 feet 8 inches, weight is 176 pounds. GENERAL: The patient is awake, alert, oriented, appropriate, very pleasant demeanor. HEENT: Exam shows normocephalic, atraumatic. Extraocular movements are intact and symmetrical. Oral cavity shows mucous membranes moist and pink. Dentition is intact. NECK: Shows anterior throat supple without palpable lymphadenopathy noted. Swallow reflex symmetrical. CHEST: Shows normal on inspection. Breath sounds are clear bilaterally. HEART: Shows S1, S2 clear. No murmurs auscultated. ABDOMEN: Soft, nontender, nondistended. BACK: Shows spine grossly in the midline, normal-appearing cervical lordotic curvature, slight increase in thoracic kyphosis and minor flattening of lumbar lordotic curvature. Well-healed surgical scar noted. Cervical paraspinous muscle shows symmetrical on inspection, on palpation shows some moderate tenderness diffusely bilaterally, but only diffusely without significant radiation. The patient does show good rotational motion of cervical spine, both laterally as well as extension and flexion without significant increase in pain. EXTREMITIES: The patient's upper extremities show deep tendon reflexes at 1+ in the biceps and triceps tendons and equal. Motor exam is 5/5 animal nutritionist strength, bicep and tricep flexion and symmetrical. Peripheral pulses are 2+ radial. No peripheral edema is noted bilaterally. Options were discussed with the patient. The patient's old chart was reviewed as his current medication regimen updated. Current review of systems updated today as well. We will proceed with a cervical epidural steroid injection with the first in the series today with fluoroscopic guidance. Risks were again discussed including, but not limited to bleeding, infection, possibility of epidural hematoma, subsequent neurological compromise, dural puncture, headaches, spinal cord and/or nerve damage, side effects of steroid medication and poor results regarding pain control. The patient understands and wished to proceed. The patient will return to clinic in approximately 2 weeks for followup. He was counseled on return appointment, activity level and side effects to be aware of. DIAGNOSES: Cervical radiculopathy with cervical degenerative disk disease and cervical spinal stenosis and cervical post-laminectomy syndrome. PROCEDURE: Cervical epidural steroid injection, translaminar approach C6-C7 level using C-arm fluoroscopic guidance under sterile prep and drape using local anesthetic. MEDICATION INJECTED: A total of 120 mg Depo-Medrol plus 5 mL of preservative-free normal saline and 2 mL of contrast. CONDITION AT DISCHARGE: Stable. The patient tolerated procedure well, had no complications. MARTIN RAMSAY MD DR: FARRAH/edmundo JOB#: [id number] / [id number]
== END ==
LOC: PNCL 09:02
PROVIDERS: ATTEND Anesthesiology
DX: M50.123 Cervical disc disorder at C6-C7 level with radiculopathy (principal); M48.02 Spinal stenosis, cervical region; M96.1 Postlaminectomy syndrome, not elsewhere classified
CPT/HCPCS: 62321; J1030; J1040; Q9965

== ENCOUNTER → 2019-10-18 | Outpatient (CLI) | payer MEDICARE ==
[2019-08-30 11:10] VITALS: BP 121/78
[~2019-10-18] MED LIST changes: -ASCO500T2 PO; +ASCO500T4 PO; -IOHEXOL 180 MG/ML 10 ML VIAL. ONE; -methylPREDNISolone ACETATE 40 MG/ML VIAL. ONE; -methylPREDNISolone ACETATE 80 MG/ML VIAL. ONE
--- NOTE | 2019-10-18 14:48 | RAD ---
LUMBAR SPINE WO CONTRAST Date: 10/18/2019 1:00 PM Indication: Low back pain with leg weakness Comparison: 12/23/2017. Technique: Multi-planar multi-weighted magnetic resonance imaging of the lumbar spine was performed without intravenous contrast using the standard lumbar spine protocol. FINDINGS: Postsurgical changes of posterior decompression at L1-2, and posterior decompression with posterior instrumentation at L3-S1. Straightening of the lumbar lordosis. No acute fracture. Moderate multilevel degenerative disc desiccation and disc height loss, severe at L1-2. Degenerative endplate edema at L1-2, progressed from the prior. The conus terminates at a normal level. No abnormal signal is seen within the visualized distal spinal cord. Bilateral renal cysts. T12-L1: No disc bulge. No facet arthropathy. No significant spinal stenosis or neural foraminal narrowing. L1-L2: Interval posterior decompression. Disc bulge. Moderate facet arthropathy. Ligamentum flavum thickening. Moderate spinal stenosis and lateral recess narrowing. Moderate to severe bilateral neural foraminal narrowing. L2-L3: Disc bulge. Moderate facet arthropathy. Mild spinal stenosis. Moderate right and mild left lateral recess narrowing, progressed from the prior. Moderate right and mild left neural foraminal narrowing. L3-L4: Right hemilaminectomy. No spinal canal stenosis. Mild to moderate neural foraminal narrowing. L4-L5: Bilateral laminectomies. No spinal canal stenosis. Mild left lateral recess narrowing. Mild and moderate left neural foraminal narrowing. L5-S1: Right hemilaminectomy. No spinal canal stenosis. Moderate neural foraminal narrowing. IMPRESSION: Moderate to severe lumbar spondylosis, detailed level by level above. Electronically signed by: Jordan Cisneros MD (10/18/2019 2:45 PM) [id number]
== END | disposition home or self-care (01) ==
LOC: MRI 12:55
PROVIDERS: ATTEND Neurological Surgery
DX: M47.26 Other spondylosis with radiculopathy, lumbar region (principal); M48.07 Spinal stenosis, lumbosacral region; M40.46 Postural lordosis, lumbar region; M12.88 Other specific arthropathies, not elsewhere classified, other specified site
CPT/HCPCS: 72148

== ENCOUNTER → 2019-10-21 | Outpatient (CLI) | payer MEDICARE ==
[2019-08-30 11:10] VITALS: BP 121/78
[~2019-10-21] MED LIST changes: +IOHEXOL 180 MG/ML 10 ML VIAL. ONE; +methylPREDNISolone ACETATE 40 MG/ML VIAL. ONE; +methylPREDNISolone ACETATE 80 MG/ML VIAL. ONE
--- NOTE | 2019-10-21 10:10 | PAIN ---
DATE OF SERVICE: 10/21/2019 PROGRESS NOTE FOR PAIN CLINIC DIAGNOSES: Cervical radiculopathy with cervical degenerative disk disease with cervical spinal stenosis and cervical post-laminectomy syndrome. HISTORY OF PRESENT ILLNESS: The patient is an 79-year-old male who returns for followup status post cervical epidural steroid injection x 1, last seen 10/10/2019. The patient reports he did well for a few days, but the pain returned, no overall improvement significantly long-term. The patient reports still pain in the base of the neck, left upper extremity, shoulder, worse with activity, reaching over his head with his left arm, repetitive motions or weightbearing with left arm. The patient reports it is a 6 on a scale of 10 at its worst over the past week, 3 on average, 3 at its least and is a 3 today. The patient reports it is aching, tingling, constant, awaken him from sleep at night occasionally, but not most nights. The patient reports no new motor or sensory deficits, no new bowel or bladder incontinence or other complaints. PHYSICAL EXAMINATION: VITAL SIGNS: The patient's blood pressure 135/73, pulse 60, respirations 16, temperature 97.4 degrees Fahrenheit, weight is 177 pounds. GENERAL: The patient is awake, alert, oriented, appropriate, very pleasant demeanor. HEENT: Shows normocephalic, atraumatic. The patient is wearing eyeglasses. Extraocular movements are intact and symmetrical. Oral cavity: Mucous membranes moist and pink. Dentition is intact. NECK: Shows anterior throat supple without palpable lymphadenopathy noted. Swallow reflex symmetrical. CHEST: Shows normal on inspection. Breath sounds clear bilaterally. HEART: Shows S1, S2 clear. No murmurs auscultated. ABDOMEN: Soft, nontender, nondistended. No palpable organomegaly is noted. No rebound or guarding demonstrated. BACK: Shows spine grossly in the midline, slight flattening of cervical lordotic curvature as well as some minor increase in thoracic kyphosis and flattening of lumbar lordotic curvature with well-healed surgical scar noted. Cervical paraspinous muscle shows symmetrical on inspection, on palpation shows some moderate tenderness diffusely bilaterally throughout the upper, middle and lower distribution of the paraspinous muscles, more on the left into the superior medial and lateral trapezius than the right, but without specific radiation. The patient has good rotational motion, slightly guarded with extension, right and left lateral rotation, but performed fully greater than 45 degrees right and left full extension, full forward flexion without significant pain reported. EXTREMITIES: The patient's upper extremities show deep tendon reflexes at 1+ in the biceps and triceps tendons. Motor exam is strong with 5/5 risk modeler strength, bicep and tricep flexion and symmetrical. Peripheral pulses are 2+ radial. No peripheral edema is noted. Options were discussed with the patient. The patient's old chart was reviewed as his current medication regimen updated. Current review of systems updated today as well and we will proceed with a second in a series of cervical epidural steroid injection today with fluoroscopic guidance. Risks were again discussed including, but not limited to bleeding, infection, possibility of epidural hematoma, subsequent neurologic compromise, dural puncture, headaches, spinal cord and/or nerve damage, side effects of steroid medication and poor results regarding pain control. The patient understands and wished to proceed. The patient will return to clinic in approximately 2 weeks for followup. He was counseled on return appointment, activity level and side effects to be aware of. DIAGNOSES: Cervical radiculopathy with cervical degenerative disk disease and cervical spinal stenosis and cervical post-laminectomy syndrome. PROCEDURE: Cervical epidural steroid injection, translaminar approach C6-C7 level using C-arm fluoroscopic guidance under sterile prep and drape using local anesthetic. MEDICATION INJECTED: A total of 120 mg Depo-Medrol plus 5 mL of preservative-free normal saline and 2 mL of contrast. CONDITION AT DISCHARGE: Stable. The patient tolerated procedure well, had no complications. MARTIN RAMSAY MD DR: FARRAH/edmundo JOB#: [id number] / [id number]
== END | disposition home or self-care (01) ==
LOC: PNCL 08:49
PROVIDERS: ATTEND Anesthesiology
DX: M50.123 Cervical disc disorder at C6-C7 level with radiculopathy (principal); M48.02 Spinal stenosis, cervical region; M96.1 Postlaminectomy syndrome, not elsewhere classified; Z98.890 Other specified postprocedural states; Z88.8 Allergy status to other drugs, medicaments and biological substances
CPT/HCPCS: 62321; J1030; J1040; Q9965

== ENCOUNTER → 2019-11-11 | Outpatient (CLI) | payer MEDICARE ==
[2019-08-30 11:10] VITALS: BP 121/78
--- NOTE | 2019-11-11 10:40 | PAIN ---
DATE OF SERVICE: 11/11/2019 PROGRESS NOTE FOR PAIN CLINIC DIAGNOSES: 1. Cervical radiculopathy with cervical degenerative disk disease, cervical spinal stenosis and post-cervical laminectomy syndrome. 2. Lumbar radiculopathy with lumbar degenerative disk disease and lumbar post-laminectomy syndrome. 3. Right hip joint pain with primary osteoarthritis. HISTORY OF PRESENT ILLNESS: The patient is an 79-year-old male who returns for followup status post cervical epidural steroid injections x 2, most recently 10/21/2019, the patient did very well with about 50% improvement with the base of the neck and shoulders, still some pain in the left side greater than the right, but decreasing significantly. The patient reports not as nearly as much pain in the arms, just in the base of the neck and shoulders. The patient reports it is a 6 on a scale of 10 at its worst over the past week, 4 on average, 3 at its least and is a 4 today. The patient reports it is shooting and tingling into the left arm and shoulder, but only minimally and mostly just in the base of the neck. The patient reports it is aching and dull, but aching as well with activity. Otherwise, the patient is doing much better with distance walking, doing household activities, traveling with greater ease and comfort, sleeping better at night, still awakens him from sleep every few hours. The patient reports no new motor or sensory deficits, no new bowel or bladder incontinence or other complaints. PHYSICAL EXAMINATION: VITAL SIGNS: The patient's blood pressure 120/54, pulse 52, respirations 18, temperature 97.7 degrees Fahrenheit, height is 5 feet 8 inches and weight is 178 pounds. GENERAL: The patient is awake, alert, oriented, appropriate, very pleasant demeanor. HEENT: Shows normocephalic, atraumatic. Extraocular movements are intact and symmetrical. Oral cavity: Mucous membranes moist and pink. Dentition is intact. NECK: Shows anterior throat supple without palpable lymphadenopathy noted. Swallow reflex symmetrical. CHEST: Shows normal on inspection. Breath sounds are clear bilaterally. HEART: Shows S1, S2 clear. No murmurs auscultated. ABDOMEN: Soft, nontender, nondistended. No palpable organomegaly is noted. There is no rebound or guarding demonstrated. BACK: Shows spine grossly in the midline. Cervical lordotic curvature slightly flattened as increased thoracic kyphosis noted and some slight flattening of lumbar lordotic curvature with well-healed surgical scar. Cervical paraspinous muscle shows symmetrical on inspection, with palpation shows some moderate tenderness diffusely, more on the left than the right superior medial trapezius as well as inferior cervical paraspinous musculature compared to the right, but good rotational motion both laterally as well as extension and flexion without significant limitation with the cervical spine. EXTREMITIES: The patient's upper extremities show deep tendon reflexes 1+ in the biceps, triceps tendons. Motor exam is 5/5 with chute man strength, bicep and tricep flexion and symmetrical. Peripheral pulses are 2+ radial. No peripheral edema is noted bilaterally. Options were discussed with the patient. The patient's old chart was reviewed as his current medication regimen updated. Current review of systems updated today as well. We will proceed with a third in a series of cervical epidural steroid injection today with fluoroscopic guidance. Risks were again discussed including, but not limited to bleeding, infection, possibility of epidural hematoma, subsequent neurological compromise, dural puncture, headaches, spinal cord and/or nerve damage, side effects of steroid medication and poor results regarding pain control. The patient understands and wished to proceed. The patient will return to clinic in approximately 2 weeks for followup. He was counseled on return appointment, activity level and side effects to be aware of. DIAGNOSES: Cervical radiculopathy with cervical degenerative disk disease, cervical spinal stenosis and cervical post-laminectomy syndrome. PROCEDURE: Cervical epidural steroid injection, translaminar approach at C6-C7 level using C-arm fluoroscopic guidance under sterile prep and drape using local anesthetic. MEDICATION INJECTED: A total of 120 mg Depo-Medrol plus 5 mL of preservative-free normal saline and 2 mL of contrast. CONDITION AT DISCHARGE: Stable. The patient tolerated procedure well, had no complications. MARTIN RAMSAY MD DR: FARRAH/edmundo JOB#: [id number] / [id number]
== END ==
LOC: PNCL 08:21
PROVIDERS: ATTEND Anesthesiology
DX: M50.123 Cervical disc disorder at C6-C7 level with radiculopathy (principal); M48.02 Spinal stenosis, cervical region; M96.1 Postlaminectomy syndrome, not elsewhere classified
CPT/HCPCS: 62321; J1030; J1040; Q9965

== ENCOUNTER 2019-11-24 10:30 | Inpatient (IN) | payer MEDICARE ==
[2019-11-24] VITALS (13 sets, daily range): BP systolic 130–172; BP diastolic 57–78
[~2019-11-24] VITALS: Ht 172.7 cm; Wt 75.9 kg
[~2019-11-24 10:30] MED LIST changes: -IOHEXOL 180 MG/ML 10 ML VIAL. ONE; -methylPREDNISolone ACETATE 40 MG/ML VIAL. ONE; -methylPREDNISolone ACETATE 80 MG/ML VIAL. ONE
--- NOTE | 2019-11-24 11:03 | PHYS DOC ---
Past Medical History Past Medical History: CAD, CHF, Hypertension, Renal Disease, Other Additional Past Medical Histor: peripheral neuropathy, meningitis, sleep apnea,urinary retention Past Medical History pleural effusion Past Surgical History: Angioplasty, Coronary Bypass Surgery, Hip Replacement, Knee Replacement, Other Additional Past Surgical Histo: several back surgeries,HEMORRHOID, SINUS,NECK,CARDIAC STENTS, Thoracentesis Smoking Status: Former Smoker Alcohol Use: None Drug Use: None General Adult EDM: Chief Complaint: SHORTNESS OF BREATH HPI: HPI: Patient is a 79 year old male with past medical history of CAD as well as CHF presents with report of progressive dyspnea with associated "dry, deep cough" that has been ongoing for the past several days. Patient does report dyspnea on exertion and sensation that he is retaining fluid. Patient was admitted for similar earlier this year. Patient denies fever. Denies known exposure to COVID-19. Patient reports use of home oxygen at baseline during the night at 3 L via nasal cannula. Denies trauma. Denies calf pain. Denies chest pain. Review of Systems: Review of Systems: Constitutional: Denies fever or chills Eyes: Denies redness or eye pain HENT: Denies nasal congestion or sore throat Respiratory: Reports cough, dyspnea with exertion, and shortness of breath Cardiovascular: Denies chest pain or palpitations GI: Denies abdominal pain, nausea, or vomiting : Denies dysuria or hematuria; reports decreased urination Musculoskeletal: Denies back pain or joint pain Integument: Denies rash or skin lesions Neurologic: Denies headache, focal weakness or sensory changes Complete systems were reviewed and found to be within normal limits, except as documented in this note. Allergies: Allergies: Allergies Coded Allergies Type Severity Reaction Last Updated Verified hydromorphone Adverse Reaction Mild combative 01/22/18 Yes Physical Exam: PE: Constitutional: Well developed, well nourished, no acute distress, non-toxic appearance HENT: Normocephalic, atraumatic Eyes: Conjunctiva normal, no discharge Neck: Normal range of motion, no tenderness, supple Cardiovascular: Heart rate normal, regular rhythm Lungs & Thorax: Rales to RLL, no respiratory distress, no wheezing Abdomen: Soft, no tenderness Skin: Warm, dry, no erythema, no rash Extremities: No tenderness, ROM intact, 1+ BLE edema Neurologic: Alert and oriented X 3, no focal deficits noted Psychologic: Affect normal, judgment normal EKG: EKG: @1046 Sinus bradycardia at 54bpm, NO ST elevation, Q wave in III and V1, QRS 78ms, QT/QTc 432/411ms Radiology/Procedures: Radiology/Procedures: PROCEDURE: PORTABLE CHEST 1V EXAM: PORTABLE CHEST 1V 11/24/2019 10:59 AM CLINICAL INDICATION:Shortness of air COMPARISON:Chest radiograph 08/26/2019 TECHNIQUE:AP upright view of the chest FINDINGS:Surgical changes of median sternotomy and moderate cardiomegaly redemonstrated. There are bilateral coarse interstitial opacities, similar to prior exam. Probable small right pleural effusion. No pneumothorax. Lower cervical fusion hardware is noted. IMPRESSION:Cardiomegaly with mild pulmonary edema and probable small right pleural effusion, similar to prior exam. Electronically signed by: Lola Portillo MD (11/24/2019 11:51 AM) [id number] Course & Med Decision Making: Course & Med Decision Making Pertinent Labs and Imaging studies reviewed. (See chart for details) Patient presents with progressive dyspnea particularly on exertion. Patient with known CHF. Reports symptoms similar to prior exacerbation of CHF. Patient noted to be hypoxic down to mid 80% on room air upon arrival. Patient placed on 3 L supplemental O2 via nasal cannula (which is his nighttime requirement) with interval improvement. EKG stable. Labs obtained and posted to chart. Initial troponin within normal limits. BNP elevated. Creatinine elevated from prior per [employer] review. Chest x-ray with increased vascular congestion and right- sided pleural effusion. Bumex therefore provided. Aspirin also given. Patient requiring admission for further evaluation and treatment. Discussed with Dr. Renner (PCP) who is in agreement with admission. Discussed findings and plan with patient, who acknowledges understanding and agreement. Dragon Disclaimer: [employer] Disclaimer: This electronic medical record was generated, in whole or in part, using a voice recognition dictation system. Departure Departure Impression: Primary Impression: Acute exacerbation of CHF (congestive heart failure) Qualified Codes: I50.9 - Heart failure, unspecified Additional Impressions: Acute on chronic renal insufficiency Hypoxia Disposition: ADMITTED INPATIENT Admitting Physician: Doug Renner Condition: GUARDED Referrals: DOUG RENNER MD (PCP) Justicifation of Admission Dx: Justifications for Admission: Justification of Admission Dx: Yes CHF: Hemodynamic Instability (Hypoxia) Comments: CHF with change in supplemental O2 requirement. Worsening CHF Critical Care Time Critical care time was 30 minutes which includes time at bedside, spent in discussion of patient's care with specialists and/or family members, with interpretation of laboratory and/or radiological studies and is exclusive of procedures. SHILO LANDAVERDE DO Nov 24, 2019 11:03
--- NOTE | 2019-11-24 11:04 | EKG ---
[facility] [address] [place] [address] Test Date: 2019-11-24 Test Time: 10:46:30 Pat Name: STALIN SUAREZ Department: Room: Gender: M Deputy Sheriff: : [id number] Requested By: SHILO LANDAVERDE Order Number: [id number] Reading MD: Enoc Avelar Measurements Intervals Teller Rate: 54 P: 22 ME: 162 QRS: 13 QRSD: 78 T: 68 QT: 432 QTc: 411 Interpretive Statements SINUS RHYTHM T WAVE ABNORMALITY Electronically Signed On 11-25-2019 16:39:59 CDT by Enoc Avelar
[2019-11-24 11:13] LABS: BASO % 0 % (0-3); EOS # 0.2 x10^3/uL (0.0-0.7); EOS % 3 % (0-3); HEMATOCRIT 26.7 % (39.0-53.0); HEMOGLOBIN 8.7 g/dL (13.0-17.5); LYMPH # 0.7 x10^3/uL (1.0-4.8); LYMPH % 10 % (24-48); MEAN CORPUSCULAR HEMOGLOBIN 25 pg (25-35); MEAN CORPUSCULAR HGB CONC 32 g/dL (31-37); MEAN CORPUSCULAR VOLUME 77 fL (79-100); MONO # 0.6 x10^3/uL (0.0-1.1); MONO % 8 % (0-9); NEUT # 5.8 x10^3/uL (1.8-7.7); NEUT % 79 % (31-73); PLATELET COUNT 160 x10^3/uL (140-400); RED BLOOD COUNT 3.46 x10^6/uL (4.30-5.70); RED CELL DISTRIBUTION WIDTH 18.5 % (11.5-14.5); WHITE BLOOD COUNT 7.4 x10^3/uL (4.0-11.0)
[2019-11-24] MEDS ORDERED: ASPIRIN 325 MG TABLET PO ONE (11:15)
[2019-11-24 11:28] LABS: CALCIUM 8.3 mg/dL (8.5-10.1); CREATININE 2.4 mg/dL (0.7-1.3); GFR 26.1; POTASSIUM 4.5 mmol/L (3.5-5.1)
[2019-11-24 11:33] LABS: ALBUMIN 2.8 g/dL (3.4-5.0); ALBUMIN/GLOBULIN RATIO 0.9 (1.0-1.7); MAGNESIUM 2.1 mg/dL (1.8-2.4); TOTAL BILIRUBIN 0.8 mg/dL (0.2-1.0); TOTAL PROTEIN 5.9 g/dL (6.4-8.2)
[2019-11-24 11:47] LABS: CREATINE KINASE 42 U/L (39-308)
--- NOTE | 2019-11-24 11:54 | RAD ---
EXAM: PORTABLE CHEST 1V 11/24/2019 10:59 AM CLINICAL INDICATION:Shortness of air COMPARISON:Chest radiograph 08/26/2019 TECHNIQUE:AP upright view of the chest FINDINGS:Surgical changes of median sternotomy and moderate cardiomegaly redemonstrated. There are bilateral coarse interstitial opacities, similar to prior exam. Probable small right pleural effusion. No pneumothorax. Lower cervical fusion hardware is noted. IMPRESSION:Cardiomegaly with mild pulmonary edema and probable small right pleural effusion, similar to prior exam. Electronically signed by: Lola Portillo MD (11/24/2019 11:51 AM) [id number]
[2019-11-24 12:00] LABS: BILIRUBIN,URINE NEGATIVE (NEG); CLARITY,URINE CLEAR; COLOR,URINE YELLOW; NITRITE,URINE NEGATIVE (NEG); PROTEIN,URINE NEGATIVE (NEG-TRACE); UROBILINOGEN,URINE 0.2 mg/dL (0.2 mg/dL)
[2019-11-24 12:05] LABS: BACTERIA,URINE 0 /HPF (0-FEW); HYALINE CASTS, URINE OCCASIONAL /HPF; RBC,URINE 0 /HPF (0-2); WBC,URINE OCC /HPF (0-4)
[2019-11-24] MEDS ORDERED: ONDANSETRON PF 4 MG/2 ML VIAL. IV PRN (13:15)
[2019-11-24] MEDS ORDERED: BUMETANIDE 1 MG/4 ML VIAL. IV ONE (13:15)
--- NOTE | 2019-11-24 13:47 | PDOC2 ---
TAHMINA LINDO CHAIR MECHANIC 11/24/19 1347: CARDIAC CONSULT DATE OF CONSULT Date of Consult DATE: 11/24/19 TIME: 13:35 REASON FOR CONSULT Reason for Consult: CHF REFERRING PHYSICIAN Referring Physician: Vinod SOURCE Source: Chart review, Patient HISTORY OF PRESENT ILLNESS HISTORY OF PRESENT ILLNESS This is a pleasant 79 yo male admitted for complains of shortness of breath. He is a poor historian so I discussed his symptom details with his . Reports that in the last few days he has been coughing more nonproductive and also feeling SOA and has been sleeping more. No chest pain but he did have some dizziness 2 days ago that made him fall and scrape his knee but could not ascertain if there is associated vertigo. He did got to his PCP Thursday and his norvasc was cut in half. 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 He possibly drinks about 6-8 bottles of flavored water a day but this has been clear as she has not been buying as much due to decreased consumption . He has been more forgetful lately. No fever or chills. At home he has been using 20 mg of lasix daily and at times increasing to 40 daily. Currently he is laying flat at rest without SOA and no significant peripheral edema, and no chest pain. PAST MEDICAL HISTORY Past Medical History Cardiovascular: CAD, CHF, HTN, NC, HLP Pulmonary: Bronchitis, respiratory failure with previously Intubated, COPD? CENTRAL NERVOUS SYSTEM: Dementia, Peripheral neuropathy, meningitis GI: GERD MSK: OA, low back pain, severe spinal stenosis Rheumatologic: No pertinent hx Infectious disease: MRSA ENT: sinusitis, cataract Renal/: Chronic renal insuff, BPH Endocrine: No pertinent hx Dermatology: No pertinent hx PAST SURGICAL HISTORY Past Surgical History CABG (2000), Cataract Removal, Total hip replacement, Total knee replacement, Other (PCI stent placement; oral and sinus surgery; low back fusion) FAMILY HISTORY Family History noncontributory SOCIAL HISTORY Social History Smoke: Quit ALCOHOL: none Drugs: None Lives: with Family CURRENT MEDICATIONS CURRENT MEDICATIONS Current Medications Medications (Trade) Dose Ordered Sig/Holden Route PRN Reason Start Time Stop Time Status Last Admin Dose Admin Aspirin (Fransisco Aspirin) 325 mg 1X ONCE PO 11/24/19 11:15 11/24/19 11:16 DC 11/24/19 11:41 Bumetanide (Bumex) 1 mg 1X ONCE IV 11/24/19 13:15 11/24/19 13:16 DC 11/24/19 13:04 ALLERGIES ALLERGIES: Coded Allergies: No Known Medication Allergies (Verified Allergy, Unknown, 11/24/19) hydromorphone (Verified Adverse Reaction, Mild, combative, 01/22/18) ROS Review of System limited, poor historian PHYSICAL EXAM General: Alert, Oriented X3, Cooperative, No acute distress Heart: Regular rate (SR), Other (3/6 apical systolic murmur) Abdomen: Soft, No tenderness Extremities: No cyanosis, No edema Skin: No breakdown, No significant lesion Neuro: Normal speech, Sensation intact Psych/Mental Status: Mental status NL, Other (anxious) MUSCULOSKELETAL: Osteoarthritic changes both hands VITALS/I&O VITALS/I&O: Vital Signs Date Time Temp Pulse Resp B/P (MAP) Pulse Ox O2 Delivery O2 Flow Rate FiO2 11/24/19 10:36 98.2 62 23 121/78 (92) 93 Nasal Cannula 3.0 98.2 LABS Lab: Laboratory Tests Test 11/24/19 11:00 11/24/19 11:50 White Blood Count 7.4 x10^3/uL (4.0-11.0) Red Blood Count 3.46 x10^6/uL (4.30-5.70) L Hemoglobin 8.7 g/dL (13.0-17.5) L Hematocrit 26.7 % (39.0-53.0) L Mean Corpuscular Volume 77 fL (79-100) L Mean Corpuscular Hemoglobin 25 pg (25-35) Mean Corpuscular Hemoglobin Concent 32 g/dL (31-37) Red Cell Distribution Width 18.5 % (11.5-14.5) H Platelet Count 160 x10^3/uL (140-400) Neutrophils (%) (Auto) 79 % (31-73) H Lymphocytes (%) (Auto) 10 % (24-48) L Monocytes (%) (Auto) 8 % (0-9) Eosinophils (%) (Auto) 3 % (0-3) Basophils (%) (Auto) 0 % (0-3) Neutrophils # (Auto) 5.8 x10^3/uL (1.8-7.7) Lymphocytes # (Auto) 0.7 x10^3/uL (1.0-4.8) L Monocytes # (Auto) 0.6 x10^3/uL (0.0-1.1) Eosinophils # (Auto) 0.2 x10^3/uL (0.0-0.7) Basophils # (Auto) 0.0 x10^3/uL (0.0-0.2) Prothrombin Time 14.0 SEC (11.7-14.0) Prothrombin Time INR 1.1 (0.8-1.1) Activated Partial Thromboplast Time 33 SEC (24-38) Sodium Level 143 mmol/L (136-145) Potassium Level 4.5 mmol/L (3.5-5.1) Chloride Level 107 mmol/L (98-107) Carbon Dioxide Level 28 mmol/L (21-32) Anion Gap 8 (6-14) Blood Urea Nitrogen 43 mg/dL (8-26) H Creatinine 2.4 mg/dL (0.7-1.3) H Estimated GFR (Cockcroft-Gault) 26.1 BUN/Creatinine Ratio 18 (6-20) Glucose Level 129 mg/dL (70-99) H Lactic Acid Level 1.1 mmol/L (0.4-2.0) Calcium Level 8.3 mg/dL (8.5-10.1) L Magnesium Level 2.1 mg/dL (1.8-2.4) Total Bilirubin 0.8 mg/dL (0.2-1.0) Aspartate Amino Transferase (AST) 14 U/L (15-37) L Alanine Aminotransferase (ALT) 16 U/L (16-63) Alkaline Phosphatase 48 U/L (46-116) Creatine Kinase 42 U/L (39-308) Creatine Kinase MB (Mass) 0.9 ng/mL (0.0-3.6) Creatine Kinase MB Relative Index % (0-4) Troponin I Quantitative < 0.017 ng/mL (0.000-0.055) DP-Hbc-J-Type Natriuretic Peptide 8456 pg/mL (0-449) H Total Protein 5.9 g/dL (6.4-8.2) L Albumin 2.8 g/dL (3.4-5.0) L Albumin/Globulin Ratio 0.9 (1.0-1.7) L Urine Collection Type Unknown Urine Color Yellow Urine Clarity Clear Urine pH 6.0 (<5.0-8.0) Urine Specific Waterfall 1.015 (1.000-1.030) Urine Protein Negative mg/dL (NEG-TRACE) Urine Glucose (UA) Negative mg/dL (NEG) Urine Ketones (Stick) Negative mg/dL (NEG) Urine Blood Negative (NEG) Urine Nitrite Negative (NEG) Urine Bilirubin Negative (NEG) Urine Urobilinogen Dipstick 0.2 mg/dL (0.2 mg/dL) Urine Leukocyte Esterase Negative (NEG) Urine RBC 0 /HPF (0-2) Urine WBC Occ /HPF (0-4) Urine Transitional Epithelial Cells Occ /LPF Urine Bacteria 0 /HPF (0-FEW) Urine Hyaline Casts Occasional /HPF Laboratory Tests 11/24/19 11:00 Laboratory Tests 11/24/19 11:00 ECHOCARDIOGRAM ECHOCARDIOGRAM <Conclusion> The left ventricle is normal size. The systolic function is mildly impaired. The Ejection Fraction is 45-50%. There is mild global hypokinesis of the left ventricle. There is mild concentric left ventricular hypertrophy. Doppler and Color Flow revealed no significant aortic regurgitation. There is no significant aortic valvular stenosis. Doppler and Color-flow revealed trace to mild mitral regurgitation. Doppler and Color Flow revealed mild tricuspid regurgitation with an estimated PAP of 46 mmHg. DATE: 07/21/19 1210 HEART CATH HEART CATH Conclusion [facility] 1. Mildly elevated left ventricular filling pressures consistent with acute on chronic systolic and diastolic heart failure. 2. Severe three-vessel coronary artery disease 3. Patent bypass graft to the right coronary system. Al grafts to the left coronary system were occluded. Recommendations 1. I had an extensive discussion with the patient regarding his coronary anatomy. Treatment options include continued medical therapy as his RCA is the dominant vessel in his heart and provides the major collateralization to the left system as well. It appears that the right coronary graft is patent. Nonetheless, he has severe left-sided disease. 2. I spoke with the patient about possible high risk PCI of the LAD as this will likely require atherectomy. At this present time we will continue aspirin, Plavix, Imdur, beta blockade and monitor for further symptoms. The patient will make a decision regarding further intervention. Discussed with his as well. 08/30/2019 [facility] HEMODYNAMICS: PCWP: 20 mm Hg PA: 54/13/30 RV: 57/10/16 RA: 6 mm Hg Al: 4.8 L/min PA saturation: 62% PCWP saturation: 98% Conclusion 1. Mildly elevated left sided filling pressures. PCWP 20 mm Hg 2. Normal cardiac output. Recommendations Continue diuresis as tolerated. Consider pulmonary consultation DATE: 08/01/19 1112 ASSESSMENT/PLAN ASSESSMENT/PLAN 1. Acute on chronic systolic/diastolic CHF: bumex given in ED 2. PAFIB with hx of bradycardia: low AFIB burden with past MCOT, SR with no acute EKG changes 3. CAD: past CABG with stent to graft to RCA in 2016. No CP. Recnet [facility] as above 4. Mild ICM; LVEF EF at 45-50% 5. Hypertension; controlled 6. Hyperlipidemia 7. 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 Suspect Dementia 9. Noncompliance: poor diet compliance 10. Dizziness with nontraumatic fall: 2 days ago 11. Anemia of chronic disease: Hgb 8.7, no overt bleed, within his range. Recommendations 1. Significant discussion few months ago in regards to PCI particularly the LAD and at that time elected to continue medical therapy. At the present time no chest pain and no EKG changes. Will continue bumex therapy and start on milrinone drip 2. Continue metoprolol, Imdur per BP trend. Continue statin, ASA/plavix. Hold norvasc 3. He has had frequent multiple hospitalizations due to decompensated CHF.and may need advanced HF therapy and potential transfer to tertiary care. Discussed with pt and will discuss further with spouse in regards to options. Discussed with primary insulation inspector. 2. Monitor renal function, BMP and Mg in AM. 3. Check orthostatic readings GREG CAR MD 11/25/19 8720: CARDIAC CONSULT ASSESSMENT/PLAN ASSESSMENT/PLAN Late entry for 11/24/2019 Pt. seen and examined.Agree with above [employer]LL[employer]EDGE OPERATOR note. TAHMINA LINDO APRN Nov 24, 2019 13:47 GREG CAR MD Nov 25, 2019 23:17
[2019-11-24] MEDS ORDERED: ACET500T68 PO (15:01)
[2019-11-24] MEDS ORDERED: RANO500T2 PO (15:01)
[2019-11-24] MEDS ORDERED: FERR-36 PO (15:01)
[2019-11-24] MEDS ORDERED: NITR0.4T22 SL (15:01)
[2019-11-24] MEDS: MILRINONE 20MG/100ML PREMIX 100 ML IV PRN (15:10)
[2019-11-24] MEDS: BUMETANIDE 1 MG/4 ML VIAL. IV SCH (16:16)
[2019-11-24] MEDS: ATORVASTATIN CALCIUM 10 MG TABLET. PO SCH (20:44)
[2019-11-24] MEDS: ACETAMINOPHEN 325 MG TABLET. PO PRN (20:44)
[2019-11-25] VITALS (16 sets, daily range): BP systolic 113–147; BP diastolic 58–93
--- NOTE | 2019-11-25 03:54 | NUR ---
Pt entered Afib with RVR at approx 0325 with heart rate of 118 and increased to 120's by 0345
[2019-11-25] MEDS: ACETAMINOPHEN 325 MG TABLET. PO PRN (04:28)
[2019-11-25] MEDS ORDERED: DIGOXIN IV 500 MCG/2 ML AMPUL. IV ONE ×2 (04:45→06:45)
[2019-11-25 05:52] LABS: CALCIUM 8.4 mg/dL (8.5-10.1); CREATININE 2.4 mg/dL (0.7-1.3); GFR 26.1; MAGNESIUM 2.2 mg/dL (1.8-2.4); POTASSIUM 4.2 mmol/L (3.5-5.1)
[2019-11-25 06:05] LABS: CHOLESTEROL/HDL RATIO 2.2
[2019-11-25] MEDS ORDERED: ASPIRIN ENTERIC COATED 81 MG TABLET.DR. PO SCH (08:00)
[2019-11-25] MEDS ORDERED: NITROGLYCERIN SUBLINGUAL 0.4 MG BOTTLE OF 25. SL PRN (08:30)
[2019-11-25] MEDS ORDERED: HYDROcodone/APAP 7.5/325MG 1 TAB TABLET PO PRN (08:30)
[2019-11-25] MEDS ORDERED: ACETAMINOPHEN 500 MG TABLET PO PRN (08:30)
--- NOTE | 2019-11-25 08:51 | PDOC ---
Provider Note Provider Note dictated- R effusion same as 09/01, now af/rvr- will add more metop re rate, follow renal/hb- home meds reviewed Justicifation of Admission Dx: Justifications for Admission: Justification of Admission Dx: Yes CHF: Cardiac Arrhythmias LAVONNE MATHEW MD Nov 25, 2019 08:51
[2019-11-25] MEDS ORDERED: POTASSIUM CHLORIDE 20 MEQ TABLET.ER. PO SCH (09:00)
[2019-11-25] MEDS ORDERED: ISOSORBIDE MONONITRATE ER 30 MG TAB.ER.24H PO SCH (09:00)
[2019-11-25] MEDS ORDERED: RANOLAZINE 500 MG TAB.ER.12H PO SCH (09:00)
[2019-11-25] MEDS ORDERED: FUROSEMIDE 40 MG/4 ML VIAL. IVP SCH (09:00)
[2019-11-25] MEDS ORDERED: CLOPIDOGREL BISULFATE 75 MG TABLET PO SCH (09:00)
[2019-11-25] MEDS ORDERED: METOPROLOL TART IMMED RELEASE 25 MG TABLET. PO SCH (09:00)
[2019-11-25] MEDS ORDERED: FINASTERIDE 5 MG TABLET. PO SCH (09:00)
[2019-11-25] MEDS ORDERED: GABAPENTIN 300 MG CAPSULE. PO SCH (09:00)
[2019-11-25] MEDS ORDERED: POLYETHYLENE GLYCOL 3350 17 GM PACKET. PO SCH (09:00)
[2019-11-25] MEDS ORDERED: FERROUS SULFATE 325 MG TABLET. PO SCH (09:00)
[2019-11-25] MEDS ORDERED: FLUoxetine HCL 20 MG CAPSULE PO SCH (09:00)
[2019-11-25] MEDS ORDERED: METOPROLOL SUCC 24HR ER 25 MG TAB.ER.24H. PO SCH (09:00)
[2019-11-25] MEDS: CYANOCOBALAMIN (VITAMIN B-12) 1,000 MCG TABLET. PO SCH (09:22)
[2019-11-25] MEDS: BUMETANIDE 1 MG/4 ML VIAL. IV SCH (09:23)
--- NOTE | 2019-11-25 10:04 | HP ---
ADMIT DATE: 11/25/2019 CHIEF COMPLAINT: Shortness of breath. HISTORY OF PRESENT ILLNESS: The patient with known mild cardiomyopathy from significant coronary artery disease and recurrent atrial fibrillation, came in with shortness of breath, mild orthopnea, unresponsive to outpatient diuretic therapy. He is on milrinone drip now and still has atrial fibrillation that recently started and given digoxin with mild slowing of the heart rate. PAST MEDICAL HISTORY: Well documented in the old record, he has CKD III/IV and anemia of chronic disease, which are stable at this time. MEDICATIONS: Multiple meds listed per the chart. He has declined aggressive left coronary artery intervention at this point, which could not be done at [facility] safely. SOCIAL HISTORY: . Nonsmoker, nondrinker. Physically active. Retired. FAMILY HISTORY: Unremarkable. REVIEW OF SYSTEMS: Unremarkable. OBJECTIVE: ENT: Mild pallor, otherwise within normal limits. NECK: Moderate JVD, no masses or bruits. LUNGS: Decreased breath sounds. No wheezing or tachypnea. CARDIOVASCULAR: Irregular rate consistent with atrial fibrillation. Mild systolic flow murmur is heard. ABDOMEN: Benign. EXTREMITIES: No edema. Reasonably good pedal pulses. NEUROLOGIC: Physiologic, nonfocal. ASSESSMENT: Multiple problems including acute on chronic congestive heart failure, coronary artery disease with left-sided system and recurrent atrial fibrillation. He has anemia of chronic disease, which contributes and chronic kidney disease III/IV as well. Other medical problems are stable. PLAN: Follow renal function and hemoglobin. We will add more metoprolol for rate control at this point. He is considering going to [facility] for aggressive left-sided intervention, but has declined at this point. LAVONNE MATHEW MD DR: EDI/edmundo JOB#: [id number] / [id number]
[2019-11-25] MEDS: RANOLAZINE 500 MG TAB.ER.12H PO SCH ×2 (12:00→20:00)
--- NOTE | 2019-11-25 12:09 | NUR ---
SS following for discharge planning. SS reviewed pt chart and discussed with pt RN. Pt is from home with spouse and is currently requiring oxygen. Pt has home oxygen PRN at . SS will continue to follow for discharge planning.
[2019-11-25] MEDS: GABAPENTIN 300 MG CAPSULE. PO SCH (17:53)
[2019-11-25] MEDS: METOPROLOL TART IMMED RELEASE 25 MG TABLET. PO SCH (17:54)
[2019-11-25] MEDS: MILRINONE 20MG/100ML PREMIX 100 ML IV PRN (17:55)
[2019-11-25] MEDS: ATORVASTATIN CALCIUM 10 MG TABLET. PO SCH (20:49)
[2019-11-25] MEDS: TAMSULOSIN 0.4 MG CAP.ER.24H. PO SCH (20:49)
--- NOTE | 2019-11-25 23:23 | PDOC ---
CARDIOLOGY PROGRESS NOTE SUBJECTIVE: No new events overnight. Patient did not have any improvement in symptoms. Him and his talked about possible [facility] transfer but decided against it. He is still considering aggressive care. No sleep issues overnight. OBJECTIVE: Vital Signs/I&O: Vital Signs Date Time Temp Pulse Resp B/P (MAP) Pulse Ox O2 Delivery O2 Flow Rate FiO2 11/25/19 19:35 Nasal Cannula 2.0 11/25/19 19:20 97.6 53 24 138/58 (84) 98 97.6 I & O 11/24/19 11/24/19 11/25/19 14:59 22:59 06:59 Intake Total 240 ml Output Total 625 ml 600 ml Balance -625 ml -360 ml Objective: a/o x 3. No changes to exam. normal heart tones decreased breath sounds no rashes no Le edema 1+ pulses CURRENT MEDICATIONS: Current Medications Medications (Trade) Dose Ordered Sig/Holden Route PRN Reason Start Time Stop Time Status Last Admin Dose Admin Aspirin (Ecotrin) 81 mg DAILYWBKFT PO 11/25/19 08:00 11/25/19 11:41 DC 11/25/19 09:22 Clopidogrel Bisulfate (Plavix) 75 mg DAILY PO 11/25/19 09:00 11/25/19 11:41 DC 11/25/19 09:21 Potassium Chloride (Klor-Con) 10 meq DAILY PO 11/25/19 09:00 11/25/19 11:45 DC 11/25/19 09:22 Isosorbide Mononitrate (Imdur) 60 mg DAILY PO 11/25/19 09:00 11/25/19 11:43 DC 11/25/19 09:22 Digoxin (Lanoxin) 250 mcg 1X ONCE IV 11/25/19 04:45 11/25/19 04:46 DC 11/25/19 04:53 Digoxin (Lanoxin) 250 mcg 1X ONCE IV 11/25/19 06:45 11/25/19 06:46 DC 11/25/19 06:33 Cyanocobalamin (Vitamin B-12) 500 mcg DAILY PO 11/25/19 09:00 11/25/19 09:22 Ferrous Sulfate (Feosol) 325 mg DAILY PO 11/25/19 09:00 11/25/19 11:42 DC 11/25/19 09:22 Finasteride (Proscar) 5 mg DAILY PO 11/25/19 09:00 11/25/19 11:42 DC 11/25/19 09:21 Tamsulosin HCl (Flomax) 0.4 mg HS PO 11/25/19 21:00 11/25/19 20:49 Fluoxetine HCl (PROzac) 20 mg DAILY PO 11/25/19 09:00 11/25/19 11:42 DC 11/25/19 09:21 Gabapentin (Neurontin) 600 mg BID PO 11/25/19 09:00 11/25/19 11:42 DC 11/25/19 09:21 Metoprolol Tartrate (Lopressor) 25 mg BID PO 11/25/19 09:00 11/25/19 11:43 DC 11/25/19 09:29 Gabapentin (Neurontin) 600 mg DAILY@0600,1800 PO 11/25/19 18:00 11/25/19 17:53 Metoprolol Tartrate (Lopressor) 25 mg BID@0600,1800 PO 11/25/19 18:00 11/25/19 17:54 DIAGNOSTIC TESTING: labs reviewed. Labs: Laboratory Tests 11/25/19 04:58 Laboratory Tests Test 11/25/19 04:58 Sodium Level 143 mmol/L (136-145) Potassium Level 4.2 mmol/L (3.5-5.1) Chloride Level 105 mmol/L (98-107) Carbon Dioxide Level 26 mmol/L (21-32) Anion Gap 12 (6-14) Blood Urea Nitrogen 43 mg/dL (8-26) H Creatinine 2.4 mg/dL (0.7-1.3) H Estimated GFR (Cockcroft-Gault) 26.1 Glucose Level 141 mg/dL (70-99) H Calcium Level 8.4 mg/dL (8.5-10.1) L Cholesterol Level 119 mg/dL (0-200) LDL Cholesterol, Calculated 52 mg/dL (0-100) VLDL Cholesterol, Calculated 12 mg/dL (0-40) Non-HDL Cholesterol Calculated 64 mg/dL (0-129) Cholesterol/HDL Ratio 2.2 ASSESSMENT: 1. Ischemic CMP 2. Acute on chronic systolic and diastolic HF 3. CKD with BARRY 4. HTN 5. COPD PLAN: 1. Continue milrinone and bumex. 2. I discussed again with him today that his only options are possible LVAD or home ionotropic infusion. given his age and kidney disease he would not qualify for a heart transplant. I have again offered him tertiary evaluation at [facility] but he is still thinking about this. Thanks Justicifation of Admission Dx: Justifications for Admission: Justification of Admission Dx: Yes CHF: Cardiac Arrhythmias GREG CAR MD Nov 25, 2019 23:22
[2019-11-26 03:00] VITALS: BP 151/67
[2019-11-26 03:21] LABS: HEMATOCRIT 26.2 % (39.0-53.0); HEMOGLOBIN 8.6 g/dL (13.0-17.5); RED BLOOD COUNT 3.42 x10^6/uL (4.30-5.70); WHITE BLOOD COUNT 6.3 x10^3/uL (4.0-11.0)
[2019-11-26 03:37] LABS: CALCIUM 8.5 mg/dL (8.5-10.1); CREATININE 2.3 mg/dL (0.7-1.3); GFR 27.4; POTASSIUM 3.9 mmol/L (3.5-5.1)
[2019-11-26] MEDS: CLOPIDOGREL BISULFATE 75 MG TABLET PO SCH (05:31)
[2019-11-26] MEDS: ISOSORBIDE MONONITRATE ER 30 MG TAB.ER.24H PO SCH (05:32)
[2019-11-26] MEDS: MULTIVITAMIN with MINERAL TABLET. PO SCH (05:34)
[2019-11-26] MEDS: FERROUS SULFATE 325 MG TABLET. PO SCH (05:34)
[2019-11-26] MEDS: FINASTERIDE 5 MG TABLET. PO SCH (05:34)
[2019-11-26] MEDS: POTASSIUM CHLORIDE 20 MEQ TABLET.ER. PO SCH (05:34)
[2019-11-26] MEDS: METOPROLOL TART IMMED RELEASE 25 MG TABLET. PO SCH ×3 (05:36→20:28)
[2019-11-26] MEDS: GABAPENTIN 300 MG CAPSULE. PO SCH ×2 (05:36→17:40)
[2019-11-26] MEDS: ASPIRIN ENTERIC COATED 81 MG TABLET.DR. PO SCH (05:36)
[2019-11-26] MEDS: PYRIDOXINE 50 MG TABLET. PO SCH (05:36)
[2019-11-26] MEDS: FLUoxetine HCL 20 MG CAPSULE PO SCH (05:37)
[2019-11-26] MEDS: PANTOPRAZOLE 40 MG TABLET.DR. PO SCH (05:37)
[2019-11-26] MEDS: POLYETHYLENE GLYCOL 3350 17 GM PACKET. PO SCH (05:39)
[2019-11-26] MEDS: RANOLAZINE 500 MG TAB.ER.12H PO SCH ×2 (05:39→21:01)
[2019-11-26 07:00] VITALS: BP 144/68
[2019-11-26] MEDS: CYANOCOBALAMIN (VITAMIN B-12) 1,000 MCG TABLET. PO SCH (08:18)
[2019-11-26] MEDS: BUMETANIDE 1 MG/4 ML VIAL. IV SCH (08:20)
--- NOTE | 2019-11-26 09:58 | PDOC ---
GENERAL General: vss and afebrile. awake and alert and very pleasant. chest clear, heart regular, abdomen benign, no edema. O>I. on milrinone drip currently without significant improvement is his sob to date. discussed lvad with him and he doesn't think he wishes to go to . will try some digoxin while here and see if that would help any and probably should have trial of entresto at some point. VITAL SIGNS/I&O Vital Signs/I&O: Vital Signs Date Time Temp Pulse Resp B/P (MAP) Pulse Ox O2 Delivery O2 Flow Rate FiO2 11/26/19 07:00 97.3 51 18 144/68 (93) 94 Nasal Cannula 2.0 97.3 I & O 11/25/19 11/25/19 11/26/19 15:00 23:00 07:00 Intake Total 700 ml 250 ml Output Total 650 ml 450 ml Balance 700 ml -400 ml -450 ml ALLERGIES Allergies: Allergies Coded Allergies Type Severity Reaction Last Updated Verified No Known Medication Allergies Allergy Unknown 11/24/19 Yes hydromorphone Adverse Reaction Mild combative 01/22/18 Yes MEDS Medications: Current Medications Medications (Trade) Dose Ordered Sig/Holden Route PRN Reason Start Time Stop Time Status Last Admin Dose Admin Tamsulosin HCl (Flomax) 0.4 mg HS PO 11/25/19 21:00 11/25/19 20:49 Multivitamins (Thera M Plus) 1 tab DAILY06 PO 11/26/19 06:00 11/26/19 05:34 Pantoprazole Sodium (Protonix) 40 mg DAILY06 PO 11/26/19 06:00 11/26/19 05:37 Pyridoxine HCl (Vitamin B-6) 100 mg DAILY06 PO 11/26/19 06:00 11/26/19 05:36 Aspirin (Ecotrin) 81 mg DAILY06 PO 11/26/19 06:00 11/26/19 05:36 Clopidogrel Bisulfate (Plavix) 75 mg DAILY06 PO 11/26/19 06:00 11/26/19 05:31 Ferrous Sulfate (Feosol) 325 mg DAILY06 PO 11/26/19 06:00 11/26/19 05:34 Finasteride (Proscar) 5 mg DAILY06 PO 11/26/19 06:00 11/26/19 05:34 Fluoxetine HCl (PROzac) 20 mg DAILY06 PO 11/26/19 06:00 11/26/19 05:37 Gabapentin (Neurontin) 600 mg DAILY@0600,1800 PO 11/25/19 18:00 11/26/19 05:36 Isosorbide Mononitrate (Imdur) 60 mg DAILY06 PO 11/26/19 06:00 11/26/19 05:32 Metoprolol Tartrate (Lopressor) 25 mg BID@0600,1800 PO 11/25/19 18:00 11/26/19 05:36 Potassium Chloride (Klor-Con) 10 meq DAILY06 PO 11/26/19 06:00 11/26/19 05:34 LAB Lab: Laboratory Tests Test 11/26/19 03:00 White Blood Count 6.3 x10^3/uL (4.0-11.0) Red Blood Count 3.42 x10^6/uL (4.30-5.70) L Hemoglobin 8.6 g/dL (13.0-17.5) L Hematocrit 26.2 % (39.0-53.0) L Mean Corpuscular Volume 76 fL (79-100) L Mean Corpuscular Hemoglobin 25 pg (25-35) Mean Corpuscular Hemoglobin Concent 33 g/dL (31-37) Red Cell Distribution Width 18.0 % (11.5-14.5) H Platelet Count 159 x10^3/uL (140-400) Sodium Level 139 mmol/L (136-145) Potassium Level 3.9 mmol/L (3.5-5.1) Chloride Level 105 mmol/L (98-107) Carbon Dioxide Level 29 mmol/L (21-32) Anion Gap 5 (6-14) L Blood Urea Nitrogen 44 mg/dL (8-26) H Creatinine 2.3 mg/dL (0.7-1.3) H Estimated GFR (Cockcroft-Gault) 27.4 Glucose Level 142 mg/dL (70-99) H Calcium Level 8.5 mg/dL (8.5-10.1) Laboratory Tests 11/26/19 03:00 Laboratory Tests 11/26/19 03:00 Justicifation of Admission Dx: Justifications for Admission: Justification of Admission Dx: Yes CHF: Cardiac Arrhythmias TIMOTEO RAO MD Nov 26, 2019:58
[2019-11-26] MEDS ORDERED: DIGOXIN IV 500 MCG/2 ML AMPUL. IV ONE (10:00)
[2019-11-26 11:00] VITALS: BP 127/54
[2019-11-26 15:00] VITALS: BP 159/70
[2019-11-26 19:20] VITALS: BP 164/71
[2019-11-26] MEDS: TAMSULOSIN 0.4 MG CAP.ER.24H. PO SCH (21:01)
[2019-11-26] MEDS: ATORVASTATIN CALCIUM 10 MG TABLET. PO SCH (21:01)
[2019-11-26] MEDS ORDERED: hydrALAZINE 20 MG/ML VIAL. IVP ONE (22:30)
[2019-11-26 22:40] VITALS: BP 131/58
--- NOTE | 2019-11-26 23:20 | PDOC ---
CARDIOLOGY PROGRESS NOTE SUBJECTIVE: No new events overnight. I had a very long discussion again today with the patient and his . I discussed home ionotropic infusion versus referral for LVAD versus hospice. Patient does not want any of those options at this time. OBJECTIVE: Vital Signs/I&O: Vital Signs Date Time Temp Pulse Resp B/P (MAP) Pulse Ox O2 Delivery O2 Flow Rate FiO2 11/26/19 22:29 65 170/68 11/26/19 19:32 Nasal Cannula 2.0 11/26/19 19:20 98.1 20 97 98.1 I & O 11/25/19 11/25/19 11/26/19 15:00 23:00 07:00 Intake Total 700 ml 250 ml Output Total 650 ml 450 ml Balance 700 ml -400 ml -450 ml Objective: GEN.: No apparent distress. Alert and oriented. HEENT: Head is normocephalic, atraumatic NECK: Supple. LUNGS: Clear to auscultation. HEART: RRR, S1, S2 present. Peripheral pulses intact ABDOMEN: Soft, nontender. Positive bowel sounds. EXTREMITIES: Without any cyanosis. NEUROLOGIC: Normal speech, normal tone PSYCHIATRIC: Normal affect, normal mood. SKIN: No ulcerations CURRENT MEDICATIONS: Current Medications Medications (Trade) Dose Ordered Sig/Holden Route PRN Reason Start Time Stop Time Status Last Admin Dose Admin Multivitamins (Thera M Plus) 1 tab DAILY06 PO 11/26/19 06:00 11/26/19 05:34 Pantoprazole Sodium (Protonix) 40 mg DAILY06 PO 11/26/19 06:00 11/26/19 05:37 Pyridoxine HCl (Vitamin B-6) 100 mg DAILY06 PO 11/26/19 06:00 11/26/19 05:36 Aspirin (Ecotrin) 81 mg DAILY06 PO 11/26/19 06:00 11/26/19 05:36 Clopidogrel Bisulfate (Plavix) 75 mg DAILY06 PO 11/26/19 06:00 11/26/19 05:31 Ferrous Sulfate (Feosol) 325 mg DAILY06 PO 11/26/19 06:00 11/26/19 05:34 Finasteride (Proscar) 5 mg DAILY06 PO 11/26/19 06:00 11/26/19 05:34 Fluoxetine HCl (PROzac) 20 mg DAILY06 PO 11/26/19 06:00 11/26/19 05:37 Isosorbide Mononitrate (Imdur) 60 mg DAILY06 PO 11/26/19 06:00 11/26/19 05:32 Potassium Chloride (Klor-Con) 10 meq DAILY06 PO 11/26/19 06:00 11/26/19 05:34 Hydralazine HCl (Apresoline Inj) 10 mg 1X ONCE IVP 11/26/19 22:30 11/26/19 22:31 DC 11/26/19 22:29 DIAGNOSTIC TESTING: Labs: Laboratory Tests 11/26/19 03:00 Laboratory Tests Test 11/26/19 03:00 White Blood Count 6.3 x10^3/uL (4.0-11.0) Red Blood Count 3.42 x10^6/uL (4.30-5.70) L Hemoglobin 8.6 g/dL (13.0-17.5) L Hematocrit 26.2 % (39.0-53.0) L Mean Corpuscular Volume 76 fL (79-100) L Mean Corpuscular Hemoglobin 25 pg (25-35) Mean Corpuscular Hemoglobin Concent 33 g/dL (31-37) Red Cell Distribution Width 18.0 % (11.5-14.5) H Platelet Count 159 x10^3/uL (140-400) Sodium Level 139 mmol/L (136-145) Potassium Level 3.9 mmol/L (3.5-5.1) Chloride Level 105 mmol/L (98-107) Carbon Dioxide Level 29 mmol/L (21-32) Anion Gap 5 (6-14) L Blood Urea Nitrogen 44 mg/dL (8-26) H Creatinine 2.3 mg/dL (0.7-1.3) H Estimated GFR (Cockcroft-Gault) 27.4 Glucose Level 142 mg/dL (70-99) H Calcium Level 8.5 mg/dL (8.5-10.1) ASSESSMENT: 1. Ischemic CMP with recurrent HF admissions. 2. CKD PLAN: 1. Patient wants to go home tomorrow. He has not felt better with Milrinone infusion. 2. He is not interested in hospice 3. Plan for outpt referral to HF clinic. Thanks Justicifation of Admission Dx: Justifications for Admission: Justification of Admission Dx: Yes CHF: Cardiac Arrhythmias GREG CAR MD Nov 26, 2019 23:20
[2019-11-27 03:35] VITALS: BP 146/58
[2019-11-27] MEDS: GABAPENTIN 300 MG CAPSULE. PO SCH (05:50)
[2019-11-27] MEDS: FLUoxetine HCL 20 MG CAPSULE PO SCH (05:50)
[2019-11-27] MEDS: ASPIRIN ENTERIC COATED 81 MG TABLET.DR. PO SCH (05:50)
[2019-11-27] MEDS: FERROUS SULFATE 325 MG TABLET. PO SCH (05:51)
[2019-11-27] MEDS: CLOPIDOGREL BISULFATE 75 MG TABLET PO SCH (05:51)
[2019-11-27] MEDS: PANTOPRAZOLE 40 MG TABLET.DR. PO SCH (05:52)
[2019-11-27] MEDS: POTASSIUM CHLORIDE 20 MEQ TABLET.ER. PO SCH (05:52)
[2019-11-27] MEDS: PYRIDOXINE 50 MG TABLET. PO SCH (05:53)
[2019-11-27] MEDS: FINASTERIDE 5 MG TABLET. PO SCH (05:53)
[2019-11-27] MEDS: RANOLAZINE 500 MG TAB.ER.12H PO SCH (05:53)
[2019-11-27] MEDS: MULTIVITAMIN with MINERAL TABLET. PO SCH (05:53)
[2019-11-27] MEDS: ISOSORBIDE MONONITRATE ER 30 MG TAB.ER.24H PO SCH (05:56)
[2019-11-27] MEDS: POLYETHYLENE GLYCOL 3350 17 GM PACKET. PO SCH (05:57)
[2019-11-27] MEDS ORDERED: METOPROLOL TART IMMED RELEASE 25 MG TABLET. PO ONE (06:00)
[2019-11-27 07:00] VITALS: BP 114/70
[2019-11-27 09:02] VITALS: BP 91/43
[2019-11-27 09:04] VITALS: BP 106/47
[2019-11-27] MEDS: CYANOCOBALAMIN (VITAMIN B-12) 1,000 MCG TABLET. PO SCH (09:04)
[2019-11-27 11:00] VITALS: BP 115/48
--- NOTE | 2019-11-27 11:00 | PDOC ---
CARDIOLOGY PROGRESS NOTE SUBJECTIVE: No new events overnight. He is resting in bed watching TV No changes in his symptoms. Discussed case with Dr. Murphy OBJECTIVE: Vital Signs/I&O: Vital Signs Date Time Temp Pulse Resp B/P (MAP) Pulse Ox O2 Delivery O2 Flow Rate FiO2 11/27/19 09:04 54 106/47 (66) 11/27/19 08:00 Nasal Cannula 3.0 11/27/19 07:00 98.0 18 94 98.0 I & O 11/26/19 11/26/19 11/27/19 15:00 23:00 07:00 Intake Total 450 ml Output Total 200 ml 200 ml 700 ml Balance 250 ml -200 ml -700 ml Objective: a/o x 3. NAD Bilateral decreased breath sounds. Normal heart tones. No edema. no focal neurologic deficits CURRENT MEDICATIONS: asa 81mg daily Plavix 75mg daily Metoprolol 25mg p.o bid Imdur 50mg daily Renexa 500mg p.o bid Atorvastatin 10mg daily DIAGNOSTIC TESTING: Cr 2.4 ASSESSMENT: 1. Ischemic CMP with EF of 20% 2. Severe [place] three vessel coronary disease with occlusion of left sided grafts and severe LM and LAD disease. 3. HTN 4. DLP 5. COPD on home O2. PLAN: 1. Would send home on ASA 81mg daily, Plavix 75mg and statin daily for his coronary disease. 2. From a HF perspective, recommend DC on Toprol XL 50mg daily. He unfortunately does not qualify acutely for sanford-inh or entresto due to renal failure. He also does not qualify for Digoxin due to renal failure. Unable to start spironolactone due to renal failure as well. Continue imdur. If BP tolerates on an outpt basis, consider Hydralazine. 3. Home on Bumex 1 mg p.o daily. Pls call with questions. Will refer him to [facility] HF clinic from our office. Thanks. Justicifation of Admission Dx: Justifications for Admission: Justification of Admission Dx: Yes CHF: Cardiac Arrhythmias GREG CAR MD Nov 27, 2019 11:00
[2019-11-27] MEDS: BUMETANIDE 1 MG/4 ML VIAL. IV SCH (11:01)
--- NOTE | 2019-11-27 12:23 | DS ---
DATE OF DISCHARGE: 11/27/2019 PRIMARY DIAGNOSIS: Acute on chronic systolic congestive heart failure. ADDITIONAL DIAGNOSES: 1. Ischemic cardiomyopathy with an ejection fraction of 20%. 2. 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 3. Hypertension. 4. Chronic obstructive pulmonary disease. 5. Hyperlipidemia. CHIEF COMPLAINT AND HISTORY OF PRESENT ILLNESS: This 79-year-old white male admitted through the Emergency Room with shortness of breath and chest pain. SUMMARY OF STAY: The patient was admitted and found to be on in congestive heart failure once again. Milrinone drip was tried during the stay with minimal improvement. He did continue to have neck and jaw discomfort with exertion down the hale. Cardiology offered evaluation at [facility] to explore other options such as Elavil, etc. They will make an appointment for the same for him after discharge, which he is willing to listen, but he is not sure that he is willing to do anything aggressive at this point. Hospice was discussed with him and he is not ready for that at this point. The patient was felt he could be dismissed on the day of discharge and this was accomplished. DISPOSITION: The patient is discharged to home. DIET: Low sodium diet. ACTIVITY: As tolerated. FOLLOWUP: Office Dr. Renner in 1 week. DISCHARGE MEDICATIONS: Listed on the med rec and have been addressed. TIMOTEO RAO MD DR: MARIA A/edmundo JOB#: [id number] / [id number] LAVONNE Szymanski MD
--- NOTE | 2019-11-27 12:50 | NUR ---
Discharge Note: STALIN SUAREZ [address] [place] Discharge instructions and discharge home medications reviewed with Patient and a copy given. All questions have been answered and understanding verbalized. The following instructions and handouts were given: discharge instructions, CHF info, low sodium diet info. Discontinued lines and drains: Peripheral IV intact. Patient discharged to Home or Self Care with Spouse via Ambulated at 1250.
== END 2019-11-27 12:50 | disposition home or self-care (01) | DRG 291 ==
LOC: ER 10:30 → 2 NORTH 13:15
PROVIDERS: ADMIT Family Medicine; ATTEND Family Medicine
DX: I13.0 Hypertensive heart and chronic kidney disease with heart failure and stage 1 through stage 4 chronic kidney disease, or unspecified chronic kidney disease (principal); I50.43 Acute on chronic combined systolic (congestive) and diastolic (congestive) heart failure; N18.4 Chronic kidney disease, stage 4 (severe); N17.9 Acute kidney failure, unspecified; I25.10 Atherosclerotic heart disease of native coronary artery without angina pectoris; Z96.649 Presence of unspecified artificial hip joint; Z96.659 Presence of unspecified artificial knee joint; G62.9 Polyneuropathy, unspecified; K21.9 Gastro-esophageal reflux disease without esophagitis; D63.8 Anemia in other chronic diseases classified elsewhere; R09.02 Hypoxemia; E78.5 Hyperlipidemia, unspecified; F03.90 Unspecified dementia, unspecified severity, without behavioral disturbance, psychotic disturbance, mood disturbance, and anxiety; N40.0 Benign prostatic hyperplasia without lower urinary tract symptoms; I25.5 Ischemic cardiomyopathy; J44.9 Chronic obstructive pulmonary disease, unspecified; I48.0 Paroxysmal atrial fibrillation; W19.XXXA Unspecified fall, initial encounter; Y93.89 Activity, other specified; Y92.89 Other specified places as the place of occurrence of the external cause; Y99.8 Other external cause status; Z99.81 Dependence on supplemental oxygen; I25.2 Old myocardial infarction; Z95.1 Presence of aortocoronary bypass graft; Z95.5 Presence of coronary angioplasty implant and graft; Z87.891 Personal history of nicotine dependence; Z86.61 Personal history of infections of the central nervous system; Z91.19 Patient's noncompliance with other medical treatment and regimen; Z98.49 Cataract extraction status, unspecified eye; Z98.1 Arthrodesis status; Z88.8 Allergy status to other drugs, medicaments and biological substances
CPT/HCPCS: 36415; 71045; 80048; 80053; 80061; 81001; 82553; 83605; 83735; 83880; 84484; 85025; 85027; 85610; 85730; 93005; 96374; J0360; J1160; J2260; J3490; 99285-25; G0378